=== PATIENT | male | born 1980 | race African-American/Black ===

== ENCOUNTER 2019-03-19 09:29 | Emergency (ER) | payer OTHER ==
--- NOTE | 2019-03-19 10:11 | ER ---
Nurse's Notes [facility] Name: Kishor Grajeda Age: 38 yrs Sex: Male : 1980 Arrival Date: 03/19/2019 Time: 09:31 Bed 20 Private MD: Diagnosis: Influenza due to identified novel influenza A virus Presentation: 03/19 09:40 Presenting complaint: Patient states: cough, body aches and chills that began 3 days ss ago. Transition of care: patient was not received from another setting of care. Onset of symptoms was March 16, 2019. Risk Assessment: Do you want to hurt yourself or someone else? Patient reports no desire to harm self or others. Initial Sepsis Screen: Does the patient meet any 2 criteria? No. Patient's initial sepsis screen is negative. Does the patient have a suspected source of infection? No. Patient's initial sepsis screen is negative. Care prior to arrival: None. 09:40 Method Of Arrival: Ambulatory ss 09:40 Acuity: RODRÍGUEZ 4 ss Triage Assessment: 09:40 General: Appears in no apparent distress. comfortable, ill, Behavior is calm, bp cooperative, appropriate for age. Pain: Complains of pain in GENERAL MALAISE. EENT: Reports nasal congestion. Neuro: No deficits noted. Cardiovascular: No deficits noted. Respiratory: No deficits noted. GI: No signs and/or symptoms were reported involving the gastrointestinal system. : No signs and/or symptoms were reported regarding the genitourinary system. Derm: No deficits noted. Musculoskeletal: No deficits noted. Historical: - Allergies: 09:42 No Known Allergies; ss - PMHx: 09:42 Diabetes - IDDM; ss - PSHx: 09:42 None; ss - Immunization history:: Adult Immunizations up to date. - Social history:: Smoking status: Patient reports the use of cigarette tobacco products, smokes one-half pack cigarettes per day. - Ebola Screening: : Patient denies exposure to infectious person Patient denies travel to an Ebola-affected area in the 21 days before illness onset. Screenin:40 Abuse screen: Denies threats or abuse. Denies injuries from another. Nutritional bp screening: No deficits noted. Tuberculosis screening: No symptoms or risk factors identified. Fall Risk None identified. Assessment: 09:40 General: SEE TRIAGE NOTE. bp 10:38 Reassessment: PT D/C HOME AMBULATORY, DX WITH INFLUENZA. bp Vital Signs: 09:39 BP 147 / 102; Pulse 105; Resp 14; Temp 99.7(TE); Pulse Ox 98% on R/A; Weight 79.38 kg; ss Height 6 ft. 0 in. (182.88 cm); Pain 6/10; 10:39 BP 151 / 95; Pulse 97; Resp 17; Temp 99.9; Pulse Ox 98% ; bp 09:39 Body Mass Index 23.73 (79.38 kg, 182.88 cm) ED Course: 09:31 Patient arrived in ED. ds1 09:36 Kings Marrero, RN is Primary Nurse. bp 09:39 Arm band placed on right wrist. ss 09:40 Chikis Gallegos F[facility]-C [facility]. kb 09:40 Mikhail Jacobs MD is Attending Physician. kb 09:40 Patient has correct armband on for positive identification. Bed in low position. Call bp light in reach. Side rails up X2. 09:41 Triage completed. ss 10:39 No provider procedures requiring assistance completed. Patient did not have IV access bp during this emergency room visit. Administered Medications: No medications were administered Outcome: 10:10 Discharge ordered by MD. kb 10:39 Discharged to home ambulatory. bp 10:39 Condition: stable 10:39 Discharge instructions given to patient, Instructed on discharge instructions, follow up and referral plans. Demonstrated understanding of instructions, follow-up care. 10:40 Patient left the ED. bp Signatures: Chikis Gallegos FNP-C FNP-Ckb Sanford, Demi ds1 Ember Eason RN RN Kings Marrero, RN RN bp
--- NOTE | 2019-03-19 10:12 | EDPHYS ---
Physician Documentation [facility] Name: Kishor Grajeda Age: 38 yrs Sex: Male : 1980 Arrival Date: 03/19/2019 Time: 09:31 Bed 20 Private MD: ED Physician Mikhail Jacobs HPI: 03/19 10:23 This 38 yrs old Black Male presents to ER via Ambulatory with complaints of Flu kb Symptoms. 10:29 The patient or guardian reports cough, that is intermittent, described as moderate, kb with no sputum, flu symptoms, low-grade fever, myalgias. Onset: The symptoms/episode began/occurred 4 day(s) ago. Severity of symptoms: At their worst the symptoms were moderate, in the emergency department the symptoms are unchanged. Modifying factors: The symptoms are alleviated by nothing, the symptoms are aggravated by nothing. Associated signs and symptoms: Pertinent positives: fever, rhinorrhea, sore throat. The patient has not experienced similar symptoms in the past. The patient has not recently seen a physician. Historical: - Allergies: 09:42 No Known Allergies; ss - PMHx: 09:42 Diabetes - IDDM; ss - PSHx: 09:42 None; ss - Immunization history:: Adult Immunizations up to date. - Social history:: Smoking status: Patient reports the use of cigarette tobacco products, smokes one-half pack cigarettes per day. - Ebola Screening: : Patient denies exposure to infectious person Patient denies travel to an Ebola-affected area in the 21 days before illness onset. ROS: 10:23 Cardiovascular: Negative for chest pain, palpitations, and edema, Abdomen/GI: Negative kb for abdominal pain, nausea, vomiting, diarrhea, and constipation, Back: Negative for injury and pain, : Negative for injury, bleeding, discharge, and swelling, MS/Extremity: Negative for injury and deformity, Skin: Negative for injury, rash, and discoloration, Neuro: Negative for headache, weakness, numbness, tingling, and seizure. 10:23 Constitutional: Positive for body aches, chills, fatigue, fever, malaise, poor PO intake. 10:23 ENT: Positive for rhinorrhea, sore throat. 10:23 Respiratory: Positive for cough, Negative for dyspnea on exertion, hemoptysis, orthopnea, pleurisy, shortness of breath, sputum production, wheezing. Exam: 10:23 Constitutional: This is a well developed, well nourished patient who is awake, alert, kb and in no acute distress. Head/Face: Normocephalic, atraumatic. ENT: Nares patent. No nasal discharge, no septal abnormalities noted. Tympanic membranes are normal and external auditory canals are clear. Oropharynx with no redness, swelling, or masses, exudates, or evidence of obstruction, uvula midline. Mucous membranes moist. Neck: Trachea midline, no thyromegaly or masses palpated, and no cervical lymphadenopathy. Supple, full range of motion without nuchal rigidity, or vertebral point tenderness. No Meningismus. Chest/axilla: Normal chest wall appearance and motion. Nontender with no deformity. No lesions are appreciated. Cardiovascular: Regular rate and rhythm with a normal S1 and S2. No gallops, murmurs, or rubs. Normal PMI, no JVD. No pulse deficits. Respiratory: Lungs have equal breath sounds bilaterally, clear to auscultation and percussion. No rales, rhonchi or wheezes noted. No increased work of breathing, no retractions or nasal flaring. Abdomen/GI: Soft, non-tender, with normal bowel sounds. No distension or tympany. No guarding or rebound. No evidence of tenderness throughout. Skin: Warm, dry with normal turgor. Normal color with no rashes, no lesions, and no evidence of cellulitis. MS/ Extremity: Pulses equal, no cyanosis. Neurovascular intact. Full, normal range of motion. Neuro: Awake and alert, GCS 15, oriented to person, place, time, and situation. Cranial nerves II-XII grossly intact. Motor strength 5/5 in all extremities. Sensory grossly intact. Cerebellar exam normal. Normal gait. Vital Signs: 09:39 BP 147 / 102; Pulse 105; Resp 14; Temp 99.7(TE); Pulse Ox 98% on R/A; Weight 79.38 kg; ss Height 6 ft. 0 in. (182.88 cm); Pain 6/10; 10:39 BP 151 / 95; Pulse 97; Resp 17; Temp 99.9; Pulse Ox 98% ; bp 09:39 Body Mass Index 23.73 (79.38 kg, 182.88 cm) ss MDM: 09:40 Patient medically screened. kb 10:10 Data reviewed: vital signs, nurses notes. Data interpreted: Pulse oximetry: on room air kb is 98 %. Interpretation: normal. Counseling: I had a detailed discussion with the patient and/or guardian regarding: the historical points, exam findings, and any diagnostic results supporting the discharge/admit diagnosis, lab results, the need for outpatient follow up, a family practitioner, to return to the emergency department if symptoms worsen or persist or if there are any questions or concerns that arise at home. 03/19 09:40 Order name: Flu; Complete Time: 10:01 kb 03/19 09:40 Order name: Strep; Complete Time: 10:10 kb 03/19 10:08 Order name: Throat Culture EDMS Administered Medications: No medications were administered Disposition: 03/20 07:55 Co-signature as Attending Physician, Mikhail Jacobs MD I agree with the assessment and tw4 plan of care. Disposition: 03/19/19 10:10 Discharged to Home. Impression: Influenza due to identified novel influenza A virus. - Condition is Stable. - Discharge Instructions: Influenza, Adult, [id number], Viral Respiratory Infection, [id number]. - Medication Reconciliation Form, Thank You Letter, Antibiotic Education, Prescription Opioid Use, Work release form form. - Follow up: Emergency Department; When: As needed; Reason: Worsening of condition. Follow up: Private Physician; When: 2 - 3 days; Reason: Recheck today's complaints, Continuance of care, Re-evaluation by your physician. Signatures: Dispatcher [employer] EDSC Chikis Gallegos, DARBY-C DARBY-Ember Langston RN RN ss Peltier, Brian, RN RN bp Wadley, Terrence, MD MD tw4 Corrections: (The following items were deleted from the chart) 03/19 10:40 10:10 03/19/2019 10:10 Discharged to Home. Impression: Influenza due to identified bp novel influenza A virus. Condition is Stable. Forms are Medication Reconciliation Form, Thank You Letter, Antibiotic Education, Prescription Opioid Use. Follow up: Emergency Department; When: As needed; Reason: Worsening of condition. Follow up: Private Physician; When: 2 - 3 days; Reason: Recheck today's complaints, Continuance of care, Re-evaluation by your physician. kb
== END 2019-03-19 10:40 | disposition home or self-care (01) ==
LOC: ER 09:29
DX: J10.1 Influenza due to other identified influenza virus with other respiratory manifestations (principal); F17.210 Nicotine dependence, cigarettes, uncomplicated
CPT/HCPCS: 87070; 87081; 87804; 99281

== ENCOUNTER 2022-02-09 11:23 | Inpatient (IN) | payer SELFPAY ==
--- NOTE | 2022-02-09 12:22 | ER ---
Nurse's Notes [facility] Name: Kishor Grajeda Age: 41 yrs Sex: Male : 1980 Arrival Date: 02/09/2022 Time: 11:25 Bed 7 Private MD: Diagnosis: Cellulitis of right lower limb;Type 2 diabetes mellitus with foot ulcer;Hypo-osmolality and hyponatremia;Sepsis without end organ dysfunction Presentation: 02/09 11:59 Chief complaint: Patient states: right foot infection x2 months; has been seeing wound [facility] care here on campus x2 months, was placed on oral antibiotics last week and isnt getting better. Coronavirus screen: Vaccine status: Patient reports being unvaccinated. Client denies travel out of the [place] in the last 14 days. Ebola Screen: Patient negative for fever greater than or equal to 101.5 degrees Fahrenheit, and additional compatible Ebola Virus Disease symptoms Patient denies exposure to infectious person. Patient denies travel to an Ebola-affected area in the 21 days before illness onset. Initial Sepsis Screen: Does the patient meet any 2 criteria? No. Patient's initial sepsis screen is negative. Does the patient have a suspected source of infection? No. Patient's initial sepsis screen is negative. Risk Assessment: Do you want to hurt yourself or someone else? Patient reports no desire to harm self or others. 11:59 Method Of Arrival: Ambulatory [facility] 11:59 Acuity: RODRÍGUEZ 3 [facility] Triage Assessment: 12:01 General: Appears uncomfortable, slender, well groomed, well developed, Behavior is [facility] calm, cooperative, appropriate for age. Pain: Denies pain. Historical: - Allergies: 12:01 No Known Allergies; [facility] - Home Meds: 15:36 Glimepiride Oral 4 mg twice a day [Active]; aa5 - PMHx: 15:36 Diabetes mellitus; aa5 - Immunization history:: Adult Immunizations up to date. - Social history:: Smoking status: Patient reports the use of cigarette tobacco products, denies chronic smoking, but will smoke occasionally. Screenin:35 Abuse screen: Denies threats or abuse. Denies injuries from another. Nutritional iw screening: No deficits noted. Tuberculosis screening: No symptoms or risk factors identified. Fall Risk IV access (20 points). Assessment: 12:45 Reassessment: First set of blood cultures sent. mb9 Vital Signs: 11:59 BP 148 / 97; Pulse 110; Resp 18; Temp 98.6; Pulse Ox 100% ; Weight 74.84 kg; Height 6 5 ft. 0 in. (182.88 cm); Pain 0/10; 13:08 BP 130 / 95; Pulse 104; Resp 18; Pulse Ox 100% on R/A; mb9 20:21 BP 125 / 88; Pulse 114; Resp 18; Pulse Ox 100% on R/A; ll3 11:59 Body Mass Index 22.38 (74.84 kg, 182.88 cm) 5 ED Course: 11:25 Patient arrived in ED. mr 11:26 Anton Corral DO is Attending Physician. ms3 12:01 Triage completed. 5 12:01 Arm band placed on right wrist. 5 12:03 Nathalie Rios, RN is Primary Nurse. iw 12:21 Everardo Mcgee is Hospitalizing Provider. ms3 12:40 Inserted saline lock: 20 gauge in right forearm, using aseptic technique. Blood mb9 collected. 12:53 SARS RAPID Sent. mb9 12:54 CBC with Diff Sent. mb9 12:54 CMP Sent. mb9 12:54 Lactate w/ 2H reflex if indic. Sent. mb9 12:54 Protime (+inr) Sent. mb9 12:54 Ptt, Activated Sent. mb9 13:07 Blood Culture Adult (2) Sent. mb9 13:35 Patient has correct armband on for positive identification. Bed in low position. Call iw light in reach. Side rails up X 1. Pulse ox on. NIBP on. Administered Medications: 13:04 Drug: NS 0.9% 1000 ml Route: IV; Rate: 1000 ml; Site: right forearm; mb9 13:15 Drug: vancoMYCIN 1 grams Route: IVPB; Infused Over: 2 hrs; Site: right antecubital; iw 13:24 Drug: Cipro (ciprofloxacin) 400 mg Volume: 200 ml; Route: IVPB; Infused Over: 60 mins; iw Site: left antecubital; Outcome: 12:21 Decision to Hospitalize by Provider. ms3 20:35 Patient left the ED. jb4 Signatures: Kaitlyn Urena mr Nathalie Rios, RN RN iw Franny Greene RN RN [id number] Jameel Do RN RN jb4 Anton Corral, DO CUELLAR ms3 Latasha Nassar RN RN jh5 Ainsley Palomino RN RN ll3 Kaitlyn Dyson RN RN mb9 Corrections: (The following items were deleted from the chart) 15:37 12:01 PMHx: Diabetes - IDDM; Nasra aa5
--- NOTE | 2022-02-09 12:22 | EDPHYS ---
Physician Documentation [facility] Name: Kishor Grajeda Age: 41 yrs Sex: Male : 1980 Arrival Date: 02/09/2022 Time: 11:25 Bed 7 Private MD: ED Physician Anton Corral HPI: 02/09 12:37 This 41 yrs old Black Male presents to ER via Ambulatory with complaints of Wound ms3 Infection. 12:37 The patient's rash thought to be caused by Ulceration on foot. The rash is located on ms3 the right lateral foot. The rash can be described as Ulceration. Onset: The symptoms/episode began/occurred 1 week(s) ago. Associated signs and symptoms: Pertinent positives: Pain Pertinent negatives:. Severity of symptoms: At their worst the symptoms were moderate in the emergency department the symptoms are unchanged Pain is currently a 5 / 10. 41-year-old male with past medical history of diabetes presents for right foot ulceration, and cellulitis. Patient was seen in wound care clinic and sent to the emergency department for admission.. Historical: - Allergies: 12:01 No Known Allergies; jh5 - Home Meds: 15:36 Glimepiride Oral 4 mg twice a day [Active]; aa5 - PMHx: 15:36 Diabetes mellitus; aa5 - Immunization history:: Adult Immunizations up to date. - Social history:: Smoking status: Patient reports the use of cigarette tobacco products, denies chronic smoking, but will smoke occasionally. ROS: 12:37 Constitutional: Negative for fever, and chills. Neck: Negative for injury, pain, and ms3 swelling, Cardiovascular: Negative for chest pain, and palpitations. Respiratory: Negative for shortness of breath, cough, wheezing, and pleuritic chest pain, Abdomen/GI: Negative for abdominal pain, nausea, vomiting, diarrhea, and constipation, MS/Extremity: Negative for injury and deformity. 12:37 Skin: Positive for ulceration. 12:37 All other systems are negative. Exam: 12:37 Constitutional: This is a well developed, well nourished patient who is awake, alert, ms3 and in no acute distress. Head/Face: Normocephalic, atraumatic. Neck: Trachea midline, no cervical lymphadenopathy. Supple, full range of motion without nuchal rigidity, or vertebral point tenderness. No Meningismus. Chest/axilla: Normal chest wall appearance and motion. Nontender with no deformity. Cardiovascular: Regular rate and rhythm with a normal S1 and S2. No gallops, murmurs, or rubs. Normal PMI, no JVD. No pulse deficits. Respiratory: Lungs have equal breath sounds bilaterally, clear to auscultation and percussion. No rales, rhonchi or wheezes noted. No increased work of breathing, no retractions or nasal flaring. Abdomen/GI: Soft, non-tender, with normal bowel sounds. No distension or tympany. No guarding or rebound. No evidence of tenderness throughout. 12:37 Skin: lesion(s), noted, and can be described as erythematous, ulcerated, Foul smelling. 13:15 ECG was reviewed by the Attending Physician. ms3 Vital Signs: 11:59 BP 148 / 97; Pulse 110; Resp 18; Temp 98.6; Pulse Ox 100% ; Weight 74.84 kg; Height 6 jh5 ft. 0 in. (182.88 cm); Pain 0/10; 13:08 BP 130 / 95; Pulse 104; Resp 18; Pulse Ox 100% on R/A; mb9 20:21 BP 125 / 88; Pulse 114; Resp 18; Pulse Ox 100% on R/A; ll3 11:59 Body Mass Index 22.38 (74.84 kg, 182.88 cm) 5 MDM: 11:26 Patient medically screened. ms3 12:37 Differential diagnosis: Cellulitis vs Gangrene vs Diabetic foot ulcer. ms3 18:53 Data reviewed: vital signs, nurses notes, lab test result(s), EKG, radiologic studies, ms3 and as a result, I will admit patient. Counseling: I had a detailed discussion with the patient and/or guardian regarding: the historical points, exam findings, and any diagnostic results supporting the discharge/admit diagnosis, lab results, radiology results, the need for further work-up and treatment in the hospital. ED course: Case discussed with hospitalist and accepted patient. All questions were answered. Discussed plan for admission with patient and his they understand and agree with plan.. 02/09 12:17 Order name: Blood Culture Adult (2) ms3 02/09 12:17 Order name: CBC with Diff; Complete Time: 13:14 ms3 02/09 12:17 Order name: CMP; Complete Time: 18:53 ms3 02/09 12:17 Order name: Lactate w/ 2H reflex if indic.; Complete Time: 13:32 ms3 02/09 12:17 Order name: Protime (+inr); Complete Time: 13:14 ms3 02/09 12:17 Order name: Ptt, Activated; Complete Time: 13:14 ms3 02/09 12:27 Order name: SARS RAPID; Complete Time: 13:32 mb9 02/09 12:57 Order name: Glucose, Ancillary Testing; Complete Time: 13:14 EDMS 02/09 13:57 Order name: Phosphorus; Complete Time: 18:53 EDMS 02/09 13:57 Order name: Creatine Phosphokinase; Complete Time: 18:53 EDMS 02/09 13:57 Order name: NT PRO-BNP; Complete Time: 18:53 EDMS 02/09 13:57 Order name: Magnesium; Complete Time: 18:53 EDMS 02/09 16:40 Order name: Glucose, Ancillary Testing; Complete Time: 18:53 EDMS 02/09 12:17 Order name: EKG; Complete Time: 12:18 ms3 02/09 12:17 Order name: Accucheck; Complete Time: 12:53 ms3 02/09 12:17 Order name: Cardiac monitoring; Complete Time: 12:24 ms3 02/09 12:17 Order name: EKG - Nurse/Tech; Complete Time: 12:53 ms3 02/09 12:17 Order name: IV Saline Lock - Large Bore; Complete Time: 12:54 ms3 02/09 12:17 Order name: Labs collected and sent; Complete Time: 12:54 ms3 02/09 12:17 Order name: O2 Per Protocol; Complete Time: 12:24 ms3 02/09 12:17 Order name: O2 Sat Monitoring; Complete Time: 12:24 ms3 02/09 12:17 Order name: Vital Signs; Complete Time: 12:54 ms3 EC:15 Rate is 107 beats/min. Rhythm is regular. Right axis deviation noted. OH interval is ms3 normal. QRS interval is normal. Clinical impression: Sinus tachycardia. Interpreted by me. Reviewed by me. Administered Medications: 13:04 Drug: NS 0.9% 1000 ml Route: IV; Rate: 1000 ml; Site: right forearm; mb9 13:15 Drug: vancoMYCIN 1 grams Route: IVPB; Infused Over: 2 hrs; Site: right antecubital; iw 13:24 Drug: Cipro (ciprofloxacin) 400 mg Volume: 200 ml; Route: IVPB; Infused Over: 60 mins; iw Site: left antecubital; Disposition Summary: 02/09/22 12:21 Hospitalization Ordered Hospitalization Status: Inpatient Admission ms3 Provider: Everardo Mcgee ms3 Location: Telemetry/MedSurg (Inpatient) ms3 Condition: Stable ms3 Problem: new ms3 Symptoms: are unchanged ms3 Bed/Room Type: Standard ms3 Room Assignment: 209(02/09/22 18:47) bd Diagnosis - Cellulitis of right lower limb ms3 - Type 2 diabetes mellitus with foot ulcer ms3 - Hypo-osmolality and hyponatremia ms3 - Sepsis without end organ dysfunction ms3 Forms: - Medication Reconciliation Form ms3 - SBAR form ms3 Signatures: Dispatcher [employer] EDNani Dudley bd Nathalie Rios RN RN Franny Greene RN RN aa5 Anton Corral DO DO ms3 Latasha Nassar RN RN 5 Kaitlyn Dyson RN RN mb9 Corrections: (The following items were deleted from the chart) 15:37 12:01 PMHx: Diabetes - IDDM; 5 aa5 18:47 12:21 ms3 bd
[2022-02-09] MEDS ORDERED: VANCOMYCIN 1 GM/VIAL ONE (12:48)
[2022-02-09] MEDS ORDERED: ACETAMINOPHEN 325 MG TABLET PO PRN (12:48)
[2022-02-09] MEDS ORDERED: NA CHLORIDE 0.9% 0 ML ONE (12:49)
[2022-02-09] MEDS ORDERED: CIPROFLOXACIN 400mg IV 400 MG/200 ML BAG IV ONE (12:49)
[2022-02-09] MEDS ORDERED: NA CHLORIDE 0.9% 1,000 ML ONE (12:49)
[2022-02-09] MEDS ORDERED: ONDANSETRON 4 MG/2 ML VIAL IV PRN (12:50)
--- NOTE | 2022-02-09 12:57 | P.HP ---
Certification for Inpatient Patient admitted to: Inpatient With expected LOS: >2 Midnights Patient will require the following post-hospital care: None Practitioner: I am a practitioner with admitting privileges, knowledge of patient current condition, hospital course, and medical plan of care. Services: Services provided to patient in accordance with Admission requirements found in Title 42 Section 412.3 of the Code of Federal Regulations Patient History Date of Service: 02/09/22 Reason for admission: Right foot diabetic ulcer. History of Present Illness: Patient is a 41-year-old male with a past medical history significant for DM 2 and nicotine dependence who presents with complaint of right foot diabetic ulcer. Patient reported that he has been following up with a wound care clinic for his diabetic foot ulcer on his right foot for the past 2 months. Patient reported that he was prescribed antibiotics by the wound care doctor and a couple of days patient developed a blister on top of his right foot. Patient indicated that blister became enlarged and turned into a wound. Patient also reports drainage and odor from both wounds-- on top of his foot and below his foot. Patient also reports pain, redness and swelling to his right foot. Patient rated pain as 5/10 in severity and described pain as throbbing in quality. Patient denies any other signs or symptoms. Symptoms are aggravated by weight bearing and relieved by nothing. Patient reported that he followed up with his wound care clinic today and was instructed to go to the ER for further management. Allergies No Known Drug Allergies Allergy (Verified 02/09/22 16:42) Unknown Home Medications: Glyburide [Diabeta] 10 mg PO BID #60 tablet 03/12/13 - Past Medical/Surgical History Diabetic: Yes -: DM Past Surgical History: Reviewed- Non-Contributory - Family History Family History: Reviewed- Non-Contributory - Social History Smoking Status: Current every day smoker Counseled patient to stop smoking for: less than 10 minutes Smoking therapy provided: Yes Patient receptive to therapy: Yes Alcohol use: No CD- Drugs: No Caffeine use: Yes Place of Residence: Home Review of Systems General: Unremarkable Eyes: Unremarkable ENT: Unremarkable Respiratory: Unremarkable Cardiovascular: Unremarkable Gastrointestinal: Unremarkable Genitourinary: Unremarkable Musculoskeletal: Foot Pain, Other (Right foot swelling ) Integumentary: Other (right foot redness ) Neurological: Unremarkable Lymphatics: Unremarkable Physical Examination - Physical Exam General: Alert, In no apparent distress, Oriented x3, Cooperative HEENT: Atraumatic, PERRLA, Mucous membr. moist/pink, EOMI, Sclerae nonicteric Neck: Supple, 2+ carotid pulse no bruit, No LAD, Without JVD or thyroid abnormality Respiratory: Clear to auscultation bilaterally, Normal air movement Cardiovascular: Regular rate/rhythm, Normal S1 S2 Capillary refill: <2 Seconds Gastrointestinal: Normal bowel sounds, Non-distended, No tenderness Musculoskeletal: Swelling, Tenderness Integumentary: Skin breakdown, Erythema, Diabetic ulcer Neurological: Normal speech, Normal tone, Normal affect Lymphatics: No axilla or inguinal lymphadenopathy Assessment and Plan - Plan --Right foot diabetic ulcer. Surgeon consulted. MRI of right foot to assess for osteomyelitis. Blood cultures pending. Continue antibiotics. Infectious disease MD consulted. Will await further recommendation from consultants. --Right foot cellulitis. Blood cultures pending. Continue antibiotics. --Acute pain. We will manage pain with current pain medication regimen. --DM2 with hyperglycemia. BS monitoring with sliding scale insulin, Premeal insulin and Lantus. --Leukocytosis. Blood cultures pending. Continue antibiotics. --Anemia of chronic disease. H&H stable. We will continue to monitor hemoglobin and transfuse if less than 7.0. --Hyponatremia. Likely secondary to hyperglycemia. We will keep blood sugar controlled. We will continue to monitor sodium levels. --CKD 2. Stable. We will continue to monitor renal functions. --DVT prophylaxis with heparin subQ. Discharge Plan: Home Plan to discharge in: Greater than 2 days - Advance Directives Does patient have a Living Will: No Does patient have a Durable POA for Healthcare: No - Code Status/Comfort Care Code Status Assessed: Yes Physician Review: Patient Assessed, Agree with Above Assessment and Plan Critical Care: No
[2022-02-09 12:58] LABS: Absolute Lymphocytes (CBC) 1.6 K/uL (0.7-4.9); Lymphocytes % 11.1 % (15.3-44.8); MCV 89.1 fL (80-100); MPV 7.8 fL (7.6-11.3); RBC Red Blood Cell Count 3.37 M/uL (4.33-5.43)
[2022-02-09 13:05] LABS: Protime INR 1.16
[2022-02-09 13:15] LABS: SARS-CoV-2 Antigen Rapid Res Negative (Negative)
[2022-02-09 13:17] LABS: AST/SGOT 4 U/L (15-37); Albumin 2.7 g/dL (3.4-5.0); Alkaline Phosphatase 94 U/L (45-117); BUN Blood Urea Nitrogen 14 mg/dL (7-18); Bicarbonate 27 mmol/L (21-32); Bilirubin Total 0.9 mg/dL (0.2-1.0); Glomerular Filtration Rate 77 ml/min (=/>90); Potassium 4.8 mmol/L (3.5-5.1); Protein, Total 9.3 g/dL (6.4-8.2); Sodium Level 127 mmol/L (136-145)
[2022-02-09 13:32] LABS: ALT/SGPT < 10 U/L (16-61)
[2022-02-09 13:33] LABS: Glucose Level 416 mg/dL (74-106)
[2022-02-09 13:57] LABS: Magnesium 2.6 mg/dL (1.6-2.4); Phosphorus 3.6 mg/dL (2.5-4.9)
[2022-02-09] MEDS ORDERED: VANCOMYCIN 500 MG in NA CHLORIDE 0.9% 100 ML IVPB ONE (14:00)
[2022-02-09] MEDS: ASPIRIN 81 MG CHEWABLE TABLET PO SCH (14:00)
--- NOTE | 2022-02-09 14:34 | EKG ---
Test Date: 2022-02-09 Test Time: 12:59:19 Backup Operator: MB MEASUREMENT RESULTS: Intervals: Rate: 107 RI: 116 QRSD: 78 QT: 330 QTc: 440 [place]: P: 84 RI: 116 QRS: 81 T: 4 INTERPRETIVE STATEMENTS: Sinus tachycardia Minimal voltage criteria for LVH, may be normal variant Nonspecific T wave abnormality Abnormal ECG Compared to ECG 03/10/2013 21:46:20 Left ventricular hypertrophy now present T-wave abnormality now present Electronically Signed On 02-09-22 14:33:07 PHYSICIAN OFFICE [facility] by Satinder Fernando
[2022-02-09] MEDS ORDERED: D50W 25 GM/50 ML SYRINGE IV PRN (15:29)
[2022-02-09] MEDS ORDERED: GLUCAGON 1 MG/VIAL IM PRN ×2 (15:29→15:30)
[2022-02-09 15:36] VITALS: BMI 22.4
[2022-02-09] MEDS ORDERED: D10W 250 ML BAG IV PRN (15:36)
[2022-02-09] MEDS: INSULIN LISPRO 100 UNIT/1 ML SQ SCH ×2 (16:00→17:00)
[2022-02-09] MEDS: INSULIN -REGULAR HUMAN 50 UNIT/0.5 ML ML SQ SCH ×2 (16:30→22:47)
[2022-02-09] MEDS ORDERED: INSULIN -REGULAR HUMAN 50 UNIT/0.5 ML ML ONE (16:41)
[2022-02-09] MEDS ORDERED: ASPIRIN 81 MG CHEWABLE TABLET ONE (16:42)
[2022-02-09] MEDS ORDERED: NA CHLORIDE 0.9% 100 ML IV ONE (16:58)
[2022-02-09] MEDS ORDERED: CEFEPIME 2 GM VIAL ONE (16:58)
[2022-02-09] MEDS: CEFEPIME 2 GM in NA CHLORIDE 0.9% 100 ML IV SCH ×2 (17:15→22:48)
[2022-02-09] MEDS: HEPARIN 5000 UNIT/ML 1 ML VIAL SQ SCH (21:00)
[2022-02-09] MEDS: INSULIN GLARGINE 100 UNIT/ML SQ SCH (22:47)
[2022-02-09] MEDS: NICOTINE 21 MG/PAT TD SCH (22:48)
[2022-02-10] MEDS ORDERED: VANCOMYCIN 500 MG/VIAL ONE (00:50)
[2022-02-10] MEDS ORDERED: VANCOMYCIN 1.25 GM in NA CHLORIDE 0.9% 250 ML IVPB SCH (01:00)
[2022-02-10 01:24] LABS: Specific Gravity 1.017 (1.005-1.030); Urine Bilirubin NEGATIVE (Negative); Urine Blood Negative (Negative); Urine Clarity Clear (Clear); Urine Color Light-Yellow (Yellow); Urine Glucose 4+ (Over) (Negative); Urine Mucus Slight /HPF (None Seen); Urine Protein TRACE (Negative); Urine RBC <5 /HPF (None Seen); Urine Urobilinogen Normal (Normal); Urine pH 5.5 (5.0-7.0)
[2022-02-10 05:02] LABS: Absolute Lymphocytes (CBC) 1.7 K/uL (0.7-4.9); Hematocrit 22.2 % (39.6-49.0); Lymphocytes % 16.1 % (15.3-44.8); MCV 88.9 fL (80-100); MPV 7.3 fL (7.6-11.3)
[2022-02-10 05:06] LABS: Protime INR 1.11
[2022-02-10 05:19] LABS: Potassium 3.7 mmol/L (3.5-5.1)
[2022-02-10] MEDS: CEFEPIME 2 GM in NA CHLORIDE 0.9% 100 ML IV SCH ×3 (05:27→21:53)
[2022-02-10] MEDS: INSULIN -REGULAR HUMAN 50 UNIT/0.5 ML ML SQ SCH ×4 (07:30→21:55)
[2022-02-10] MEDS: INSULIN LISPRO 100 UNIT/1 ML SQ SCH ×3 (08:00→17:00)
[2022-02-10] MEDS ORDERED: NA CHLORIDE 0.9% 1,000 ML ONE (08:33)
[2022-02-10] MEDS ORDERED: INSULIN -REGULAR HUMAN 50 UNIT/0.5 ML ML ONE (08:43)
[2022-02-10] MEDS: HEPARIN 5000 UNIT/ML 1 ML VIAL SQ SCH ×2 (09:00→21:54)
--- NOTE | 2022-02-10 09:08 | RAD REPORT ---
EXAM DESCRIPTION: MRI - Foot Right Wo Cont - 02/10/2022 7:59 am CLINICAL HISTORY: Right foot Diabetic Ulcer R o osteomylitis Pain, swelling, osteomyelitis. COMPARISON: No comparisons FINDINGS: Soft tissue ulceration is seen along the lateral midfoot adjacent proximally to the region of the base of the fifth metatarsal. Flatfoot deformity is suspected. Plantar fascia and Achilles te ndon appear intact. Diminished T1 marrow signal is seen in the fifth metatarsal with elevated T2/IR signal also present. This is most compatible with osteomyelitis. This abnormal signal also extends to involve the proximal phalanx of the fifth toe. Moderate marrow edema is also present in the fourth metatarsal as well as the proximal phalanx of the fourth toe. No soft tissue mass or hematoma seen. No drainable fluid collection. IMPRESSION: Moderate osteomyelitis is present involving the fifth metatarsal shaft and proximal phal anx of the fifth toe. Edema signal seen within the marrow of the fourth metatarsal and proximal phalanx of the fourth toe f avored to be reactive in etiology.
--- NOTE | 2022-02-10 09:48 | CON ---
Date of Consultation: 02/10/2022 Diagnosis: Necrotic diabetic ulcers on the right foot. History Of Present Illness: This is the case of a 41-year-old patient, known by us [facility], comes to us with severe cellulitis of the right foot, multiple open wounds and n ecrotic areas. The patient has history of diabetes and has been advised in the past the importance o f using proper shoe wear, control his diabetes, and stop smoking. Regardless all this, he has been d eveloping these necrotic ulcers and this time the necrotic area was so large with a large blister wit h foul smelling and he was advised to come to the ER and get admitted for IV antibiotics and wound ca re. Allergies: NONE. Past Medical History: Diabetes. Social History: He smokes. He was counseled once again to stop smoking. He does not drink alcohol. Review of Systems: Right foot pain with foul smelling. Ten points otherwise unremarkable. Physical Examination: Chest: Clear. Heart: S1, S2. Abdomen: Soft and depressible. HEENT: Pupils equal and reactive. Anicteric. Neck: Supple. Extremities: Diminished pulses bilaterally dorsalis pedis, although is still present. There is necr otic tissue over the right foot, multiple areas between toes and also a large at least 10 cm area on the dorsum of the foot with fluctuance with foul smelling and purulent discharge. Laboratory Data: Blood work shows WBC count of 14 with hemoglobin of 10, platelets of 374. Glucose 416. Assessment: A 41-year-old patient with necrotic diabetic ulcers. He has been advised many times the importance of glucose control. This is despite antibiotics use. He understands the risks of losing his foot. He was explained many ways and many times how to also use proper shoe wear, but he is an active person and he is doing the best he can. Apparently, it is not enough to keep him away from th is situation, so we encouraged him to stop smoking once again, he has to have diabetes under control. Right now, it is in 400, which will have some affects in the future him and will start to see at th is moment that may include also losing his extremities, kidneys. He was explained the benefits, alte rnatives, and risks of debridement of these necrotic ulcers, which include, but not limited to infect ion, bleeding, damage to adjacent structures, anesthesia complication, nonhealing wounds, OR, and dionne n . He also understands this may not relieve any symptoms. He might need more than one surgica l intervention. He understands despite wound care antibiotics if he does not control his sugar, then eventually he will need an amputation of this foot. He also advised to follow with his vascular doc tors. ANILA/JAYNA Voice ID: [id number] Report ID: [id number]
[2022-02-10] MEDS ORDERED: propofoL 200 MG/20 ML VIAL IV ONE (09:52)
[2022-02-10] MEDS ORDERED: FENTANYL CITR 100 MCG/2 ML ONE (09:52)
[2022-02-10] MEDS ORDERED: MIDAZOLAM HCL 2 MG/2 ML INJ ONE (09:53)
[2022-02-10] MEDS ORDERED: LIDOCAINE 1% MPF 5 ML VIAL ONE (09:53)
[2022-02-10] MEDS ORDERED: ONDANSETRON 4 MG/2 ML VIAL ONE (10:12)
--- NOTE | 2022-02-10 10:24 | P.BOP ---
Preoperative diagnosis: Necrotic infected fouls smelling R foot Postoperative diagnosis: same Primary procedure: Excisional debridement down to fascia/tendon right foot ulcers 13x8cm Secondary procedure: Pulse lavage Estimated blood loss: <20cc Specimen: gangrenous tissue, culture Anesthesia: General Complications: None Drain(s): Other (wet to dry) Transferred to: Recovery Room Condition: Good
[2022-02-10] MEDS: NICOTINE 21 MG/PAT TD SCH (11:53)
[2022-02-10] MEDS: INSULIN GLARGINE 100 UNIT/ML SQ SCH (11:54)
[2022-02-10] MEDS: ASPIRIN 81 MG CHEWABLE TABLET PO SCH (11:54)
--- NOTE | 2022-02-10 13:30 | CON ---
This is a 41-year-old male. I was consulted for right foot osteomyelitis secondary to diabetic foot ulcers, MRI showing patient has fifth and fourth metatarsal and proximal phalanx involvement. The pa adali is currently being treated with cefepime and vancomycin. He has gone for surgical debridement. If no amputation of the bone, we will recommend to continue antibiotics for 6 weeks, closely monito r blood sugar levels. We will repeat blood patient once he comes back from his surgical debridement. Thank you for consult. PRIMITIVO/JAYNA Voice ID: [id number] Report ID: [id number]
[2022-02-10] MEDS: HYDROCODONE/APAP 10/325 TAB PO PRN (13:44)
[2022-02-10] MEDS: VANCOMYCIN 1.25 GM in NA CHLORIDE 0.9% 250 ML IVPB SCH (13:45)
--- NOTE | 2022-02-10 19:06 | P.PN ---
Subjective Date of Service: 02/10/22 Chief Complaint: Right foot diabetic ulcer. Status post excisional debridement of multiple wounds of the foot today. Physical Examination - Vital Signs Temperature: 97.8 F Blood Pressure: 115/74 Pulse: 102 Respirations: 16 Pulse Ox (%): 98 Assessment And Plan - Current Problems (Diagnosis) (1) Diabetic ulcer of right foot Current Visit: No Status: Chronic (2) Osteomyelitis of foot Current Visit: Yes Status: Acute - Plan Physical Exam General: Alert, In no apparent distress. Respiratory: Clear to auscultation bilaterally, Normal air movement Cardiovascular: Regular rate/rhythm, Normal S1 S2 Gastrointestinal: Normal bowel sounds, Non-distended, No tenderness Musculoskeletal: Swelling, Tenderness Integumentary: Skin breakdown, Erythema, Diabetic ulcer Neurological: No focal motor deficit. Plan: Infectious disease input appreciated. Continue current antibiotics. MRI of the foot is demonstrating osteomyelitis. Patient will need 6 weeks of IV antibiotics. PICC line insertion for outpatient antibiotics. Pain management as needed. General surgery to follow.
[2022-02-10] MEDS: AMINO ACIDS/PROTEIN HYDROLYS 30 ML LIQUID.PKT PO SCH (21:00)
[2022-02-11] MEDS: VANCOMYCIN 1.25 GM in NA CHLORIDE 0.9% 250 ML IVPB SCH ×2 (02:28→14:53)
[2022-02-11] MEDS: HYDROCODONE/APAP 10/325 TAB PO PRN ×3 (02:36→21:53)
[2022-02-11] MEDS ORDERED: CEFEPIME 2 GM VIAL ONE (05:26)
[2022-02-11] MEDS: CEFEPIME 2 GM in NA CHLORIDE 0.9% 100 ML IV SCH ×3 (05:28→21:53)
[2022-02-11] MEDS ORDERED: NA CHLORIDE 0.9% 100 ML ONE (05:28)
[2022-02-11] MEDS: AMINO ACIDS/PROTEIN HYDROLYS 30 ML LIQUID.PKT PO SCH ×2 (09:00→21:00)
[2022-02-11] MEDS: HEPARIN 5000 UNIT/ML 1 ML VIAL SQ SCH ×2 (09:31→21:50)
[2022-02-11] MEDS: NICOTINE 21 MG/PAT TD SCH (09:32)
[2022-02-11] MEDS: ASPIRIN 81 MG CHEWABLE TABLET PO SCH (09:32)
[2022-02-11] MEDS: INSULIN LISPRO 100 UNIT/1 ML SQ SCH ×3 (09:33→16:56)
[2022-02-11] MEDS: INSULIN GLARGINE 100 UNIT/ML SQ SCH (09:33)
--- NOTE | 2022-02-11 09:44 | P.PN ---
Subjective Date of Service: 02/11/22 Chief Complaint: Right foot diabetic ulcer. Subjective: No new changes Physical Examination - Vital Signs Temperature: 97.6 F Blood Pressure: 104/59 Pulse: 98 Respirations: 16 Pulse Ox (%): 97 - Physical Exam General: Alert, In no apparent distress, Oriented x3 HEENT: PERRLA Neck: Supple Integumentary: No rashes, Diabetic ulcer Neurological: Normal speech Assessment And Plan - Plan ID consult DM control santyl Physician Review: Patient Assessed, Agree with Above Assessment and Plan
[2022-02-11] MEDS: INSULIN -REGULAR HUMAN 50 UNIT/0.5 ML ML SQ SCH ×4 (09:49→21:50)
--- NOTE | 2022-02-11 13:29 | P.PN ---
Subjective Date of Service: 02/11/22 Chief Complaint: Right foot diabetic ulcer. Patient has no new complain. Blood sugar readings are elevated. Physical Examination - Vital Signs Temperature: 97.6 F Blood Pressure: 120/79 Pulse: 109 Respirations: 16 Pulse Ox (%): 100 Assessment And Plan - Current Problems (Diagnosis) (1) Diabetic ulcer of right foot Current Visit: No Status: Chronic (2) Osteomyelitis of foot Current Visit: Yes Status: Acute - Plan Physical Exam General: Alert, In no apparent distress. Respiratory: Clear to auscultation bilaterally, Normal air movement Cardiovascular: Regular rate/rhythm, Normal S1 S2 Gastrointestinal: Normal bowel sounds, Non-distended, No tenderness Musculoskeletal: Swelling, Tenderness Integumentary: Skin breakdown, Erythema, Diabetic ulcer Neurological: No focal motor deficit. Plan: Infectious disease is following. Continue current antibiotics. Deep tissue wound culture: GPC on gram stain. MRI of the foot is demonstrating osteomyelitis. Patient will need 6 weeks of IV antibiotics. He is unfunded. PICC line insertion for outpatient antibiotics. Pain management as needed. General surgery to follow. Social service consulted to assist with arrangement for outpatient antibiotics. Infectious diseases following. Outpatient antibiotic choice per infectious disease. Aggressive blood sugar control. Continue home dose glyburide. Insulin sliding scale Check hemoglobin A1c. Patient may need additional Novolin 70/30 for better blood sugar control pending hemoglobin A1c result. Physician Review: Patient Assessed, Agree with Above Assessment and Plan
[2022-02-11] MEDS ORDERED: GLUCAGON 1 MG/VIAL IM PRN (13:31)
[2022-02-11] MEDS ORDERED: D50W 25 GM/50 ML SYRINGE IV PRN (13:31)
[2022-02-11] MEDS: GLIMEPIRIDE 2 MG TABLET PO SCH (16:56)
[2022-02-11] MEDS ORDERED: INSULIN 70/30 100 UNITS/ML SQ SCH (21:00)
[2022-02-12] MEDS: VANCOMYCIN 1.25 GM in NA CHLORIDE 0.9% 250 ML IVPB SCH (02:13)
[2022-02-12] MEDS: CEFEPIME 2 GM in NA CHLORIDE 0.9% 100 ML IV SCH ×3 (05:50→21:37)
[2022-02-12] MEDS: INSULIN -REGULAR HUMAN 50 UNIT/0.5 ML ML SQ SCH ×4 (07:30→21:00)
[2022-02-12] MEDS: INSULIN LISPRO 100 UNIT/1 ML SQ SCH ×3 (08:00→17:39)
[2022-02-12] MEDS: AMINO ACIDS/PROTEIN HYDROLYS 30 ML LIQUID.PKT PO SCH ×2 (09:00→21:00)
[2022-02-12] MEDS: NICOTINE 21 MG/PAT TD SCH (09:00)
[2022-02-12] MEDS: HEPARIN 5000 UNIT/ML 1 ML VIAL SQ SCH ×2 (09:13→21:00)
[2022-02-12] MEDS: ASPIRIN 81 MG CHEWABLE TABLET PO SCH (09:13)
[2022-02-12] MEDS: GLIMEPIRIDE 2 MG TABLET PO SCH ×2 (09:13→17:38)
[2022-02-12] MEDS: HYDROCODONE/APAP 10/325 TAB PO PRN (09:21)
[2022-02-12] MEDS ORDERED: MORPHINE 2 MG/ML SYR IV ONE (10:41)
--- NOTE | 2022-02-12 12:07 | P.PN ---
Subjective Date of Service: 02/12/22 Chief Complaint: Right foot diabetic ulcer. Patient has no new complain. Blood sugar readings are better today. Physical Examination - Vital Signs Temperature: 97.9 F Blood Pressure: 119/70 Pulse: 104 Respirations: 16 Pulse Ox (%): 95 Assessment And Plan - Current Problems (Diagnosis) (1) Diabetic ulcer of right foot Current Visit: No Status: Chronic (2) Osteomyelitis of foot Current Visit: Yes Status: Acute - Plan Physical Exam General: Alert, In no apparent distress. Respiratory: Clear to auscultation bilaterally, Normal air movement Cardiovascular: Regular rate/rhythm, Normal S1 S2 Gastrointestinal: Normal bowel sounds, Non-distended, No tenderness Musculoskeletal: Swelling, Tenderness Integumentary: Diabetic ulcer-right foot, slough on debridded wound Neurological: No focal motor deficit. Plan: Infectious disease is following. Continue current antibiotics. Deep tissue wound culture: Streptococcus MRI of the foot is demonstrating osteomyelitis. Patient will need 6 weeks of IV antibiotics. He is unfunded. PICC line insertion for outpatient antibiotics. Pain management as needed. General surgery to follow. Social service consulted to assist with arrangement for outpatient antibiotics. Infectious diseases following. Outpatient antibiotic choice per infectious disease. Aggressive blood sugar control. Continue home dose glyburide. Holding Novolin 70/30 for now given improved blood sugar with glyburide. Continue insulin sliding scale and Premeal insulin. Hemoglobin A1c is 10.3.
--- NOTE | 2022-02-12 13:01 | PN ---
Subjective: The patient lying in bed. at the bedside. Status post debridement of his right fo ot wound and necrotic tissue. The patient continued to have foul odor and significant amount of pain in his right leg and foot. He had the change of wound dressing. Objective: Vital Signs: Temperature 97.9, pulse 100, respirations 16, blood pressure 119/70. Lungs: Clear to auscultation. Heart: S1, S2. Regular. Abdomen: Soft, nontender. Bowel sounds present. Extremities: Trace edema to the right foot region with necrotic wound status post debridement and pl antonio ulceration also noted. Laboratory Data: Shows WBC 10.4, hemoglobin 7.6, platelets are 308. Chemistry shows BUN of 16, crea tinine of 0.9. Wound cultures are pending. Assessment And Plan: Right foot diabetic foot ulcer, status post debridement. Recommend to clean th e wound with Dakin's solution half strength and apply Santyl. Keep foot elevated and apply Betadine to the bottom ulceration on plantar ulceration. Continue cefepime and vancomycin for 6 weeks for ost eomyelitis of fifth metatarsal and fifth toe. Prognosis is poor because of patient's longstanding hi story of tobacco use and poorly controlled diabetes mellitus. We will recommend aggressive wound car e and IV antibiotic and if no improvement, recommend possible amputation of the infected bones. We w ill continue to monitor the patient wound at this time and sugar level should be below 150 fasting. NF/MODL Voice ID: [id number] Report ID: [id number]
[2022-02-12 13:03] LABS: Hematocrit 22.5 % (39.6-49.0)
[2022-02-12] MEDS: VANCOMYCIN 1.5 GM in NA CHLORIDE 0.9% 500 ML IVPB SCH (13:56)
[2022-02-12] MEDS: HYDROCODONE/APAP 5/325 MG TAB PO PRN (20:55)
[2022-02-12] MEDS: SODIUM HYPOCHLORITE 0.25% 473 ML TOP SCH (21:00)
[2022-02-12] MEDS: MORPHINE 2 MG/ML SYR IV PRN (22:32)
[2022-02-13] MEDS: VANCOMYCIN 1.5 GM in NA CHLORIDE 0.9% 500 ML IVPB SCH (02:23)
[2022-02-13] MEDS: CEFEPIME 2 GM in NA CHLORIDE 0.9% 100 ML IV SCH ×3 (05:56→21:12)
[2022-02-13] MEDS: HYDROCODONE/APAP 5/325 MG TAB PO PRN ×3 (06:05→21:17)
[2022-02-13 06:30] LABS: Absolute Lymphocytes (CBC) 1.9 K/uL (0.7-4.9); Hematocrit 21.2 % (39.6-49.0); Lymphocytes % 18.8 % (15.3-44.8); MCV 91.4 fL (80-100); MPV 7.1 fL (7.6-11.3); RBC Red Blood Cell Count 2.32 M/uL (4.33-5.43)
[2022-02-13 06:35] LABS: Potassium 4.1 mmol/L (3.5-5.1)
[2022-02-13] MEDS: INSULIN -REGULAR HUMAN 50 UNIT/0.5 ML ML SQ SCH ×4 (07:30→21:13)
[2022-02-13] MEDS: INSULIN LISPRO 100 UNIT/1 ML SQ SCH ×3 (08:00→17:00)
[2022-02-13] MEDS ORDERED: GLUCAGON 1 MG/VIAL IM PRN (08:16)
[2022-02-13] MEDS ORDERED: DEXTROSE 10%-WATER 500 ML IV BAG IV PRN (08:24)
[2022-02-13] MEDS: GLIMEPIRIDE 2 MG TABLET PO SCH ×2 (08:51→17:08)
[2022-02-13] MEDS: ASPIRIN 81 MG CHEWABLE TABLET PO SCH (08:51)
[2022-02-13] MEDS: INSULIN 70/30 100 UNITS/ML SQ SCH ×2 (08:52→21:13)
[2022-02-13] MEDS: AMINO ACIDS/PROTEIN HYDROLYS 30 ML LIQUID.PKT PO SCH ×2 (09:00→21:00)
[2022-02-13] MEDS: NICOTINE 21 MG/PAT TD SCH (09:00)
[2022-02-13] MEDS: HEPARIN 5000 UNIT/ML 1 ML VIAL SQ SCH ×2 (09:00→21:00)
--- NOTE | 2022-02-13 11:58 | P.PN ---
Subjective Date of Service: 02/13/22 Chief Complaint: Right foot diabetic ulcer. Patient has no new complain. Blood sugar readings are elevated today. Physical Examination - Vital Signs Temperature: 98.1 F Blood Pressure: 118/71 Pulse: 104 Respirations: 18 Pulse Ox (%): 94 Assessment And Plan - Current Problems (Diagnosis) (1) Diabetic ulcer of right foot Current Visit: No Status: Chronic (2) Osteomyelitis of foot Current Visit: Yes Status: Acute - Plan Physical Exam General: Alert, In no apparent distress. Respiratory: Clear to auscultation bilaterally, Normal air movement Cardiovascular: Regular rate/rhythm, Normal S1 S2 Gastrointestinal: Normal bowel sounds, Non-distended, No tenderness Musculoskeletal: Swelling, Tenderness Integumentary: Diabetic ulcer-right foot, slough on debridded wound Neurological: No focal motor deficit. Plan: Infectious disease is following. Continue current antibiotics. Deep tissue wound culture: Streptococcus MRI of the foot shows osteomyelitis. Patient will need 6 weeks of IV antibiotics. He is unfunded. PICC line insertion for outpatient antibiotics. Pain management as needed. General surgery to follow and reassess wound. Wound care with [facility] recommended by infectious disease and surgery Social service consulted to assist with arrangement for outpatient antibiotics. Outpatient antibiotic choice per infectious disease. Aggressive blood sugar control. Continue home dose glyburide. Start Novolin 70/30. Blood glucose target less than 200. Continue insulin sliding scale and Premeal insulin. Hemoglobin A1c is 10.3.
[2022-02-13] MEDS: MORPHINE 2 MG/ML SYR IV PRN (13:40)
[2022-02-13] MEDS: COLLAGENASE 30 GM OINTMENT TOP SCH (14:21)
[2022-02-13] MEDS: SODIUM HYPOCHLORITE 0.25% 473 ML TOP SCH ×2 (14:22→21:00)
[2022-02-13] MEDS: VANCOMYCIN 1.75 GM in NA CHLORIDE 0.9% 500 ML IVPB SCH (15:43)
[2022-02-14] MEDS: VANCOMYCIN 1.75 GM in NA CHLORIDE 0.9% 500 ML IVPB SCH ×2 (03:55→15:23)
[2022-02-14] MEDS: HYDROCODONE/APAP 5/325 MG TAB PO PRN ×3 (03:56→20:04)
[2022-02-14 04:13] LABS: Absolute Lymphocytes (CBC) 2.1 K/uL (0.7-4.9); Lymphocytes % 18.9 % (15.3-44.8); MPV 6.8 fL (7.6-11.3); RBC Red Blood Cell Count 2.53 M/uL (4.33-5.43)
[2022-02-14 04:23] LABS: Potassium 4.1 mmol/L (3.5-5.1)
[2022-02-14] MEDS: CEFEPIME 2 GM in NA CHLORIDE 0.9% 100 ML IV SCH ×3 (05:53→21:30)
[2022-02-14] MEDS: INSULIN LISPRO 100 UNIT/1 ML SQ SCH ×3 (08:00→16:55)
[2022-02-14] MEDS: HEPARIN 5000 UNIT/ML 1 ML VIAL SQ SCH ×2 (09:00→21:00)
[2022-02-14] MEDS: AMINO ACIDS/PROTEIN HYDROLYS 30 ML LIQUID.PKT PO SCH ×2 (09:00→21:00)
[2022-02-14] MEDS: NICOTINE 21 MG/PAT TD SCH (09:00)
[2022-02-14] MEDS: INSULIN 70/30 100 UNITS/ML SQ SCH ×2 (09:16→21:32)
[2022-02-14] MEDS: INSULIN -REGULAR HUMAN 50 UNIT/0.5 ML ML SQ SCH ×4 (09:17→21:31)
[2022-02-14] MEDS: GLIMEPIRIDE 2 MG TABLET PO SCH ×2 (09:17→16:34)
[2022-02-14] MEDS: ASPIRIN 81 MG CHEWABLE TABLET PO SCH (09:17)
[2022-02-14] MEDS: MORPHINE 2 MG/ML SYR IV PRN (11:02)
[2022-02-14] MEDS: COLLAGENASE 30 GM OINTMENT TOP SCH (11:51)
[2022-02-14] MEDS: SODIUM HYPOCHLORITE 0.25% 473 ML TOP SCH ×2 (11:52→21:00)
--- NOTE | 2022-02-14 13:07 | P.PN ---
Subjective Date of Service: 02/14/22 Chief Complaint: Right foot diabetic ulcer. Patient has no new complain. Blood sugar readings have improved. Physical Examination - Vital Signs Temperature: 98.4 F Blood Pressure: 109/64 Pulse: 101 Respirations: 18 Pulse Ox (%): 95 Assessment And Plan - Current Problems (Diagnosis) (1) Diabetic ulcer of right foot Current Visit: No Status: Chronic (2) Osteomyelitis of foot Current Visit: Yes Status: Acute - Plan Physical Exam General: Alert, In no apparent distress. Respiratory: Clear to auscultation bilaterally, Normal air movement Cardiovascular: Regular rate/rhythm, Normal S1 S2 Gastrointestinal: Normal bowel sounds, Non-distended, No tenderness Musculoskeletal: Swelling, Tenderness Integumentary: Diabetic ulcer-right foot, slough on debridded wound Neurological: No focal motor deficit. Plan: Infectious disease is following. Continue current antibiotics. Deep tissue wound culture: Streptococcus MRI of the foot shows osteomyelitis. Patient slated for 6 weeks of IV antibiotics. He is unfunded. PICC line insertion for outpatient antibiotics. Pain management as needed. General surgery to follow and reassess wound. Wound care with [facility] recommended by infectious disease and surgery Social service consulted to assist with arrangement for outpatient antibiotics. Outpatient antibiotic choice per infectious disease. Aggressive blood sugar control. Continue home dose glyburide. Continue Novolin 70/30. Blood sugar readings have improved. Continue insulin sliding scale and Premeal insulin. Hemoglobin A1c is 10.3. Patient with anemia, normal MCV. Anemia of unknown etiology. Patient denies any melena or bloody stool. Continue to monitor and transfuse as needed for hemoglobin less than 7
[2022-02-15] MEDS: VANCOMYCIN 1.75 GM in NA CHLORIDE 0.9% 500 ML IVPB SCH ×2 (04:13→17:32)
[2022-02-15] MEDS: CEFEPIME 2 GM in NA CHLORIDE 0.9% 100 ML IV SCH ×3 (06:24→21:37)
[2022-02-15] MEDS: HYDROCODONE/APAP 5/325 MG TAB PO PRN ×2 (06:31→13:10)
[2022-02-15] MEDS: INSULIN -REGULAR HUMAN 50 UNIT/0.5 ML ML SQ SCH ×4 (07:30→21:00)
[2022-02-15] MEDS: INSULIN LISPRO 100 UNIT/1 ML SQ SCH ×3 (08:00→17:00)
[2022-02-15] MEDS: INSULIN 70/30 100 UNITS/ML SQ SCH ×2 (09:00→21:37)
[2022-02-15] MEDS: COLLAGENASE 30 GM OINTMENT TOP SCH (09:00)
[2022-02-15] MEDS: SODIUM HYPOCHLORITE 0.25% 473 ML TOP SCH ×2 (09:00→21:00)
[2022-02-15] MEDS: AMINO ACIDS/PROTEIN HYDROLYS 30 ML LIQUID.PKT PO SCH ×2 (09:00→21:00)
[2022-02-15] MEDS: NICOTINE 21 MG/PAT TD SCH (09:00)
[2022-02-15] MEDS: MORPHINE 2 MG/ML SYR IV PRN ×2 (09:59→14:15)
[2022-02-15] MEDS: HEPARIN 5000 UNIT/ML 1 ML VIAL SQ SCH ×2 (10:02→21:00)
[2022-02-15] MEDS: GLIMEPIRIDE 2 MG TABLET PO SCH ×2 (10:02→17:32)
[2022-02-15] MEDS: ASPIRIN 81 MG CHEWABLE TABLET PO SCH (10:02)
--- NOTE | 2022-02-15 10:45 | P.PN ---
Subjective Date of Service: 02/15/22 Chief Complaint: Right foot diabetic ulcer. Patient has no new complain. Blood sugar readings have improved and below target. Physical Examination - Vital Signs Temperature: 97.8 F Blood Pressure: 125/83 Pulse: 96 Respirations: 14 Pulse Ox (%): 98 Assessment And Plan - Current Problems (Diagnosis) (1) Diabetic ulcer of right foot Current Visit: No Status: Chronic (2) Osteomyelitis of foot Current Visit: Yes Status: Acute (3) Anemia Current Visit: Yes Status: Acute - Plan Physical Exam General: Alert, In no apparent distress. Respiratory: Clear to auscultation bilaterally, Normal air movement Cardiovascular: Regular rate/rhythm, Normal S1 S2 Gastrointestinal: Normal bowel sounds, Non-distended, No tenderness Musculoskeletal: Swelling, Tenderness Integumentary: Diabetic ulcer-right foot, status postdebridement, dressing is soaked and malodorous. Neurological: No focal motor deficit. Plan: Infectious disease is following. Continue current antibiotics. Deep tissue wound culture: Streptococcus MRI of the foot shows osteomyelitis. Patient slated for 6 weeks of IV antibiotics. He is unfunded. PICC line insertion ordered for outpatient antibiotics. Pain management as needed. General surgery to follow and reassess wound. Dr. Nunez plan to reassess the wound today. Wound care with [facility] recommended by infectious disease and surgery Social service consulted to assist with arrangement for outpatient antibiotics. Outpatient antibiotic choice per infectious disease. Aggressive blood sugar control. Continue home dose glyburide. Continue Novolin 70/30. Blood sugar readings are below target today. Continue insulin sliding scale and Premeal insulin. Hemoglobin A1c is 10.3. Patient with anemia, normal MCV. Anemia of unknown etiology. Patient denies any melena or bloody stool. Documented blood loss during debridement less than 20 ml. Continue to monitor and transfuse as needed for hemoglobin less than 7.
--- NOTE | 2022-02-15 15:58 | PN ---
Subjective: The patient is lying in bed. Continued to have severe pain in his right foot, getting p ain management with ibuprofen with morphine and [place]. Objective: Vital Signs: Stable. Lungs: Clear to auscultation. Heart: S1, S2. Regular. Abdomen: Soft. Bowel sounds present. Extremity: Right leg with 1+ edema. Wound noted. Laboratory Data: Shows WBC 10.9, hemoglobin 7.7, platelets 408. Chemistry shows BUN of 15, creatini ne 1.04 with blood sugars 130. The patient is growing Enterococcus faecalis from the wound, sensitiv e to ampicillin. Assessment And Plan: Diabetic foot ulcer with osteomyelitis. We will recommend to switch the patien t from vancomycin and cefepime to ampicillin IV for total of 6 weeks. Recommend to apply Medihoney t o the diabetic foot ulcer and the bottom ulcer, apply Betadine and keep leg elevated when possible. Follow up with the surgical team for wound management. Continue supportive care and wound care. If wound is clean, recommend to get wound VAC if possible. NF/MODL Voice ID: [id number] Report ID: [id number]
--- NOTE | 2022-02-15 16:12 | PN ---
Date of Progress Note: 02/15/2022 Reason For Service: Cellulitis, necrotic diabetic ulcers in the right foot and left foot. Subjective: The patient is doing well. He still has tenderness over that area, receiving wound care and also antibiotics as per ID. Objective: Chest: Clear. Abdomen: Soft and depressible. Extremities: The area of the open wound on the dorsum; it is improving and tendons are still moist a nd not dry. There is an area between the fourth and third toe that still needs to be packed. It is one of the initial wounds that the patient has and we explained that to the nursing staff. Plan: From our surgical standpoint, if he is still here in the next 24-48 hours, we may consider him doing a debridement, some areas are delineating in the next 24-48 hours and then proceed accordingly with wound care for the next few months. ANILA/JAYNA Voice ID: [id number] Report ID: [id number]
--- NOTE | 2022-02-15 18:42 | RAD REPORT ---
EXAM DESCRIPTION: RAD - Chest Single View - 02/15/2022 6:12 pm CLINICAL HISTORY: Device placement PICC line placement IMPRESSION: PICC line with its tip in the superior vena cava / atrium junction
--- NOTE | 2022-02-15 21:36 | P.PN ---
Date of Service: 02/16/22 Subjective: no acute events overnight only allowing dressing changes daily continues with pain medication no new/worsening symptoms Feels swelling has improved slightly, but still swollen ROS: A complete review of systems was performed and is negative except as mentioned above Physical Exam: Gen: NAD, AOx3 HEENT: normal conjunctiva, sclera anicteric CV: regular rate & rhythm, 1-2+ edema of RLE Pulm: non-labored respirations, clear bilaterally Abd: soft, non-tender, non-distended Skin: large ulcer s/p I&D on lateral aspect of R foot, dark callus on vental aspect of 2nd-3rd MTP Neuro: normal speech, normal affect, moves all extremities vitals reviewed Problem List Diabetic ulcer of R foot, with osteomyelitis Anemia Deep tissue wound culture: enterococcus ID consulted IV Antibiotics per ID ID recommending 6 weeks of IV Antibiotics will be difficult to set up as patient is unfunded / without insurance concerned patient may not heal and may require amputation arterial dopplers ordered PICC placed 02/15 sensitivities reviewed, ID recommends [facility] General surgery - Dr. Nunez consulted, s/p I&D to re-eval 02/17 in [place] financial services technician/Case management consulted to assist with arrangement of outpatient antibiotics aggressive blood glucose control HgbA1c: 10.3 Anemia of unknown etiology pt denies melena or bloody stool; no obvious source of bleed continue to monitor closely transfuse if needed for hgb < 7.0 02/16: hgb down to 6.9, suspect some bone marrow suppression from infection, diabetes likely iron deficiency as well workup ordered transfuse 1u PRBC - 02/16 VTE: hep SQ Code: full Dispo: home, ~2 days Time Spent Managing Pts Care (In Minutes): 35
[2022-02-16] MEDS: HYDROCODONE/APAP 5/325 MG TAB PO PRN ×3 (00:01→20:48)
[2022-02-16] MEDS: VANCOMYCIN 1.75 GM in NA CHLORIDE 0.9% 500 ML IVPB SCH ×2 (04:11→16:40)
[2022-02-16 06:16] LABS: Absolute Lymphocytes (CBC) 1.8 K/uL (0.7-4.9); Lymphocytes % 21.4 % (15.3-44.8); MCV 92.2 fL (80-100); MPV 6.7 fL (7.6-11.3); RBC Red Blood Cell Count 2.28 M/uL (4.33-5.43)
[2022-02-16] MEDS ORDERED: NA CHLORIDE 0.9% 250 ML IV SCH (07:00)
[2022-02-16] MEDS: CEFEPIME 2 GM in NA CHLORIDE 0.9% 100 ML IV SCH ×3 (07:21→21:08)
[2022-02-16] MEDS: INSULIN -REGULAR HUMAN 50 UNIT/0.5 ML ML SQ SCH ×4 (07:30→20:49)
[2022-02-16] MEDS: INSULIN LISPRO 100 UNIT/1 ML SQ SCH ×3 (08:00→16:40)
[2022-02-16 08:09] LABS: RBC Red Blood Cell Count 2.29 M/uL (4.33-5.43)
[2022-02-16] MEDS: NICOTINE 21 MG/PAT TD SCH (08:38)
[2022-02-16] MEDS: HEPARIN 5000 UNIT/ML 1 ML VIAL SQ SCH ×2 (08:38→20:48)
[2022-02-16] MEDS: INSULIN 70/30 100 UNITS/ML SQ SCH ×2 (08:54→20:49)
[2022-02-16] MEDS: AMINO ACIDS/PROTEIN HYDROLYS 30 ML LIQUID.PKT PO SCH ×2 (08:54→20:50)
[2022-02-16] MEDS: ASPIRIN 81 MG CHEWABLE TABLET PO SCH (08:54)
[2022-02-16] MEDS: GLIMEPIRIDE 2 MG TABLET PO SCH ×2 (08:54→16:40)
[2022-02-16] MEDS: COLLAGENASE 30 GM OINTMENT TOP SCH (09:00)
[2022-02-16] MEDS: MORPHINE 2 MG/ML SYR IV PRN (13:28)
[2022-02-16] MEDS: SODIUM HYPOCHLORITE 0.25% 473 ML TOP SCH ×2 (13:28→20:50)
--- NOTE | 2022-02-16 14:46 | PN ---
Subjective: Patient lying in bed. No new acute event. Chart reviewed. Objective: Vital Signs: Temperature 98, pulse 92, respirations 14, blood pressure 130/84. Lungs: Basal crackles. Heart: S1, S2. Regular. Abdomen: Soft, nontender. Bowel sounds present. Extremity: Trace edema. Right foot wound with the foul odor, necrotic tissue noted at the bottom an d at the top of the bone. Laboratory Data: Shows WBC 8.5, hemoglobin 6.9, platelets are 370. Chemistry shows BUN of 15, creat inine 1. Assessment And Plan: Peripheral vascular disease and right lower extremity diabetic foot wound, stat us post debridement. Patient continued to have significant amount of necrotic tissue and foul odor. We will recommend to get arterial Doppler. Patient was also informed if circulation is not good and infection does not improve in few days, consider below-knee amputation. We will continue empiric an tibiotic and wound care. Keep leg elevated, when possible. Prognosis guarded. NF/MODL Voice ID: [id number] Report ID: [id number]
[2022-02-16 15:21] LABS: Hematocrit 24.4 % (39.6-49.0)
--- NOTE | 2022-02-16 17:29 | RAD REPORT ---
EXAM DESCRIPTION: US - Lower Extremity Artery Uni Ltd - 02/16/2022 5:21 pm CLINICAL HISTORY: circulation in rigtht lower extremity Leg pain, claudication. COMPARISON: No comparisons FINDINGS: Grayscale, color and power Doppler interrogation of the right lower extremity arterial sys tem was performed. Triphasic and biphasic waveforms are seen throughout the right lower extremity arterial system. No occlusion or significant flow abnormality evident. IMPRESSION: No significant right lower extremity arterial flow abnormality.
[2022-02-17] MEDS: VANCOMYCIN 1.75 GM in NA CHLORIDE 0.9% 500 ML IVPB SCH ×2 (03:46→16:13)
[2022-02-17 05:25] LABS: Absolute Lymphocytes (CBC) 1.8 K/uL (0.7-4.9); Hematocrit 24.5 % (39.6-49.0); Lymphocytes % 19.4 % (15.3-44.8); MCV 89.4 fL (80-100); MPV 6.5 fL (7.6-11.3); RBC Red Blood Cell Count 2.74 M/uL (4.33-5.43)
[2022-02-17] MEDS ORDERED: CEFEPIME 2 GM VIAL ONE (06:05)
[2022-02-17] MEDS ORDERED: NA CHLORIDE 0.9% 100 ML ONE (06:06)
[2022-02-17] MEDS: CEFEPIME 2 GM in NA CHLORIDE 0.9% 100 ML IV SCH ×3 (06:10→21:06)
[2022-02-17] MEDS: INSULIN -REGULAR HUMAN 50 UNIT/0.5 ML ML SQ SCH ×4 (07:30→21:07)
--- NOTE | 2022-02-17 07:43 | P.PN ---
Date of Service: 02/17/22 Subjective: no acute events overnight no worsening /new symptoms ROS: A complete review of systems was performed and is negative except as mentioned above Physical Exam: Gen: NAD, AOx3 HEENT: normal conjunctiva, sclera anicteric CV: regular rate & rhythm, 1-2+ edema of RLE Pulm: non-labored respirations, clear bilaterally Abd: soft, non-tender, non-distended Skin: large ulcer s/p I&D on lateral aspect of R foot, dark callus on ventral aspect of 2nd-3rd MTP Neuro: normal speech, normal affect, moves all extremities vitals reviewed Problem List Diabetic ulcer of R foot, with osteomyelitis Anemia, iron deficiency IDDM2 Deep tissue wound culture: enterococcus ID consulted ID recommending 6 weeks of IV Antibiotics - levaquin 750mg daily - sent to social work msw to set up for outpatient arterial dopplers with good flow PICC placed 02/15 sensitivities reviewed, ID recommends levaquin General surgery - Dr. Nunez consulted, s/p I&D to washout again today advisory services associate/Case management consulted to assist with arrangement of outpatient antibiotics aggressive blood glucose control HgbA1c: 10.3 Anemia of unknown etiology pt denies melena or bloody stool; no obvious source of bleed continue to monitor closely transfuse if needed for hgb < 7.0 02/16: hgb down to 6.9, suspect some bone marrow suppression from infection, diabetes workup notes iron deficiency, patient denies any prior history of anemia. brother had sickle cell trait, patient unsure, but believes he does not carry sickle cell trait sickle screen ordered transfused 1u PRBC - 02/16 iron supplementation, monitor for signs of overload if +sickle VTE: hep SQ Code: full Dispo: home, ~2 days need to set up outpatient antibiotics Time Spent Managing Pts Care (In Minutes): 35
[2022-02-17] MEDS: GLIMEPIRIDE 2 MG TABLET PO SCH ×2 (08:00→16:14)
[2022-02-17] MEDS: INSULIN LISPRO 100 UNIT/1 ML SQ SCH ×3 (08:00→16:14)
[2022-02-17] MEDS: MORPHINE 2 MG/ML SYR IV PRN (08:53)
[2022-02-17] MEDS: HEPARIN 5000 UNIT/ML 1 ML VIAL SQ SCH ×2 (09:00→21:00)
[2022-02-17] MEDS: AMINO ACIDS/PROTEIN HYDROLYS 30 ML LIQUID.PKT PO SCH ×2 (09:00→21:00)
[2022-02-17] MEDS: ASPIRIN 81 MG CHEWABLE TABLET PO SCH (09:00)
[2022-02-17] MEDS: NICOTINE 21 MG/PAT TD SCH (09:00)
[2022-02-17] MEDS: SODIUM HYPOCHLORITE 0.25% 473 ML TOP SCH ×2 (09:00→21:00)
[2022-02-17] MEDS: COLLAGENASE 30 GM OINTMENT TOP SCH (09:00)
[2022-02-17] MEDS: INSULIN 70/30 100 UNITS/ML SQ SCH ×2 (09:00→21:07)
[2022-02-17] MEDS ORDERED: NA CHLORIDE 0.9% 1,000 ML ONE (11:56)
--- NOTE | 2022-02-17 12:14 | P.PN ---
Subjective Date of Service: 02/17/22 Chief Complaint: Right foot diabetic ulcer. Subjective: No new changes, Tolerating diet, Ambulating Physical Examination - Vital Signs Temperature: 97.8 F Blood Pressure: 116/80 Pulse: 93 Respirations: 18 Pulse Ox (%): 99 - Physical Exam General: Oriented x3 HEENT: Atraumatic, Normocephalic Neck: Supple, JVD not distended Respiratory: Clear to auscultation bilaterally Cardiovascular: Normal S1 S2, Edema Gastrointestinal: Normal bowel sounds, Soft and benign, Non-distended Musculoskeletal: Swelling, Erythema Integumentary: Skin lesion, Tenderness/swelling, Diabetic ulcer Neurological: Normal speech, Normal tone, Cranial nerves 3-12 intact Lymphatics: No axilla or inguinal lymphadenopathy Assessment And Plan - Plan Peripheral vascular disease and right lower extremity diabetic foot wound, status post debridement. Patient continued to have significant amount of necrotic tissue and foul odor. Patient is going for [facility] Dopplar normal We will continue empiric antibiotic and wound care. Keep leg elevated, when possible. Prognosis guarded. Physician Review: Patient Assessed, Agree with Above Assessment and Plan
[2022-02-17] MEDS ORDERED: MIDAZOLAM HCL 2 MG/2 ML INJ ONE (13:02)
[2022-02-17] MEDS ORDERED: propofoL 200 MG/20 ML VIAL IV ONE (13:02)
[2022-02-17] MEDS ORDERED: FENTANYL CITR 100 MCG/2 ML ONE (13:02)
[2022-02-17] MEDS ORDERED: LIDOCAINE 2% MPF 5 ML VIAL ONE (13:03)
[2022-02-17] MEDS ORDERED: KETOROLAC 30 MG/ML INJ ONE (13:05)
--- NOTE | 2022-02-17 13:52 | P.BOP ---
Preoperative diagnosis: Necrotic infected diabetic R foot Postoperative diagnosis: same Primary procedure: 1. Excisional debridement subQ right foot ulcers 13x8cm Secondary procedure: 2. Pulse lavage Estimated blood loss: 10cc Findings: as above Complications: None Drain(s): Other (wet to dry) Transferred to: Recovery Room Condition: Good
[2022-02-17] MEDS: HYDROCODONE/APAP 5/325 MG TAB PO PRN (16:25)
--- NOTE | 2022-02-17 20:59 | OP ---
Date of Procedure: 02/17/2022 Surgeon: Jung Nunez MD Preoperative Diagnosis: Cellulitis and necrotic infected right diabetic foot ulcers. Postoperative Diagnosis: Cellulitis and necrotic infected right diabetic foot ulcers. Procedure: Excisional debridement subcu right foot ulcer, 13 x 8 cm with pulse lavage. Estimated Blood Loss: Less than 10 cc. Complications: None. Findings: Necrotic tissue. Some of the tendons are disintegrated and disappearing from the dorsum o f the foot. Some debris was removed from the area that include tendon, which is already broken and d isconnected. Indications: This is the case of a 41-year-old patient, who comes to us, was admitted to the [facility] emergently with necrotic foul-smelling wounds on the right foot. He has been on antibiotics for a long time. Still, the primary doctors and the Infectious Disease recommend once again debridement of that area, possible amputation. The patient does not want the amputation. He has some areas that a re delineated from last time that we need to do debridement. The benefits, alternatives, and risks w ere explained, which include, but not limited to infection, bleeding, damage to adjacent structures, anesthesia, complication, MN, and even . He also understands this may not relieve the symptoms. He might need more than one surgical intervention. He understood, signed a consent. Procedure In Detail: Patient was brought to the operating room, placed in supine position. Anesthes ia was given without complication. Right foot was prepped and draped in sterile fashion. Local anes thesia was applied, followed by a debridement with a sharp knife of the entire area, is about 13 x 8 cm. There were some devitalized, broken already in pieces tendons in that region, that was removed a lso with the specimen. Then, after that, we proceeded to do a pulse lavage with several liters of fl uid. The patient tolerated the procedure well. Hemostasis was obtained and the area was packed with wet-to-dry dressing. The patient was sent to recovery in stable condition. ANILA/JAYNA Voice ID: [id number] Report ID: [id number]
[2022-02-17 23:36] VITALS: O2SAT 98
[2022-02-18] MEDS: HYDROCODONE/APAP 5/325 MG TAB PO PRN ×2 (00:02→08:41)
[2022-02-18 03:27] LABS: Hematocrit 25.5 % (39.6-49.0); MCV 90.3 fL (80-100); MPV 6.5 fL (7.6-11.3); RBC Red Blood Cell Count 2.83 M/uL (4.33-5.43)
[2022-02-18 03:33] LABS: Potassium 4.3 mmol/L (3.5-5.1)
[2022-02-18] MEDS: VANCOMYCIN 1.75 GM in NA CHLORIDE 0.9% 500 ML IVPB SCH (04:08)
[2022-02-18] MEDS ORDERED: CEFEPIME 2 GM VIAL ONE ×2 (05:52→12:16)
[2022-02-18] MEDS ORDERED: NA CHLORIDE 0.9% 100 ML ONE ×2 (05:54→12:16)
[2022-02-18] MEDS: CEFEPIME 2 GM in NA CHLORIDE 0.9% 100 ML IV SCH ×2 (06:24→13:13)
--- NOTE | 2022-02-18 06:30 | P.PN ---
Date of Service: 02/18/22 Subjective: ROS: A complete review of systems was performed and is negative except as mentioned above Physical Exam: Gen: NAD, AOx3 HEENT: normal conjunctiva, sclera anicteric CV: regular rate & rhythm, 1-2+ edema of RLE Pulm: non-labored respirations, clear bilaterally Abd: soft, non-tender, non-distended Skin: large ulcer s/p I&D on lateral aspect of R foot, dark callus on ventral aspect of 2nd-3rd MTP Neuro: normal speech, normal affect, moves all extremities vitals reviewed Problem List Diabetic ulcer of R foot, with osteomyelitis Anemia, iron deficiency IDDM2 Deep tissue wound culture: enterococcus ID consulted ID recommending 6 weeks of IV Antibiotics - levaquin 750mg daily - sent to geriatric social work professor to set up for outpatient arterial dopplers with good flow PICC placed 02/15 sensitivities reviewed, ID recommends levaquin General surgery - Dr. Nunez consulted, s/p I&D to washout again today director of therapy services/Case management consulted to assist with arrangement of outpatie nt antibiotics aggressive blood glucose control HgbA1c: 10.3 Anemia of unknown etiology pt denies melena or bloody stool; no obvious source of bleed continue to monitor closely transfuse if needed for hgb < 7.0 02/16: hgb down to 6.9, suspect some bone marrow suppression from infection, diabetes workup notes iron deficiency, patient denies any prior history of anemia. brother had sickle cell trait, patient unsure, but believes he does not carry sickle cell trait sickle screen ordered transfused 1u PRBC - 02/16 iron supplementation, monitor for signs of overload if +sickle VTE: hep SQ Code: full Dispo: home, ~2 days need to set up outpatient antibiotics Time Spent Managing Pts Care (In Minutes): 35
[2022-02-18] MEDS: INSULIN LISPRO 100 UNIT/1 ML SQ SCH ×2 (08:00→12:09)
[2022-02-18] MEDS: GLIMEPIRIDE 2 MG TABLET PO SCH (08:37)
[2022-02-18] MEDS: ASPIRIN 81 MG CHEWABLE TABLET PO SCH (08:37)
[2022-02-18] MEDS: HEPARIN 5000 UNIT/ML 1 ML VIAL SQ SCH (08:42)
[2022-02-18] MEDS: SODIUM HYPOCHLORITE 0.25% 473 ML TOP SCH (08:43)
[2022-02-18] MEDS: NICOTINE 21 MG/PAT TD SCH (08:43)
[2022-02-18] MEDS: COLLAGENASE 30 GM OINTMENT TOP SCH (08:44)
[2022-02-18] MEDS: INSULIN -REGULAR HUMAN 50 UNIT/0.5 ML ML SQ SCH ×2 (08:45→11:30)
[2022-02-18] MEDS: INSULIN 70/30 100 UNITS/ML SQ SCH (08:46)
[2022-02-18] MEDS: AMINO ACIDS/PROTEIN HYDROLYS 30 ML LIQUID.PKT PO SCH (08:46)
[2022-02-18 12:38] VITALS: BP 123/72; TEMP 97.9
--- NOTE | 2022-02-18 13:06 | P.DS ---
Admission Date: 02/09/22 Discharge Date: 02/18/22 Disposition: ROUTINE DISCHARGE Discharge Condition: GOOD Reason for Admission: Right foot diabetic ulcer. Consultations: General Surgery - Dr. Nunez ID - Dr. Viera Brief History of Present Illness: 41yo M, PMH: DM2, nicotine dependence Presents with right foot diabatic ulcer. Patient reported that he has been following up with a wound care clinic for his diabetic foot ulcer on his right foot for the past 2 months. Patient reported that he was prescribed antibiotics by the wound care doctor and a couple of days patient developed a blister on top of his right foot. Patient indicated that blister became enlarged and turned into a wound. Patient also reports drainage and odor from both wounds-- on top of his foot and below his foot. Patient also reports pain, redness and swelling to his right foot. Patient rated pain as 5/10 in severity and described pain as throbbing in quality. Patient denies any other signs or symptoms. Symptoms are aggravated by weight bearing and relieved by nothing. Patient reported that he followed up with his wound care clinic today and was instructed to go to the ER for further management. Hospital Course: Problem List Diabetic ulcer of R foot, with osteomyelitis Anemia, iron deficiency Insulin dependent DM2 Patient presented with R foot ulceration, with osteomyelitis. Dr. Nunez performed incision/debridement x2. ID - Dr. Viera, was consulted and recommend 6 weeks of IV antibiotics. A PICC line was placed, and patient discharged to complete 6 weeks of IV levaquin. Arterial doppler of his right leg displayed good arterial flow. End date: 03/30/22 He was noted to be anemic in the 7-8s, workup consistent with iron deficiency anemia. Patient has family history of sickle cell trait, but stated he has been tested and was told it was negative with some slight uncertainty. For this reason, sickle cell screen was ordered. Discussed avoidance of iron overload in patients with sickle cell disease / trait, but if he does not have sickle cell, the appropriate treatment would be to start a daily iron supplementation. Follow up with PCP and repeat iron studies in a 2-3 months. He did receive 1unit pRBCs for a hgb of 6.9, responded appropriately and was stable. Follow up with Dr. Nunez this coming Tuesday in wound care clinic. Continue dressing changes as instructed. Hgb A1c: 10.3, patient was started on insulin 70/30 20 units twice daily with improvement of blood glucose levels. Prescribed the same on discharge. He is to monitor his blood glucose levels, take readings to PCP in ~1 week, and continue to follow up for further adjustments as necessary. Repeat CBC and BMP in ~1 week. Vital Signs/Physical Exam: Temp Pulse Resp BP Pulse Ox 97.9 F 93 H 19 123/72 99 02/18/22 12:00 02/18/22 12:00 02/18/22 12:00 02/18/22 12:00 02/18/22 12:00 Physical Exam: Gen: NAD, AOx3 HEENT: normal conjunctiva, sclera anicteric CV: regular rate & rhythm, 1+ edema of RLE Pulm: non-labored respirations, clear bilaterally Abd: soft, non-tender, non-distended Skin: large ulcer s/p I&D on lateral aspect of R foot, dark callus on ventral aspect of 2nd-3rd MTP Neuro: normal speech, normal affect, moves all extremities Laboratory Data at Discharge: WBC 8.70 K/uL (4.3-10.9) 02/18/22 03:10 Hgb 8.6 g/dL (13.6-17.9) L 02/18/22 03:10 Hct 25.5 % (39.6-49.0) L 02/18/22 03:10 Plt Count 339 K/uL (152-406) 02/18/22 03:10 PT 12.2 SECONDS (9.5-12.5) 02/10/22 04:39 INR 1.11 02/10/22 04:39 APTT 33.3 SECONDS (24.3-36.9) 02/09/22 12:45 Sodium 137 mmol/L (136-145) 02/18/22 03:10 Potassium 4.3 mmol/L (3.5-5.1) 02/18/22 03:10 BUN 17 mg/dL (7-18) 02/18/22 03:10 Creatinine 1.03 mg/dL (0.70-1.30) 02/18/22 03:10 Glucose 266 mg/dL (74-106) H 02/18/22 03:10 Phosphorus 3.6 mg/dL (2.5-4.9) 02/09/22 12:45 Magnesium 2.6 mg/dL (1.6-2.4) H 02/09/22 12:45 Total Bilirubin 0.9 mg/dL (0.2-1.0) 02/09/22 12:45 AST 4 U/L (15-37) L 02/09/22 12:45 ALT < 10 U/L (16-61) L 02/09/22 12:45 Alkaline Phosphatase 94 U/L (45-117) 02/09/22 12:45 Home Medications: Glyburide 4 Mg 4 mg PO BID 02/09/22 Collagenase [Santyl Ointment*] 1 appl TOP DAILY 14 Days #1 tube 02/18/22 Hydrocodone 5/APAP 325 [[place] 5/325] 1 tab PO Q8H PRN #20 tab 02/18/22 Insulin 70/30 NPH/Reg Human [Novolin 70/30*] 20 unit SQ BID 30 Days #12 ml 02/18/22 New Medications: Hydrocodone 5/APAP 325 [[place] 5/325] 1 tab PO Q8H PRN #20 tab PRN Reason: Pain Insulin 70/30 NPH/Reg Human [Novolin 70/30*] 20 unit SQ BID 30 Days #12 ml Collagenase [Santyl Ointment*] 1 appl TOP DAILY 14 Days #1 tube Physician Discharge Instructions: Problem List Diabetic ulcer of R foot, with osteomyelitis Anemia, iron deficiency Insulin dependent DM2 Patient presented with R foot ulceration, with osteomyelitis. Dr. Nunez performed incision/debridement x2. ID - Dr. Viera, was consulted and recommend 6 weeks of IV antibiotics. A PICC line was placed, and patient discharged to complete 6 weeks of IV levaquin. Arterial doppler of his right leg displayed good arterial flow. End date: 03/30/22 He was noted to be anemic in the 7-8s, workup consistent with iron deficiency anemia. Patient has family history of sickle cell trait, but stated he has been tested and was told it was negative with some slight uncertainty. For this reason, sickle cell screen was ordered. Discussed avoidance of iron overload in patients with sickle cell disease / trait, but if he does not have sickle cell, the appropriate treatment would be to start a daily iron supplementation. Follow up with PCP and repeat iron studies in a 2-3 months. He did receive 1unit pRBCs for a hgb of 6.9, responded appropriately and was stable. Follow up with Dr. Nunez this coming Tuesday in wound care clinic. Continue dressing changes as instructed. Hgb A1c: 10.3, patient was started on insulin 70/30 20 units twice daily with improvement of blood glucose levels. Prescribed the same on discharge. He is to monitor his blood glucose levels, take readings to PCP in ~1 week, and continue to follow up for further adjustments as necessary. Repeat CBC and BMP in ~1 week. Followup: Edgar Moore MD [Primary Care Provider] - Time spent managing pt's care (in minutes): 45
== END 2022-02-18 14:28 | disposition home or self-care (01) | DRG 854 ==
LOC: ER 11:23 → ERHOLD 12:45 → 2ND 19:18
PROVIDERS: ADMIT Nurse Practitioner Family; ATTEND Hospitalist
PROC: 0JBQ0ZZ Excision of Right Foot Subcutaneous Tissue and Fascia, Open Approach (ICD-10-PCS; 2022-02-08)
PROC: 0JDQ0ZZ Extraction of Right Foot Subcutaneous Tissue and Fascia, Open Approach (ICD-10-PCS; 2022-02-08)
PROC: 02HV33Z Insertion of Infusion Device into Superior Vena Cava, Percutaneous Approach (ICD-10-PCS; 2022-02-15)
PROC: 30233N1 Transfusion of Nonautologous Red Blood Cells into Peripheral Vein, Percutaneous Approach (ICD-10-PCS; 2022-02-16)
PROC: 0JDQ0ZZ Extraction of Right Foot Subcutaneous Tissue and Fascia, Open Approach (ICD-10-PCS; 2022-02-17)
PROC: 0JBQ0ZZ Excision of Right Foot Subcutaneous Tissue and Fascia, Open Approach (ICD-10-PCS; principal; 2022-02-17 13:30)
DX: A41.81 Sepsis due to Enterococcus (principal); E11.52 Type 2 diabetes mellitus with diabetic peripheral angiopathy with gangrene; L03.115 Cellulitis of right lower limb; E87.1 Hypo-osmolality and hyponatremia; M86.171 Other acute osteomyelitis, right ankle and foot; E11.69 Type 2 diabetes mellitus with other specified complication; E11.65 Type 2 diabetes mellitus with hyperglycemia; E11.621 Type 2 diabetes mellitus with foot ulcer; L97.519 Non-pressure chronic ulcer of other part of right foot with unspecified severity; E11.22 Type 2 diabetes mellitus with diabetic chronic kidney disease; N18.2 Chronic kidney disease, stage 2 (mild); D63.1 Anemia in chronic kidney disease; D50.9 Iron deficiency anemia, unspecified; D63.8 Anemia in other chronic diseases classified elsewhere; F17.210 Nicotine dependence, cigarettes, uncomplicated; Z79.4 Long term (current) use of insulin; Z79.84 Long term (current) use of oral hypoglycemic drugs; Z20.822 Contact with and (suspected) exposure to COVID-19
CPT/HCPCS: 36415; 36430; 71045; 80048; 80053; 80202; 81001; 82550; 82565; 82607; 82947; 83036; 83540; 83605; 83735; 83880; 84100; 84466; 85014; 85018; 85025; 85027; 85044; 85610; 85660; 85730; 86850; 86900; 86901; 87040; 87070; 87075; 87077; 87186; 87205; 87811; 88304; 93005; 93926; 97116; 97161; 99284; J0692; J0744; J1644; J1815; J2001; J2250; J2270; J2405; J2704; J3010; J3370; J3590; J7030; J7040; J7050; P9016

== ENCOUNTER 2023-09-18 15:05 | Inpatient (IN) | payer SELFPAY ==
[2023-09-18 15:53] LABS: Absolute Lymphocytes (CBC) 0.6 K/uL (0.7-4.9); Absolute Monocytes 1.1 K/uL (0.1-1.3); Absolute Neutrophil 11.8 K/uL (1.8-8.0); Basophils % 0.2 % (0-1.3); Hematocrit 23.6 % (39.6-49.0); Hemoglobin 8.1 g/dL (13.6-17.9); Lymphocytes % 4.3 % (15.3-44.8); MCH 30.5 pg (27.0-35.0); MCHC 34.1 g/dL (32.0-36.0); MCV 89.3 fL (80-100); MPV 8.3 fL (7.6-11.3); Monocytes % 8.1 % (3.3-12.3); Neutrophils % 87.4 % (41.7-73.7); Platelets 157 thou/uL (152-406); RBC Red Blood Cell Count 2.64 M/uL (4.33-5.43); Red Cell Distribution Width 14.8 % (12.1-15.2)
[2023-09-18 16:04] LABS: Albumin 2.1 g/dL (3.4-5.0); Albumin/Globulin Ratio 0.4 (1.1-1.8); Anion Gap 13.1 mEq/L (5.0-15.0); Bilirubin Total 1.1 mg/dL (0.2-1.0); Globulin 4.7 g/dL (2.3-3.5); Potassium 4.1 mEq/L (3.5-5.1); Protein, Total 6.8 g/dL (6.4-8.2)
--- NOTE | 2023-09-18 16:13 | RAD REPORT ---
EXAM DESCRIPTION: RAD - Foot Left 3 View - 09/18/2023 3:41 pm CLINICAL HISTORY: r/o osteomyelitis COMPARISON: No comparisons FINDINGS/IMPRESSION: Soft tissue gas present along the medial aspect of the foot. The subcutaneous g as extends up to the ankle. There is a remote fracture at the base of the fifth metatarsal. A soft ti ssue wound extends up to the fifth metatarsal where there is underlying cortical irregularity. This c ould be related to prior trauma. Cannot exclude underlying osteomyelitis at the base of the fifth met atarsal, however. Gas within the soft tissues could reflect gas-forming infection. Recommend clinical correlation.
[2023-09-18 16:17] LABS: PT Prothrombin Time 15.7 SECONDS (9.4-12.5); PTT, Activated Partial Thromb 32.1 SECONDS (24.3-36.9); Protime INR 1.42
--- NOTE | 2023-09-18 16:34 | RAD REPORT ---
EXAM DESCRIPTION: US - Lower Extremity Artery Uni Ltd - 09/18/2023 3:59 pm CLINICAL HISTORY: PAIN COMPARISON: Lower Extremity Artery Uni Ltd dated 02/16/2022 FINDINGS: Color Doppler, grayscale, and spectral analysis was performed. Multiphasic flow present within the common femoral artery, superficial femoral artery, and popliteal artery. Monophasic flow is present within the posterior tibial artery and dorsalis pedis arteries. IMPRESSION: Monophasic flow in the dorsalis pedis and posterior tibial arteries likely reflecting mo derate to severe stenoses. The more proximal vessels have multiphasic waveforms.
--- NOTE | 2023-09-18 16:43 | EDPHYS ---
Physician Documentation [facility] Name: Kishor Grajeda Age: 43 yrs Sex: Male : 1980 Arrival Date: 09/18/2023 Time: 15:05 Bed 4 Private MD: ED Physician Piper Bennett HPI: 09/17 15:17 This 43 yrs old Black Male presents to ER via Ambulatory with complaints of Wound on jh7 left foot. 15:17 43-year-old male with a past medical history of diabetes presents to the ER complaining jh7 of diabetic foot ulcer infection on the left foot. He states that he has been seeing podiatry and wound care for an ulcer present on the plantar aspect of the left foot, but reports that since he is gone back to work the wound has opened up and began draining foul liquid. Denies fever.. Historical: - Allergies: 15:19 No Known Allergies; tl4 - Home Meds: 15:19 Glimepiride Oral 4 mg twice a day [Active]; tl4 - PMHx: 15:19 diabetes mellitus; tl4 - PSHx: 15:19 None; tl4 - Immunization history:: Adult Immunizations unknown. - Infectious Disease History:: Denies. - Social history:: Smoking status: Patient denies any tobacco usage or history of. ROS: 15:17 Constitutional: Per HPI jh7 Exam: 15:17 Constitutional: This is a well developed, well nourished patient who is awake, alert, jh7 and in no acute distress. Head/Face: Normocephalic, atraumatic. Neck: Trachea midline, no thyromegaly or masses palpated, and no cervical lymphadenopathy. Supple, full range of motion without nuchal rigidity, or vertebral point tenderness. No Meningismus. Cardiovascular: Regular rate and rhythm with a normal S1 and S2. No gallops, murmurs, or rubs. Normal PMI, no JVD. No pulse deficits. Respiratory: Lungs have equal breath sounds bilaterally, clear to auscultation and percussion. No rales, rhonchi or wheezes noted. No increased work of breathing, no retractions or nasal flaring. Back: No spinal tenderness. No costovertebral tenderness. Full range of motion. Neuro: Awake and alert, GCS 15, oriented to person, place, time, and situation. Motor strength 5/5 in all extremities. Normal gait. 15:17 Musculoskeletal/extremity: ROM: full active range of motion, the left foot decreased sensation, 15:17 Skin: Large open diabetic foot ulcer located on the plantar aspect of the left foot with foul purulent drainage draining from the center of the wound.. Vital Signs: 15:17 BP 110 / 62; Pulse 92; Resp 16; Temp 99(O); Pulse Ox 99% on R/A; Weight 81.65 kg; tl4 Height 6 ft. 0 in. ; Pain 0/10; 17:17 BP 141 / 85; Pulse 90; Resp 18; Pulse Ox 100% on R/A; mb9 19:00 BP 124 / 78; Pulse 93; Resp 18; Pulse Ox 100% on R/A; MAP 91 mmHg; Pain 0/10; tm6 15:17 Body Mass Index 24.41 (81.65 kg, 182.88 cm) tl4 15:17 Pain Scale: Adult tl4 19:00 Pain Scale: Adult tm6 MDM: 15:13 Patient medically screened. 7 16:40 Differential diagnosis: Osteomyelitis, cellulitis, diabetic foot ulcer, acute arterial jh7 occlusion. Data reviewed: vital signs, nurses notes, lab test result(s), radiologic studies, plain films, ultrasound. Consideration of Admission/Observation Patient was admitted/placed on observation. Management of patient was discussed with the following: Hospitalist: Cristobal Machuca, LINUX ENGINEER for Dr. Arenas. Nail Technician Teacher: Dr. Sandhu, General Surgery. I considered the following discharge prescriptions or medication management in the emergency department Medications were administered in the Emergency Department. See MAR. Independent interpretation of the following test(s) in the Emergency Department EKG: See my EKG interpretation above. Care significantly affected by the following chronic conditions: Diabetes. Care significantly affected by the following Social Determinants of Health: Poor access to healthcare and/or lack of insurance. Counseling: I had a detailed discussion with the patient and/or guardian regarding the historical points, exam findings, and any diagnostic results supporting the discharge/admit diagnosis, the need for further work-up and treatment in the hospital. 09/17 15:29 Order name: Blood Culture Adult (2) [facility] 09/17 15:29 Order name: CBC with Diff [facility] 09/17 15:29 Order name: CMP; Complete Time: 16:15 [facility] 09/17 15:29 Order name: Lactate w/ 2H reflex if indic.; Complete Time: 16:15 [facility] 09/17 15:29 Order name: Protime (+inr); Complete Time: 16:19 [facility] 09/17 15:29 Order name: Ptt, Activated; Complete Time: 16:19 [facility] 09/17 15:57 Order name: CBC Smear Scan [facility] 09/17 18:20 Order name: Glucose, Ancillary Testing [facility] 09/17 15:29 Order name: XRAY Foot LEFT 3 View; Complete Time: 16:15 [facility] 09/17 15:37 Order name: LE [employer]; Complete Time: 16:36 [facility] 09/17 20:12 Order name: [facility] 09/17 15:29 Order name: Accucheck; Complete Time: 15:43 [facility] 09/17 15:29 Order name: Cardiac monitoring; Complete Time: 15:39 [facility] 09/17 15:29 Order name: IV Saline Lock - Large Bore; Complete Time: 15:43 [facility] 09/17 15:29 Order name: Labs collected and sent; Complete Time: 15:43 [facility] 09/17 15:29 Order name: O2 Per Protocol; Complete Time: 15:39 [facility] 09/17 15:29 Order name: O2 Sat Monitoring; Complete Time: 15:39 [facility] 09/17 15:29 Order name: Vital Signs; Complete Time: 15:39 [facility] 09/17 15:57 Order name: EKG - Nurse/Tech; Complete Time: 16:07 [facility] EC:49 Rate is 90 beats/min. Rhythm is regular. QRS Parker is Normal. NV interval is normal at 7 132 msec. QRS interval is normal at 90 msec. QT interval is prolonged at 398 msec. No Q waves. T waves are Inverted in lead III. Clinical impression: NSR w/ Non-specific ST/T Changes. Administered Medications: 16:54 Drug: NS 0.9% IV 1000 ml IV at 1 bolus Per protocol; 1000 mL bolus Route: IV; Rate: 1 mb9 bolus; Site: left antecubital; 17:39 Follow up: Response: No adverse reaction; IV Status: Completed infusion mb9 16:54 Drug: Cefepime IVPB 1 grams IVPB at 200 ml/hr once over 30 mins; (mix in NS 100 mL) mb9 Route: IVPB; Rate: 200 ml/hr; Infused Over: 30 mins; Site: left antecubital; 17:39 Follow up: IV Status: Completed infusion mb9 17:38 Drug: vancoMYCIN IVPB 1 grams IVPB once over 2 hrs Route: IVPB; Infused Over: 2 hrs; mb9 Site: left antecubital; 20:29 Follow up: Response: No adverse reaction; IV Status: Completed infusion mb9 Disposition Summary: 09/18/23 16:42 Hospitalization Ordered Notes: Hospitalization Status: Inpatient Admission [facility] Provider: Jayro Arenas [facility] Location: Telemetry/MedSurg (Inpatient) [facility] Condition: Stable [facility] Problem: an ongoing problem [facility] Symptoms: have worsened [facility] Bed/Room Type: Standard [facility] Room Assignment: 219(09/18/23 21:23) jb4 Diagnosis - Osteomyelitis, unspecified [facility] - Type 2 diabetes mellitus with foot ulcer [facility] - Acute kidney failure, unspecified [facility] Forms: - Medication Reconciliation Form [facility] - SBAR form [facility] - Leadership Thank You Letter [facility] Signatures: Dispatcher [employer] EDMS Cristobal Machuca, HOT POND OPERATOR-C HOT POND OPERATOR-Cla1 Jameel Do RN RN jb4 Angela [place] FNP HOT POND OPERATOR 7 Kaitlyn Lujan RN RN mb9 Sloan Hobbs RN RN tl4 Corrections: (The following items were deleted from the chart) 15:30 15:30 Foot Left 3 View+RAD.RAD.BRZ ordered. EDMS EDMS 15:38 15:38 Lower Extremity [employer]+US.RAD.BRZ ordered. EDMS EDMS 21:23 16:42 [facility] jb4
--- NOTE | 2023-09-18 16:43 | ER ---
Nurse's Notes [facility] Name: Kishor Grajeda Age: 43 yrs Sex: Male : 1980 Arrival Date: 09/18/2023 Time: 15:05 Bed 4 Private MD: Diagnosis: Osteomyelitis, unspecified;Type 2 diabetes mellitus with foot ulcer;Acute kidney failure, unspecified Presentation: 09/17 15:17 Chief complaint: Patient states: Pt c/o open wound to lateral left foot 'for a while' tl4 and states it is getting worse. Pt states wound has a foul odor. Pt denies pain, fever/chills. Coronavirus screen: At this time, the client does not indicate any symptoms associated with coronavirus-19. Ebola Screen: No symptoms or risks identified at this time. Initial Sepsis Screen: Does the patient meet any 2 criteria? No. Patient's initial sepsis screen is negative. Does the patient have a suspected source of infection? No. Patient's initial sepsis screen is negative. Risk Assessment: Do you want to hurt yourself or someone else? Patient reports no desire to harm self or others. Onset of symptoms is unknown. 15:17 Method Of Arrival: Ambulatory tl4 15:17 Acuity: RODRÍGUEZ 3 tl4 Triage Assessment: 15:20 General: Appears in no apparent distress. Behavior is calm, cooperative. Pain: Denies tl4 pain. EENT: No signs and/or symptoms were reported regarding the EENT system. Neuro: Level of Consciousness is awake, alert, obeys commands, Oriented to person, place, time, situation, Moves all extremities. Speech is normal. Cardiovascular: Capillary refill < 3 seconds Patient's skin is warm and dry. Respiratory: Airway is patent Respiratory effort is even, unlabored, Respiratory pattern is regular, symmetrical. GI: No signs and/or symptoms were reported involving the gastrointestinal system. : No signs and/or symptoms were reported regarding the genitourinary system. Derm: Reports open wound to lateral left foot. Musculoskeletal: No signs and/or symptoms reported regarding the musculoskeletal system. Historical: - Allergies: 15:19 No Known Allergies; tl4 - Home Meds: 15:19 Glimepiride Oral 4 mg twice a day [Active]; tl4 - PMHx: 15:19 diabetes mellitus; tl4 - PSHx: 15:19 None; tl4 - Immunization history:: Adult Immunizations unknown. - Infectious Disease History:: Denies. - Social history:: Smoking status: Patient denies any tobacco usage or history of. Screenin:23 [facility] ED Fall Risk Assessment (Adult) History of falling in the last 3 months, mb9 including since admission No falls in past 3 months (0 pts) Confusion or Disorientation No (0 pts) Intoxicated or Sedated No (0 pts) Impaired Gait No (0 pts) Mobility Assist Device Used No (0 pt) Altered Elimination No (0 pt) Score/Fall Risk Level 0 - 2 = Low Risk Oriented to surroundings, Maintained a safe environment, Educated pt \T\ family on fall prevention, incl call for assistance when getting out of bed. Abuse screen: Denies threats or abuse. Nutritional screening: No deficits noted. Tuberculosis screening: No symptoms or risk factors identified. Assessment: 15:41 General: Appears in no apparent distress. Behavior is calm, cooperative. Pain: Denies mb9 pain. Neuro: [place] Agitation-Sedation Scale (RASS): 0 - Alert and Calm Level of Consciousness is awake, alert, obeys commands, Oriented to person, place, time, situation, Appropriate for age. Cardiovascular: Patient's skin is warm and dry. Respiratory: Airway is patent Respiratory effort is even, unlabored, Respiratory pattern is regular, symmetrical. GI: No signs and/or symptoms were reported involving the gastrointestinal system. : No signs and/or symptoms were reported regarding the genitourinary system. EENT: No signs and/or symptoms were reported regarding the EENT system. Derm: Wound noted left foot Wound is purulent drainage and odor noted. Wound is macerated. Musculoskeletal: Range of motion: intact in all extremities. 17:17 Reassessment: No changes from previously documented assessment. Patient and/or family mb9 updated on plan of care and expected duration. Pain level reassessed. Patient is alert, oriented x 3, equal unlabored respirations, skin warm/dry/pink. 18:00 Reassessment: see [facility] for further charting. mb9 21:47 Reassessment: report faxed to [facility], confirmed by Piper CARRASCO. tm6 Vital Signs: 15:17 BP 110 / 62; Pulse 92; Resp 16; Temp 99(O); Pulse Ox 99% on R/A; Weight 81.65 kg; tl4 Height 6 ft. 0 in. ; Pain 0/10; 17:17 BP 141 / 85; Pulse 90; Resp 18; Pulse Ox 100% on R/A; mb9 19:00 BP 124 / 78; Pulse 93; Resp 18; Pulse Ox 100% on R/A; MAP 91 mmHg; Pain 0/10; tm6 15:17 Body Mass Index 24.41 (81.65 kg, 182.88 cm) tl4 15:17 Pain Scale: Adult tl4 19:00 Pain Scale: Adult tm6 ED Course: 15:08 Patient arrived in ED. im 15:13 Angela [place] FNP [facility] jh7 15:13 Piper Bennett MD is Attending Physician. jh7 15:19 Triage completed. tl4 15:20 Arm band placed on left wrist. tl4 15:23 Kaitlyn Lujan RN is Primary Nurse. mb9 15:24 Placed in gown. Bed in low position. Call light in reach. Side rails up X 1. Provided mb9 Education on: press call light if needing anything. Client placed on continuous cardiac and pulse oximetry monitoring. NIBP monitoring applied. greenhouse laborer on. 15:24 No provider procedures requiring assistance completed. mb9 15:42 XRAY Foot LEFT 3 View In Process Unspecified. EDMS 15:43 Initial lab(s) drawn, by ne, sent to lab. Inserted saline lock: 18 gauge in left mb9 antecubital area, using aseptic technique. Blood collected. Flushed with 10 mL NS. 16:00 [employer] In Process Unspecified. EDMS 16:07 EKG done, by ED staff, reviewed by Angela PASTOR. mb9 16:39 Jayro Arenas MD is Hospitalizing Provider. jh7 17:17 Patient admitted, IV remains in place. mb9 19:04 Report given to LUNA Mcbride. mb9 19:17 Assisted to bathroom. vk Administered Medications: 16:54 Drug: NS 0.9% IV 1000 ml IV at 1 bolus Per protocol; 1000 mL bolus Route: IV; Rate: 1 mb9 bolus; Site: left antecubital; 17:39 Follow up: Response: No adverse reaction; IV Status: Completed infusion mb9 16:54 Drug: Cefepime IVPB 1 grams IVPB at 200 ml/hr once over 30 mins; (mix in NS 100 mL) mb9 Route: IVPB; Rate: 200 ml/hr; Infused Over: 30 mins; Site: left antecubital; 17:39 Follow up: IV Status: Completed infusion mb9 17:38 Drug: vancoMYCIN IVPB 1 grams IVPB once over 2 hrs Route: IVPB; Infused Over: 2 hrs; mb9 Site: left antecubital; 20:29 Follow up: Response: No adverse reaction; IV Status: Completed infusion mb9 Medication: 15:24 VIS not applicable for this client. mb9 Outcome: 16:42 Decision to Hospitalize by Provider. 7 21:37 Condition: stable tm6 22:22 Admitted to Med/surg accompanied by tech, via wheelchair, room 219, with chart, tm6 22:22 Instructed on the need for admit, 22:22 Patient left the ED. 6 Signatures: Dispatcher [employer] EDAngela Mcelroy, APPLICATIONS SCIENTIST APPLICATIONS SCIENTIST 7 Kaitlyn Lujan, RN RN mb9 Lgiia Lees Tawney RN RN tm6 Sloan Hobbs RN RN tl4 Luz Maria Parisi
[2023-09-18] MEDS ORDERED: NA CHLORIDE 0.9% 100 ML ONE ×2 (16:46→21:24)
[2023-09-18] MEDS ORDERED: VANCOMYCIN 1 GM/VIAL ONE (16:46)
[2023-09-18] MEDS ORDERED: NA CHLORIDE 0.9% 250 ML ONE (16:46)
[2023-09-18] MEDS ORDERED: CEFEPIME 1 GM/VIAL ONE (16:47)
[2023-09-18] MEDS ORDERED: NA CHLORIDE 0.9% 1,000 ML ONE (16:47)
--- NOTE | 2023-09-18 17:25 | P.HP ---
Certification for Inpatient Patient admitted to: Inpatient With expected LOS: >2 Midnights Patient will require the following post-hospital care: None Practitioner: I am a practitioner with admitting privileges, knowledge of patient current condition, hospital course, and medical plan of care. Services: Services provided to patient in accordance with Admission requirements found in Title 42 Section 412.3 of the Code of Federal Regulations Patient History Date of Service: 09/18/23 Reason for admission: Severe sepsis, diabetic foot wound History of Present Illness: 43-year-old male with history of yba-zflgfcq-thedwwxmp diabetes presents emergency department chief complaint of foul odor, left foot wound. He reports he had a small wound to the plantar aspect of his left foot for about a year now, he noticed about a week ago he had a foul odor and the wound has progressively gotten worse since then. On exam patient has a large wound to the plantar, lateral aspect of his left foot. X-ray was obtained which revealed soft tissue gas present along the medial aspect of the foot. Subcutaneous gas extends up to the ankle. There is a remote fracture at the base of the fifth metatarsal. A soft tissue wound extends up to the fifth metatarsal where there is underlying cortical irregularity. This could be related to prior trauma, cannot exclude osteomyelitis of the base of the fifth metatarsal, however gas in the soft issues could reflect gas-forming infection. Labs were significant for white blood cell count of 13.5, hemoglobin of 8.1 creatinine of 3.37 GFR of 22 glucose 251 lactic acid 1.2. ED staff consulted general surgery who will see patient, requested. N.p.o. after midnight for likely surgical intervention. Given IV antibiotics in ED, meets criteria for severe sepsis. 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 moist/pink Neck: Supple, 2+ carotid pulse no bruit, No LAD Respiratory: Clear to auscultation bilaterally, Normal air movement Cardiovascular: Regular rate/rhythm, Normal S1 S2 Gastrointestinal: Normal bowel sounds, No tenderness Musculoskeletal: No tenderness Integumentary: Diabetic ulcer (Plantar, lateral aspect of left foot) Neurological: Normal speech, Normal strength at 5/5 x4 extr, Normal tone - Studies Laboratory Data (last 24 hrs) 09/18/23 09/18/23 09/18/23 15:36 15:36 15:36 WBC 13.50 H Hgb 8.1 L Hct 23.6 L Plt Count 157 PT 15.7 H INR 1.42 APTT 32.1 Sodium 128 L Potassium 4.1 BUN 39 H Creatinine 3.37 H Glucose 251 H Total Bilirubin 1.1 H AST 24 ALT 25 Alkaline Phosphatase 90 Assessment and Plan - Plan Assessment: Severe sepsis secondary to left diabetic foot wound EULA secondary to severe sepsis Diabetes mellitus type 4jml-zizsmsx-zmezoxehf with hyperglycemia Normocytic anemia Sickle cell screening positive Plan: Severe sepsis secondary to left diabetic foot wound EULA secondary to severe sepsis SIRS criteria present including leukocytosis, tachycardia and source of infection present Meets severe sepsis given endorgan damage Lactate less than 2 Continue IV fluids, IV antibiotics with vancomycin/cefepime General surgery consulted, n.p.o. to midnight Blood cultures obtained in ED Diabetes mellitus type [id number]-irlnnhn-bxhxfzivg with hyperglycemia A1c in the morning, ACHS Accu-Chek, sliding scale insulin Takes glimepiride at home Normocytic anemia Sickle cell screening positive Near baseline hemoglobin Had a positive sickle cell screening test during last admission in 2021 Would need further confirmatory testing with electrophoresis-likely outpatient Iron studies ordered-would want to avoid iron supplementation and acute infection and also an sickle cell to avoid iron overload DVT PPX: SCD Code status: Full Discharge Plan: Home Plan to discharge in: Greater than 2 days - Advance Directives Does patient have a Living Will: No Does patient have a Durable POA for Healthcare: No - Code Status/Comfort Care Code Status Assessed: Yes (Full code) Critical Care: No Time Spent Managing Pts Care (In Minutes): 70
[2023-09-18] MEDS ORDERED: ONDANSETRON 4 MG/2 ML VIAL IV PRN (18:03)
[2023-09-18] MEDS ORDERED: MELATONIN 5 MG TABLET PO PRN (18:03)
[2023-09-18] MEDS: INSULIN REGULAR (HUMAN) 100 UNIT/ML SQ SCH (18:03)
[2023-09-18] MEDS: NA CHLORIDE 0.9% 1,000 ML IV SCH (18:03)
[2023-09-18] MEDS: VANCOMYCIN 1 GM in NA CHLORIDE 0.9% 250 ML IVPB SCH (18:03)
[2023-09-18 18:04] LABS: Blood Morphology Comment NOT SEEN (NOT SEEN); Platelet Estimate ADEQ; White Blood Cell Scan OK (OK)
[2023-09-18] MEDS: VANCOMYCIN 500 MG in NA CHLORIDE 0.9% 100 ML IVPB ONE (18:45)
--- NOTE | 2023-09-18 20:12 | RAD REPORT ---
EXAM DESCRIPTION: US - Renal Ultrasound-Complete - 09/18/2023 6:57 pm CLINICAL HISTORY: shaheen COMPARISON: No comparisons FINDINGS: Increased echogenicity of the kidneys bilaterally. The right kidney measures 12.6 cm. No hydronephrosis, focal mass or perinephric fluid. The left kidney measures 11.4 cm. No hydronephrosis, focal mass or perinephric fluid. Grossly unremarkable bladder. IMPRESSION: Increased echogenicity of the kidneys consistent with medical renal disease. No hydronep hrosis.
[2023-09-18] MEDS ORDERED: VANCOMYCIN 500 MG/VIAL ONE (21:24)
[2023-09-18] MEDS: HYDROCODONE/APAP 7.5/325 MG TAB PO PRN (23:10)
--- NOTE | 2023-09-18 23:44 | CON ---
Date of Consultation: 09/18/2023 Chief Complaint: Severe sepsis, diabetic foot infection and wound, acute kidney injury. History Of Present Illness: The patient is a 43-year-old man with history of yhu-srsaipf-ikjnpmhwy diabetes mellitus, who presented to emergency room department with chief complaint of foul odor left foot wound. He reported that he had small wound to the plantar aspect of his left foot for about a year now. He noticed about a week ago that he had foul odor, and the wound has progressively gotten worse and there was small discharge. On exam, the patient was hemodynamically stable. Chest x-ray was obtained, which revealed soft tissue gas present along the medial aspect of the foot. Subcutaneous gas extends up to the ankle. There is remote fracture at the base of the fifth metatarsal bone. Soft tissue wound extends up to the fifth metatarsal, where there is underlying cortical irregularity. The patient is admitted to the hospital, and Nephrology consultation is requested for acute kidney injury. The patient denies difficulty voiding. Denies hematuria, dysuria. Denies back pain. Denies kidney stones or any previous operation. Creatinine level is 3.37. Lactic acid 1.2. Glucose 251. GFR 22. Hemoglobin 8.1. The patient is to have surgical intervention tomorrow for diabetic foot infection. The patient has severe sepsis. Past Medical History: Diabetes mellitus, iron-deficiency anemia, acute kidney injury during hospitalization few years ago. The patient was found to have elevated creatinine level up to 2, did not require dialysis. Sickle cell trait. Debridement, right foot. Family History: Father, diabetes. Social History: Never smoker. Denies alcohol. Denies drugs. Review of Systems: As per H and P. Physical Examination: General: Alert, in no apparent distress. Oriented x3. HEENT: Atraumatic, normocephalic. Neck: Supple. 2+ carotids felt. No bruits. No LAD. Respiratory: Clear to auscultation bilaterally. Normal air movement. Cardiovascular: S1, S2. Regular rate and rhythm. Gastrointestinal: Normal bowel sounds. No tenderness. Musculoskeletal: No tenderness. Skin: Lateral aspect of the left foot plantar area diabetic left foot, diabetic ulcer. Neurologic: No tremor. Cranial nerves intact. Laboratory Work: WBC 13.5, hemoglobin 8.1, platelet count 157,000. Sodium 128, potassium 4.1, BUN 49, creatinine 3.37, glucose 251. AST 24, ALT 25, alkaline phosphatase 90. Impression And Plan: 1. Severe sepsis secondary to diabetic wound. The patient has diabetic foot infection, and he was found to have acute kidney injury secondary to sepsis. Diabetes mellitus type 2 will be treated with insulin. The patient is on broad- spectrum antibiotic and he will require debridement. The patient is to have surgery tomorrow. The patient has severe sepsis due to left diabetic foot wound, acute kidney injury is due to severe sepsis. Continue IV fluids. Monitor lactic acid level and electrolytes. The patient was found to have hyponatremia, which is due to acute kidney injury. The patient will have TSH level checked. 2. Anemia. Sickle cell screening positive. Further recommendation from Primary team. Re-evaluate iron studies. 3. The patient does not have a history of hypertension. He has longstanding history of diabetes mellitus with complication like acute kidney injury a few years ago. The patient denies nonsteroidal anti-inflammatory medication. Ultrasound showed hyperechogenic kidneys, which can correspond with chronic kidney disease. Baseline renal function is not established. Likely the patient has underlying chronic kidney disease stage 3. EB/MODL Voice ID: [id number] Report ID: [id number] [place]
[2023-09-19 05:03] LABS: Absolute Lymphocytes (CBC) 0.5 K/uL (0.7-4.9); Absolute Monocytes 1.2 K/uL (0.1-1.3); Absolute Neutrophil 9.8 K/uL (1.8-8.0); Basophils % 0.2 % (0-1.3); Eosinophils % 0.1 % (0-4.4); Hematocrit 27.7 % (39.6-49.0); Hemoglobin 8.9 g/dL (13.6-17.9); Lymphocytes % 4.6 % (15.3-44.8); MCH 29.2 pg (27.0-35.0); MCHC 32.2 g/dL (32.0-36.0); MCV 90.9 fL (80-100); MPV 8.8 fL (7.6-11.3); Monocytes % 10.1 % (3.3-12.3); Platelets 122 thou/uL (152-406); RBC Red Blood Cell Count 3.05 M/uL (4.33-5.43); Red Cell Distribution Width 14.8 % (12.1-15.2)
[2023-09-19 05:32] LABS: Ferritin 722.4 ng/mL (26-388); Uric Acid 6.2 mg/dL (3.5-7.2)
[2023-09-19] MEDS: CEFEPIME 1 GM in NA CHLORIDE 0.9% 100 ML IV SCH ×2 (07:59→08:51)
[2023-09-19] MEDS ORDERED: propofoL 200 MG/20 ML VIAL IV ONE (13:49)
[2023-09-19] MEDS ORDERED: FENTANYL CITR 100 MCG/2 ML ONE (13:49)
[2023-09-19] MEDS ORDERED: LIDOCAINE 1% MPF 5 ML VIAL ONE (13:49)
[2023-09-19] MEDS ORDERED: MIDAZOLAM HCL 2 MG/2 ML INJ ONE (14:00)
[2023-09-19] MEDS: CLINDAMYCIN 900MG/D5W 900 MG/50 ML IVPB IV SCH (14:00)
[2023-09-19] MEDS: LIDOCAINE 1% MPF 5 ML VIAL ONE (14:01)
[2023-09-19] MEDS: EPINEPHRINE 1 MG/ML VIAL ONE (14:01)
[2023-09-19] MEDS: dexAMETHasone 10 MG/ML VIAL ONE (14:02)
[2023-09-19] MEDS: ROPLVACAINE HCL 20 ML ONE (14:02)
[2023-09-19] MEDS: LIDOCAINE HCL/EPINEPHRINE 20 ML MDV ONE (14:07)
[2023-09-19] MEDS ORDERED: ONDANSETRON 4 MG/2 ML VIAL ONE (15:23)
--- NOTE | 2023-09-19 15:35 | P.OP ---
Preoperative diagnosis: LEFT Foot Diabetic Wound Postoperative diagnosis: LEFT Foot Diabetic Wound Primary procedure: Debridement of LEFT Foot Diabetic Wound Anesthesia: GETA + Regional Estimated blood loss: <2cc Specimen: Cultures / Debridement Tissue Findings: ~ 7cm x 5cm down through bones of midfoot abutting calcaneus, bone fracture Complications: None Transferred to: Recovery Room Condition: Good
--- NOTE | 2023-09-19 16:31 | EKG ---
Test Date: 2023-09-18 Test Time: 15:49:17 Bi Analyst: DEEPIKA MEASUREMENT RESULTS: Intervals: Rate: 90 NE: 132 QRSD: 90 QT: 398 QTc: 486 [place]: P: 82 NE: 132 QRS: 80 T: -30 INTERPRETIVE STATEMENTS: Normal sinus rhythm Abnormal QRS-T angle, consider primary T wave abnormality Prolonged QT Abnormal ECG Compared to ECG 02/09/2022 12:59:19 Prolonged QT interval now present Sinus tachycardia no longer present Left ventricular hypertrophy no longer present T-wave abnormality still present Electronically Signed On 09-19-23 16:28:46 CDT by Satinder Fernando
--- NOTE | 2023-09-19 19:10 | P.PN ---
Date of Service: 09/19/23 Subjective Surgery today feeling well, able to converse drainage and odor from the left foot wound prior to surgery ROS 10 point ROS as noted above, otherwise negative Physical Exam General: Alert and Oriented x3, NAD HEENT: Atraumatic, PERRLA, Mucous membr. moist/pink Neck: Supple, 2+ carotid pulse no bruit, No LAD Respiratory: Clear to auscultation bilaterally, Normal air movement Cardiovascular: RRR, no murmur noted, Normal S1 S2 Gastrointestinal: Normal bowel sounds, No tenderness Musculoskeletal: No tenderness Integumentary: Diabetic ulcer (Plantar, lateral aspect of left foot) Neurological: Normal speech, Normal strength at 5/5 x4 extr, Normal tone Vitals Reviewed Problem list Severe sepsis secondary to left diabetic foot wound EULA secondary to severe sepsis Diabetes mellitus type 7sja-onpcjpk-nvhgpfjkr with hyperglycemia Normocytic anemia Sickle cell screening positive Assessment and Plan Severe sepsis secondary to left diabetic foot wound Bacteremia EULA secondary to severe sepsis SIRS criteria present including leukocytosis, tachycardia and source of infection present Meets severe sepsis given endorgan damage Gram + cocci in clusters in 3 bottles Lactate less than 2 Continue IV fluids, IV antibiotics with vancomycin/cefepime/clindamycin General surgery consulted, n.p.o. to midnight Blood cultures obtained in ED Diabetes mellitus type 0cqf-aceyadz-yitxmpjud with hyperglycemia A1c 6.6 ACHS Accu-Chek, sliding scale insulin Takes glimepiride at home Normocytic anemia Sickle cell screening positive Near baseline hemoglobin Had a positive sickle cell screening test during last admission in 2021 Would need further confirmatory testing with electrophoresis-likely outpatient Iron studies ordered-would want to avoid iron supplementation and acute infection and also an sickle cell to avoid iron overload DVT PPX: SCD Code status: Full Discharge Plan: Home Plan to discharge in: Greater than 2 days
--- NOTE | 2023-09-19 19:26 | PN ---
Date of Progress Note: 09/19/2023 Chief Complaint: Acute on chronic kidney injury, severe sepsis, diabetic foot infection and wound. History Of Present Illness: The patient is a 43-year-old man with history of woh-goedtkc-erqgkwsap d iabetes mellitus, who presented to emergency department with chief complaint of foul odor of the left foot wound. He reported that he had small wound in the plantar aspect of his left foot for about a year now and recently he noticed foul odor and came to the hospital. The patient did not have histor y of chronic kidney disease, although ultrasound demonstrated some changes related to chronic kidney disease versus increased echogenicity. There is no hydronephrosis. The patient apparently was not t aking any blood pressure medication and did not have. A diagnosis is made for high blood pressure. He was treated for diabetes mellitus and denies kidney problems, although on previous occasion to [facility], the patient was found to have elevated creatinine up to 2.2 and he had DKA and severe hyp erglycemia, uncontrolled diabetes. The patient denies complaints today. Review of Systems: Denies fever, chills. Physical Examination: Lungs: Clear to auscultation bilaterally. Heart: S1, S2. Abdomen: Soft, benign. Extremities: Dressing in place. Impression And Plan: 1.Severe sepsis secondary to diabetic wound infection, foot infection. He is to have debridement an d surgical team is consulted for surgery. Monitor electrolytes. Avoid nephrotoxic medication. Avoi d IV contrast exposure if possible. 2.Anemia. Sickle cell screening positive per recommendation from primary team. Iron study is pendi ng. The patient does not have history of hypertension. There is longstanding history of diabetes me llitus with complication like acute kidney injury few years ago. The patient denies nonsteroidal ant i-inflammatory medication. Ultrasound showed hyper echoic kidneys, which can correspond with chronic kidney disease. Baseline renal function is not established. Continue to monitor renal function. C ontinue IV fluids for mild hydration to prevent acute kidney injury acceleration. EB/MODL Voice ID: [id number] Report ID: [id number]
[2023-09-19] MEDS: INSULIN REGULAR (HUMAN) 100 UNIT/ML SQ SCH (21:18)
[2023-09-19] MEDS: NA CHLORIDE 0.9% 250 ML ONE (21:27)
--- NOTE | 2023-09-19 23:27 | OP ---
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 Procedure Performed: Debridement of left foot lateral diabetic wound. Anesthesia: General endotracheal plus regional. Estimated Blood Loss: Less than 2 cc. Specimens: Specimen was culture sent for both aerobic and anaerobic speciation and debridement tissu e. Findings: There was approximately 7 cm x 5 cm diabetic wound with exposed bone, fractured bone, invo lving the mid foot along the calcaneus extending both distally and proximally and over the dorsal mayra t. Multiple bone fractures were appreciated in this area as well as necrotic tissue with abscess. Complications: None. Disposition: The patient was transferred to recovery room in good condition. Brief Hpi: The patient is a 43-year-old male, who has a longstanding history of uncontrolled diabete s, who presented with a left lateral foot wound. He states this has been treated at [facility] in [place]/ [facility]. He states that his foot continued to get progressively worse over t he last few days ultimately culminating in abscess drainage and foul odor and increased pain and tend erness. As such, he came to the emergency room with the above-stated complaints. He had a workup wh ich showed significant infection and gas formation of the left lateral foot chronic wound and he stat es that he has had this treated for a prolonged period of time without significant change; however, debbie cunningham has not been very compliant with medical management with respect to his diabetes. I explained to t he patient the preoperative procedure and the perioperative course including discussion about possibl e surgical options including amputation versus debridement of the area with the understanding that de bridement might not be successful due to the significant size of this wound, complexity and involveme nt of bony structures as well as multiple structures of the foot necessary for proper ambulation and as such, he would have significant disability of the area. However, the patient states he would not submit to any or consider any amputation type procedures at this point and might consider in the futu re, but absolutely does not want any form of amputation at this time. We would like to try surgical debridement as he states he has had a wound of a similar type on the other foot several years ago anup ated without amputation and as such, he wanted to attempt this on this side as well. I explained the risks, benefits, and alternatives of this plan including, but not limited to bleeding, infection, da mage to surrounding tissues, need for further operative procedures, ascending infection, higher level amputation, permanent disability, and so forth including perioperative complications. I have also e xplained that the patient needs ongoing endovascular treatment/vascular evaluation for improvement of his poor blood flow to the area for optimal treatment. Procedure In Detail: After informed consent was obtained as described above, the patient was prepped and draped in the usual sterile fashion after adequate anesthesia was ensured at this point. I circ umferentially dissected around a lateral foot wound with a 15 blade down to subcutaneous tissues. A large open gaping foot wound with exposed bone was encountered prior to making incision; however, I c ircumferentially dissected out all necrotic tissue using a combination of 15 blade, sharp dissection, electrocautery down through subcutaneous tissues, into the tissues of the midfoot. The calcaneus cecilia ne proximally was encountered at this point and had significant pus in the calcaneal area extending t hrough the mid foot section with complete separation of the tendinous connections and ligaments betwe en the forefoot and the calcaneus bone anteriorly. These were grossly necrotic and as such were debr ided down to good bleeding tissue. After the tissue and nonviable tissue were removed, minimal vascu larity was appreciated for the majority of the case, however, bleeding tissue was encountered and as such, I debrided all nonviable tissue having to extend the incision proximally as well and over the m id foot removing all these nonviable tissue. At this point, I used a pulse lavage device to cleanse out the area after all nonviable tissue was removed. Minimal hemostasis was required using minimal e lectrocautery. At this point, the wound was then packed with Vashe-soaked 0.5-inch packing all the w ay through the tissue planes and a sterile dressing placed over top. The patient tolerated the proce dure well without incident or complication, transferred to PACU in good condition. All counts were c orrect at the end of the case. TK/MODL Voice ID: [id number] Report ID: [id number]
[2023-09-20] MEDS: VANCOMYCIN 1.5 GM in NA CHLORIDE 0.9% 500 ML IVPB SCH (05:40)
[2023-09-20] MEDS ORDERED: VANCOMYCIN 1.5 GM in NA CHLORIDE 0.9% 500 ML IVPB SCH (06:00)
[2023-09-20 06:17] LABS: Specific Gravity 1.012 (1.005-1.030); Sqamous Epithelial <5 /HPF (None Seen); Urine Bacteria <20 /HPF (<20); Urine Bilirubin NEGATIVE (Negative); Urine Blood 2+ (Negative); Urine Clarity Clear (Clear); Urine Color Light-Yellow (Yellow); Urine Culture Reflex Order NOT NEEDED; Urine Glucose 4+ (Over) (Negative); Urine Ketones 1+ (Negative); Urine Micro Reflex YN NO BILL MICROSCOPIC; Urine Mucus Slight /HPF (None Seen); Urine Nitrite NEGATIVE (Negative); Urine Protein 1+ (Negative); Urine RBC <5 /HPF (None Seen); Urine Sperm Present (None Seen); Urine Urobilinogen Normal (Normal); Urine WBC <5 /HPF (<5); Urine pH 5.5 (5.0-7.0)
--- NOTE | 2023-09-20 07:27 | P.PN ---
Date of Service: 09/20/23 Subjective Sitting up in the bed, conversing well, reports his foot feels numb from the surgical block Reports no pain to his foot ROS 10 point ROS as noted above, otherwise negative Physical Exam General: AAO x3, NAD HEENT: Atraumatic, PERRLA, Mucous membr. moist/pink Neck: Supple, 2+ carotid pulse no bruit, No LAD Respiratory: Clear to auscultation bilaterally, Normal air movement Cardiovascular: Regular rate and rhythm, no murmur noted, S1 S2 present Gastrointestinal: Normal bowel sounds, No tenderness Musculoskeletal: No tenderness Integumentary: Diabetic ulcer (Plantar, lateral aspect of left foot), dressing CDI Neurological: Normal speech, Normal strength at 5/5 x4 extr, Normal tone Vitals Reviewed Problem list Severe sepsis secondary to left diabetic foot wound EULA secondary to severe sepsis Diabetes mellitus type 3bju-ednmebu-abzqmgbsv with hyperglycemia Normocytic anemia Sickle cell screening positive Assessment and Plan Severe sepsis secondary to left diabetic foot wound Bacteremia EULA secondary to severe sepsis SIRS criteria present including leukocytosis, tachycardia and source of infection present Meets severe sepsis given endorgan damage Gram + cocci in clusters in 3 bottles, staph coagulase Repeat blood cultures 09/20 Lactate less than 2 Continue IV fluids, IV antibiotics with vancomycin/cefepime/clindamycin General surgery consulted, incision and drainage performed 09/19/2023 Daily wound packing with 1/2" plain packing with vashe damp, then cover with dry kerlix, MIKA, elevate Diabetes mellitus type 5srd-pbhmluv-nrjzferof with hyperglycemia A1c 6.6 ACHS Accu-Chek, sliding scale insulin Takes glimepiride at home Normocytic anemia Sickle cell screening positive Near baseline hemoglobin, continue to monitor Had a positive sickle cell screening test during last admission in 2021 Would need further confirmatory testing with electrophoresis-likely outpatient Iron studies ordered-would want to avoid iron supplementation in acute infection and also sickle cell to avoid iron overload DVT PPX: SCD Code status: Full Discharge Plan: Home Plan to discharge in: Greater than 2 days
[2023-09-20] MEDS: COLLAGENASE 30 GM OINTMENT TOP SCH (09:16)
[2023-09-20 10:41] LABS: Absolute Lymphocytes (CBC) 0.5 K/uL (0.7-4.9); Absolute Monocytes 0.4 K/uL (0.1-1.3); Absolute Neutrophil 15.2 K/uL (1.8-8.0); Basophils % 0.2 % (0-1.3); Hematocrit 22.8 % (39.6-49.0); Hemoglobin 7.5 g/dL (13.6-17.9); Lymphocytes % 3.1 % (15.3-44.8); MCH 29.6 pg (27.0-35.0); MCHC 32.8 g/dL (32.0-36.0); MCV 90.4 fL (80-100); MPV 8.9 fL (7.6-11.3); Monocytes % 2.8 % (3.3-12.3); Neutrophils % 93.9 % (41.7-73.7); Platelets 219 thou/uL (152-406); RBC Red Blood Cell Count 2.52 M/uL (4.33-5.43); Red Cell Distribution Width 15.4 % (12.1-15.2)
[2023-09-20 10:55] LABS: Anion Gap 11.8 mEq/L (5.0-15.0); Potassium 4.8 mEq/L (3.5-5.1)
[2023-09-20 11:55] LABS: Blood Morphology Comment NOT SEEN (NOT SEEN); Platelet Estimate ADEQ; White Blood Cell Scan OK (OK)
[2023-09-20] MEDS: NA CHLORIDE 0.9% 1,000 ML IV SCH (21:11)
--- NOTE | 2023-09-21 02:15 | PN ---
Date of Progress Note: 09/20/2023 Chief Complaint: Acute on chronic kidney injury, severe sepsis, diabetic foot infection and wound. History Of Present Illness: Patient is a 43-year-old man with history of noninsulin-dependent diabet es mellitus, who presented to emergency department with chief complaint of foul odor of the left foot wound. He denies fever, chills. Denies syncope. Nephrology consultation was requested for abnorma l BUN and creatinine. Patient has acute kidney injury. Renal ultrasound did not show hydronephrosis . The patient denies difficulty voiding. Denies previous history of hematuria or dysuria. Review of Systems: Denies chest pain, palpitation. Physical Examination: Lungs: Clear to auscultation bilaterally. Heart: S1, S2. Abdomen: Soft, benign. Extremities: Dressing in place. Impression And Plan: 1.Severe sepsis secondary to diabetic foot infection. He is to have debridement and procedure was d one during this admission. The patient will continue wound care. 2.Anemia. Sickle cell screening positive. Further recommendation from primary team. Iron study is pending. 3.Diabetes mellitus with renal manifestation. Patient has acute on chronic kidney injury. Continue adequate hydration and check urinalysis for any evidence of active nephritis. Patient had serology lab work done to screen for possible nephritis. Likely, he has ATN due to ongoing severe sepsis. Th e patient does not require dialysis. Potassium level has improved. Continue to avoid nephrotoxic medication and use IV fluids as needed for mild hydration to prevent acute kidney injury acceleration. EB/MODL Voice ID: [id number] Report ID: [id number]
[2023-09-21 06:27] LABS: Absolute Lymphocytes (CBC) 1.6 K/uL (0.7-4.9); Absolute Monocytes 0.9 K/uL (0.1-1.3); Absolute Neutrophil 12.4 K/uL (1.8-8.0); Basophils % 0.3 % (0-1.3); Eosinophils % 0.1 % (0-4.4); Hematocrit 20.5 % (39.6-49.0); Hemoglobin 6.9 g/dL (13.6-17.9); Lymphocytes % 10.6 % (15.3-44.8); MCH 30.5 pg (27.0-35.0); MCHC 33.8 g/dL (32.0-36.0); MCV 90.4 fL (80-100); MPV 8.3 fL (7.6-11.3); Monocytes % 6.3 % (3.3-12.3); Neutrophils % 82.7 % (41.7-73.7); Platelets 251 thou/uL (152-406); RBC Red Blood Cell Count 2.26 M/uL (4.33-5.43)
--- NOTE | 2023-09-21 06:36 | P.PN ---
Date of Service: 09/21/23 Subjective Awake and feeling well no new complaints plan to align home antibiotics and PICC line placed, repeat blood Cx neg ROS 10 point ROS as noted above, otherwise negative Physical Exam General: Alert and oriented x3, NAD, HEENT: Atraumatic, PERRLA, MMM Neck: Supple, 2+ carotid pulse no bruit, No LAD Respiratory: Clear to auscultation bilaterally, symmetrical chest wall movement, on RA Cardiovascular: RRR, no murmur noted, S1 S2 present Gastrointestinal: Normal bowel sounds, No tenderness Musculoskeletal: No tenderness Integumentary: Diabetic ulcer (Plantar, lateral aspect of left foot), dressing CDI Neurological: Normal speech, Normal strength at 5/5 x4 extr, Normal tone Vitals Reviewed Problem list Severe sepsis secondary to left diabetic foot wound EULA secondary to severe sepsis Diabetes mellitus type 2hhs-rkrtwqg-dqbfdtwzu with hyperglycemia Normocytic anemia Sickle cell screening positive Assessment and Plan Severe sepsis secondary to left diabetic foot wound Bacteremia wound culture ESBL/MSSA EULA secondary to severe sepsis SIRS criteria present including leukocytosis, tachycardia and source of infection present Meets severe sepsis given endorgan damage Gram + cocci in clusters in 3 bottles, staph coagulase Repeat blood cultures 09/19- NGTD Wound culture results MSSA sensitive to vancomycin, ESBL sensitive to cefepime Lactate less than 2 Continue IV fluids, IV antibiotics with vancomycin/cefepime/clindamycin General surgery consulted, incision and drainage performed 09/19/2023 Daily wound packing with 1/2" plain packing with vashe damp, then cover with dry kerlix, MIKA, elevate Diabetes mellitus type 1kvo-krqoisf-kwavdrqsu with hyperglycemia A1c 6.6 ACHS Accu-Chek, sliding scale insulin added semglee at bedtime Takes glimepiride at home Normocytic anemia Sickle cell screening positive Near baseline hemoglobin, continue to monitor Had a positive sickle cell screening test during last admission in 2021 Would need further confirmatory testing with electrophoresis-likely outpatient Iron studies ordered-would want to avoid iron supplementation in acute infection and also sickle cell to avoid iron overload H/H 6.9/20.5, one unit PRBC transfused, S/P transfusion H/H 8.6/25.5 DVT PPX: SCD Code status: Full Discharge Plan: Home Plan to discharge in: Greater than 2 days
[2023-09-21] MEDS: FUROSEMIDE 20 MG/ 2ML VIAL IV ONE (06:46)
[2023-09-21] MEDS: NA CHLORIDE 0.9% 250 ML IV SCH (07:00)
--- NOTE | 2023-09-21 11:30 | CON ---
History Of Present Illness: This is a 43-year-old male. I was consulted for bacteremia. The patien t has a significant past medical history of diabetes mellitus, coming in with diabetic foot ulcer on the left side with foul odor. Denies any headache, nausea, vomiting, chest pain, abdominal pain, con stipation, or diarrhea. The patient is being followed at on a regular basis where he goes every 2 weeks for debridement. The patient's x-ray shows soft tissue gas presentation on the left f oot. X-rays could not exclude osteomyelitis. Past Medical History: Diabetes mellitus, diabetic neuropathy. Social History: Nonsmoker, nondrinker. Family History: Noncontributory. Medications: Cefepime and vancomycin. See MAR for other medications. Allergies: NO KNOWN DRUG ALLERGIES. Review of Systems: A 10-point review was performed. Physical Examination: General: This is a 43-year-old male, lying in bed, not in any acute cardiopulmonary distress. Vital Signs: Temperature 97, pulse 84, respirations 16, blood pressure 128/62. HEENT: Unremarkable. Neck: Supple. Lungs: Clear to auscultation. Heart: S1, S2. Regular. Abdomen: Soft, nontender. Bowel sounds present. Extremities: No edema. Left foot wound noted. Laboratory Data: Shows WBC 16.1, hemoglobin 7.5, platelets 219. Chemistry shows BUN of 40, creatini ne 2.6, glucose is 441. Microbiology Data: Shows cultures are pending. Blood cultures done on 09/17 show gram-positive cocc i in clusters. Assessment And Plan: This is a 43-year-old male with gram-positive cocci in clusters in blood, sensi tivity and specificity pending. The patient is currently being treated with vancomycin and cefepime. Longstanding history of diabetes mellitus. Renal insufficiency of creatinine showing 2.6, coming i n with 3.37. Bacteremia secondary to gram-positive cocci in cluster. Continue vancomycin and cefepime until the f ull cultures are available. Consider getting an MRI of the left foot to rule out osteomyelitis. The patient's A1c is 6.6, which shows the patient has decent sugar control outside hospital. Continuing to manage diabetes in hospital. Continue diabetic education. Continue supportive care and wound ca re as per surgical team. Continue antibiotic for 6 weeks. Keep leg elevated when possible. We will follow the patient as needed. Thank you for consult. PRIMITIVO/JAYNA Voice ID: [id number] Report ID: [id number]
[2023-09-21 18:32] LABS: Hematocrit 25.5 % (39.6-49.0); Hemoglobin 8.6 g/dL (13.6-17.9)
--- NOTE | 2023-09-21 20:29 | RAD REPORT ---
EXAM DESCRIPTION: MRI - Foot Left Wo Cont - 09/21/2023 7:30 pm CLINICAL HISTORY: Left foot ulcer r/o osteomyelitis COMPARISON: Foot Left 3 View dated 09/18/2023 FINDINGS: Ulceration along the lateral aspect of the foot at the level of the fifth metatarsal. Ther e is abnormal edema within the fifth metatarsal and at the base of the fourth metatarsal. No abscess identified. There is a remote fracture at the base of the fifth metatarsal. Mild edema present within the cuboid as well. There are small foci of T1/ T2 hypointensity that may represent locules of gas i n the region of the ulceration and between the cuboid and fourth and fifth metatarsals. A fluid collection is present between the first and second metatarsals measuring approximately 6 cm by 2.7 cm by 0.7 cm . A fluid collection in the dorsal soft tissues at the level of the second metata rsal measures 2.2 x 1.5 cm. Multiple small T1 T2 hypointense foci noted within both collection that m ay represent locules of air as was seen on the radiograph. IMPRESSION: Bone marrow edema at the fifth metatarsal, base of the fourth metatarsal, and at the cub oid. Given the proximity of the wound to the fifth metatarsal, osteomyelitis is suspected. Edema at t he proximal fourth metatarsal and at the cuboid could reflect changes of early osteomyelitis versus d egenerative changes. Fluid collection with gas between the first and second metatarsal and dorsal to the second metatarsal could represent abscesses. Some soft tissue gas in the region of the ulceration which could be from recent instrumentation.
--- NOTE | 2023-09-21 21:39 | PN ---
Date of Progress Note: 09/21/2023 Chief Complaint: Acute on chronic kidney injury, severe sepsis, diabetic foot infection and wound. Subjective: The patient was consulted by Infectious Disease. Nephrology consultation was requested for elevated BUN and creatinine level. Renal function is gradually improving with IV fluids. The elia bro likely has underlying chronic kidney disease stage 3. He developed acute kidney injury due to ATN in the setting of severe sepsis. He denied kidney stone, hematuria, dysuria. Review of Systems: Denies chest pain, palpitation. Physical Examination: Lungs: Clear to auscultation bilaterally. Heart: S1, S2. Abdomen: Soft. Extremities: Dressing in place. Impression And Plan: 1.Severe sepsis secondary to diabetic foot infection. The patient had debridement. This was done J . The patient will continue IV antibiotics and wound care. Infectious Disease is consulted. 2.Acute kidney injury in the setting of chronic kidney disease, likely the patient has diabetic kidn ey disease. He denies history of hypertension. The patient does not require dialysis. 3.Hyperkalemia, resolved. Avoid nephrotoxic medication. EB/MODL Voice ID: [id number] Report ID: [id number]
[2023-09-21] MEDS: INSULIN GLARGINE 100 UNIT/ML SQ SCH (22:09)
[2023-09-22] MEDS: CLINDAMYCIN 900MG/D5W 900 MG/50 ML IVPB IV SCH (01:28)
[2023-09-22] MEDS: levoFLOXacin 750 MG TAB PO SCH (09:42)
[2023-09-22] MEDS: CEFAZOLIN SODIUM 2 GM in NA CHLORIDE 0.9% 100 ML IVPB SCH (09:43)
[2023-09-22 10:51] LABS: Absolute Lymphocytes (CBC) 1.5 K/uL (0.7-4.9); Absolute Monocytes 1.2 K/uL (0.1-1.3); Absolute Neutrophil 17.7 K/uL (1.8-8.0); Basophils % 0.1 % (0-1.3); Eosinophils % 0.1 % (0-4.4); Hemoglobin 7.2 g/dL (13.6-17.9); Lymphocytes % 7.2 % (15.3-44.8); MCHC 32.9 g/dL (32.0-36.0); MCV 88.4 fL (80-100); MPV 7.5 fL (7.6-11.3); Monocytes % 5.9 % (3.3-12.3); Neutrophils % 86.7 % (41.7-73.7); Platelets 311 thou/uL (152-406); RBC Red Blood Cell Count 2.49 M/uL (4.33-5.43); Red Cell Distribution Width 17.2 % (12.1-15.2)
[2023-09-22 11:16] LABS: Anion Gap 8.2 mEq/L (5.0-15.0); Potassium 4.2 mEq/L (3.5-5.1)
[2023-09-22 14:46] VITALS: BMI 24.4
[2023-09-22 16:52] LABS: Ferritin 460.8 ng/mL (26-388)
[2023-09-22 18:32] LABS: Percent Reticulocyte Count 1.15 % (0.4-2.05); RBC Red Blood Cell Count 2.54 M/uL (4.33-5.43)
--- NOTE | 2023-09-22 20:10 | P.PN ---
Date of Service: 09/22/23 Subjective Sleeping well No new complaint ROS 10 point ROS as noted above, otherwise negative Physical Exam General: AAO x3, NAD, afebrile HEENT: Atraumatic, PERRLA, MMM Neck: Supple, 2+ carotid pulse no bruit, No LAD Respiratory: Clear to auscultation bilaterally, symmetrical chest wall movement, on RA Cardiovascular: tachycardia, S1 S2 present, no murmur noted Gastrointestinal: Normal bowel sounds, No tenderness Musculoskeletal: No tenderness Integumentary: Diabetic ulcer (Plantar, lateral aspect of left foot), dressing CDI Neurological: Normal speech, Normal strength at 5/5 x4 extr, Normal tone Vitals Reviewed Problem list Severe sepsis secondary to left diabetic foot wound Leukocytosis Bacteremia EULA secondary to severe sepsis Diabetes mellitus type 7qbx-jvqthre-offmfpmvp with hyperglycemia Normocytic anemia Sickle cell screening positive Assessment and Plan Severe sepsis secondary to left diabetic foot wound Leukocytosis Bacteremia wound culture ESBL/MSSA EULA secondary to severe sepsis -SIRS criteria present including leukocytosis, tachycardia and source of infection present -Meets severe sepsis given endorgan damage -Gram + cocci in clusters in 3 bottles, staph coagulase -Repeat blood cultures 09/19- NGTD -Wound culture results MSSA sensitive to vancomycin, ESBL sensitive to cefepime -Lactate less than 2 -Continue IV fluids -IV antibiotics changed from vancomycin/cefepime/clindamycin to ancef Q 12H 09/21 -General surgery consulted, incision and drainage performed 09/19/2023 -Daily wound packing with 1/2" plain packing with vashe damp, then cover with dry kerlix, MIKA, elevate -MRI resulted Bone marrow edema at the fifth metatarsal, base of the fourth metatarsal, and at the cuboid. Given the proximity of the wound to the fifth metatarsal, osteomyelitis is suspected. Edema at the proximal fourth metatarsal and at the cuboid could reflect changes of early osteomyelitis versus degenerative changes. gas in the region of the ulceration, fluid collectio with gas between first and second metatarsal and dorsal to the second metatarsal could represent abscessess. Diabetes mellitus type 3prx-scwfiwm-gocxdtzbs with hyperglycemia -A1c 6.6 -ACHS Accu-Chek, sliding scale insulin -added semglee at bedtime- improved serum glucose -Takes glimepiride at home Normocytic anemia Sickle cell screening positive -Near baseline hemoglobin, continue to monitor -Had a positive sickle cell screening test during last admission in 2021 -Would need further confirmatory testing with electrophoresis-likely outpatient -Iron studies ordered-would want to avoid iron supplementation in acute infection and also sickle cell to avoid iron overload -H/H 6.9/20.5, one unit PRBC transfused, S/P transfusion H/H 8.6/25.5 7/25 -H/H 7.2/22.0 -Iron 15.0, TIBC 129, Transferrin 92, transferrin Saturation 11.6, ferritin 460.8, Vit B12 1062, absolute Retic 0.03, Precent Retic 1.15 -Unable to give iron with active infection DVT PPX: SCD Code status: Full Discharge Plan: Home Plan to discharge in: Greater than 2 days
[2023-09-22] MEDS: Mupirocin NASAL 2 APPL/1 GM TUBE NAS SCH (21:25)
--- NOTE | 2023-09-22 21:33 | RAD REPORT ---
EXAM DESCRIPTION: RAD - Chest Single View - 09/22/2023 9:26 pm CLINICAL HISTORY: Device placement PICC line placement IMPRESSION: PICC line with its tip in the distal superior vena cava
--- NOTE | 2023-09-22 22:30 | PN ---
Date of Progress Note: 09/22/2023 Chief Complaint: Acute on chronic kidney injury, severe sepsis, diabetic foot infection and wound, s tatus post debridement. Subjective: The patient has underlying chronic kidney disease stage 3. He developed acute kidney in jury due to ATN in setting of severe sepsis. Review of Systems: Denies complaints. Physical Examination: Lungs: Clear to auscultation bilaterally. Heart: S1, S2. Abdomen: Soft. Extremities: Dressing in place. Impression And Plan: 1.Severe sepsis secondary to diabetic foot infection. The patient underwent debridement on August d. Continue IV antibiotics and wound care. Infectious Disease was consulted. 2.Acute kidney injury due to ATN. The patient has likely diabetic kidney disease. The patient may require renal biopsy for further workup. The patient denies history of hypertension. Acute kidney i njury is nonoliguric and is gradually resolving. The patient did not require dialysis. 3.Hyperkalemia, resolved. Avoid nephrotoxic medication. Continue low-potassium diet. EB/MODL Voice ID: [id number] Report ID: [id number]
[2023-09-22 23:17] LABS: Abnormal Protein Band 1 REPORT; Alpha-1-Globulins 0.6 g/dL (0.2-0.3); Beta 1 Globulin 0.4 g/dL (0.4-0.6); Gamma Globulins 1.3 g/dL (0.8-1.7); INTERPRETATION REPORT; Total Protein 5.9 g/dL (6.1-8.1)
[2023-09-23] MEDS ORDERED: VANCOMYCIN 1.5 GM in NA CHLORIDE 0.9% 500 ML IVPB SCH (07:00)
[2023-09-23 10:25] LABS: Absolute Basophils 0.1 K/uL (0-0.5); Absolute Lymphocytes (CBC) 1.5 K/uL (0.7-4.9); Absolute Monocytes 1.2 K/uL (0.1-1.3); Absolute Neutrophil 21.4 K/uL (1.8-8.0); Basophils % 0.2 % (0-1.3); Eosinophils % 0.1 % (0-4.4); Hematocrit 20.1 % (39.6-49.0); Hemoglobin 6.7 g/dL (13.6-17.9); Lymphocytes % 6.3 % (15.3-44.8); MCH 29.3 pg (27.0-35.0); MCHC 33.4 g/dL (32.0-36.0); MCV 87.8 fL (80-100); MPV 7.1 fL (7.6-11.3); Monocytes % 4.9 % (3.3-12.3); Neutrophils % 88.5 % (41.7-73.7); Platelets 312 thou/uL (152-406); RBC Red Blood Cell Count 2.29 M/uL (4.33-5.43); Red Cell Distribution Width 17.1 % (12.1-15.2)
[2023-09-23 10:32] LABS: Anion Gap 9.2 mEq/L (5.0-15.0); Potassium 4.2 mEq/L (3.5-5.1)
[2023-09-23 10:54] LABS: Blood Morphology Comment NOTED (NOT SEEN); Hypochromasia 1+; Platelet Estimate ADEQ; White Blood Cell Scan OK (OK)
[2023-09-23 10:55] LABS: Rouleau NOTED
[2023-09-23 13:05] LABS: Complement (CH50), Total >60 U/mL (31-60)
[2023-09-23] MEDS: NA CHLORIDE 0.9% 1,000 ML ONE (13:17)
[2023-09-23] MEDS ORDERED: NA CHLORIDE 0.9% 250 ML IV SCH (14:00)
[2023-09-23] MEDS ORDERED: LIDOCAINE 1% MPF 5 ML VIAL ONE (14:36)
[2023-09-23] MEDS ORDERED: propofoL 200 MG/20 ML VIAL IV ONE (14:36)
[2023-09-23] MEDS ORDERED: MIDAZOLAM HCL 2 MG/2 ML INJ ONE (14:37)
[2023-09-23] MEDS ORDERED: KETAMINE HCL IN 0.9 % NACL 50 MG/5 ML SYRINGE IV ONE ×2 (14:37→14:42)
[2023-09-23] MEDS ORDERED: FENTANYL CITR 100 MCG/2 ML ONE ×2 (14:45→14:48)
[2023-09-23] MEDS ORDERED: dexAMETHasone 4 MG/ML VIAL ONE (14:46)
[2023-09-23] MEDS ORDERED: ONDANSETRON 4 MG/2 ML VIAL ONE (14:46)
[2023-09-23] MEDS: LIDOCAINE HCL/EPINEPHRINE 20 ML MDV ONE (15:05)
--- NOTE | 2023-09-23 15:15 | P.OP ---
Preoperative diagnosis: LEFT foot abscess Postoperative diagnosis: LEFT foot abscess Primary procedure: Incision and Drainage of LEFT foot abscess Anesthesia: MAC + Local Estimated blood loss: <5cc Specimen: cultures Findings: multiloculated abscess of 2nd metatarsal web space Complications: None Transferred to: Recovery Room Condition: Good
[2023-09-23 15:32] LABS: Complement C3 141 mg/dL (82-185)
--- NOTE | 2023-09-23 16:55 | P.PN ---
Date of Service: 09/23/23 Subjective Awake, no new complaints surgery this morning Afebrile ROS 10 point ROS as noted above, otherwise negative Physical Exam General: Alert and oriented x3, No acute distress HEENT: Atraumatic, PERRLA Neck: Supple, 2+ carotid pulse no bruit, No LAD Respiratory: Clear to auscultation bilaterally, nonlabored breathing, on RA Cardiovascular: Sinus tachycardia, S1 S2 present, no murmur noted Gastrointestinal: Normal bowel sounds, No tenderness Musculoskeletal: No tenderness Integumentary: Diabetic ulcer (Plantar, lateral aspect of left foot), dressing CDI Neurological: Normal speech, Normal strength at 5/5 x4 extr, Normal tone Vitals Reviewed Problem list Severe sepsis secondary to left diabetic foot wound Leukocytosis Bacteremia wound culture ESBL/MSSA EULA secondary to severe sepsis Diabetes mellitus type 5cgf-umqchtr-pjllrwena with hyperglycemia Normocytic anemia Sickle cell screening positive Assessment and Plan Severe sepsis secondary to left diabetic foot wound Leukocytosis Bacteremia wound culture ESBL/MSSA EULA secondary to severe sepsis -SIRS criteria present including leukocytosis, tachycardia and source of infection present -Meets severe sepsis given endorgan damage -Gram + cocci in clusters in 3 bottles, staph coagulase -Repeat blood cultures 09/19- NGTD - Wound culture results MSSA sensitive to vancomycin, ESBL sensitive to cefepime -09/22 wound cultures pending -Lactate less than 2 -Continue IV fluids -IV antibiotics changed from vancomycin/cefepime/clindamycin to ancef Q 12H 09/21 -General surgery consulted, incision and drainage performed 09/19/2023, and 09/23/23 -Daily wound packing with 1/2" plain packing with vashe damp, then cover with dry kerlix, MIKA, elevate -MRI resulted Bone marrow edema at the fifth metatarsal, base of the fourth metatarsal, and at the cuboid. Given the proximity of the wound to the fifth metatarsal, osteomyelitis is suspected. Edema at the proximal fourth metatarsal and at the cuboid could reflect changes of early osteomyelitis versus degenerative changes. gas in the region of the ulceration, fluid collection with gas between first and second metatarsal and dorsal to the second metatarsal could represent abscesses. Diabetes mellitus type 2ckz-arjrqcd-xdaxnifus with hyperglycemia -A1c 6.6 -ACHS Accu-Chek, sliding scale insulin -added semglee at bedtime- improved serum glucose -Takes glimepiride at home Normocytic anemia Sickle cell screening positive -Near baseline hemoglobin, continue to monitor -Had a positive sickle cell screening test during last admission in 2021 -Would need further confirmatory testing with electrophoresis-likely outpatient -Iron studies ordered-would want to avoid iron supplementation in acute infection and also sickle cell to avoid iron overload -H/H 6.7/20.1 -one unit PRBC transfused 09/20, two units PRBC 09/22 -Iron 15.0, TIBC 129, Transferrin 92, transferrin Saturation 11.6, ferritin 460.8, Vit B12 1062, absolute Retic 0.03, Precent Retic 1.15 -Unable to give iron with active infection DVT PPX: SCD Code status: Full Discharge Plan: Home Plan to discharge in: Greater than 2 days
[2023-09-23] MEDS: FUROSEMIDE 20 MG/ 2ML VIAL IV SCH (18:27)
[2023-09-23] MEDS: FUROSEMIDE 20 MG/ 2ML VIAL ONE (19:40)
--- NOTE | 2023-09-23 20:12 | OP ---
Date of Procedure: 09/23/2023 Surgeon: Alberto Alarcon MD, Preoperative Diagnosis: Left foot abscess. Postoperative Diagnosis: Left foot abscess. Procedure Performed: Incision and drainage of left foot abscess. Anesthesia: MAC plus local. Estimated Blood Loss: Less than 5 cc. Specimen: Cultures sent for both aerobic and anaerobic speciation. Findings: Multiloculated abscess along the second metatarsal webspace extending to the mid foot. Complications: None. Disposition: Patient transferred to recovery room in good condition. Procedure In Detail: After informed consent was obtained, patient was brought to the operating room, prepped and draped in the usual sterile fashion after adequate anesthesia was achieved. I made a li near incision overlying the second webspace of the metatarsal head region proximally extending to the midfoot where multiloculated abscess was appreciated. I digitized this area until all abscess locul ations were broken up. I then irrigated the area after abscess material was cultured both aerobic an d anaerobic speciation. I irrigated until completely clear. At this point, I packed with Vashe soak ed sterile dressing and sterile dressing placed over top. The patient tolerated the procedure well w ithout incident or complication, transferred to PACU in good condition. All counts were correct at t he end of the case. All remaining wounds were packed in the usual fashion using Vashe and packing material and the foot was wrapped and elevated. SANDEEP/JAYNA Voice ID: [id number] Report ID: [id number]
--- NOTE | 2023-09-23 22:33 | PN ---
Date of Progress Note: 09/23/2023 Subjective: No overnight events. His creatinine continues to improve. Hemoglobin down to 6.7. Rec eived IV fluids. White count up to 24,000. Physical Examination: Vital Signs: Temperature 97.6, pulse rate 102, blood pressure 157/86. General: Awake, alert, oriented x3, not in distress. Neck: Supple. No elevated JVD. Heart: Regular rate and rhythm. Normal S1, S2. Chest: Clear to auscultation bilaterally. No rales or wheezes. Abdomen: Soft, nontender. Extremities: No edema. Foot is swollen. Laboratory Data: Sodium 137, potassium 4.2, BUN 24, creatinine 2.2. White count 24,000, hemoglobin 6.7. Assessment And Plan: 1.Acute kidney injury on diabetic chronic kidney disease due to dehydration, possibly acute tubular necrosis. Creatinine is slowly improving. This is down to 2.2 today. We will consider to discontin ue IV fluid tomorrow. Creatinine continues to improve. Renal ultrasound shows no hydronephrosis. A void NSAID and contrast. Renal dose medication. 2.Diabetic chronic kidney disease, unknown baseline creatinine. Creatinine was 2021, but ultrasound showed bilateral echogenic kidney as above, might benefit from as an outpatien t once creatinine has stabilized. 3.Acute anemia, status post PRBC. Monitor H and H. 4.Diabetic foot ulcer, status post debridement. Continue antibiotics. Renal dose medication. 5.Diabetes mellitus. Continue on insulin. Thanks for allowing me to participate in patient care. Total time I spent 55 minutes including docum entation, reviewing labs, and discussing with the patient at the bedside. SUSIE/JAYNA Voice ID: [id number] Report ID: [id number]
[2023-09-24] MEDS: FUROSEMIDE 20 MG/ 2ML VIAL IV SCH (00:49)
[2023-09-24 04:05] LABS: Absolute Lymphocytes (CBC) 1.4 K/uL (0.7-4.9); Absolute Monocytes 1.1 K/uL (0.1-1.3); Absolute Neutrophil 25.8 K/uL (1.8-8.0); Basophils % 0.1 % (0-1.3); Eosinophils % 0.1 % (0-4.4); Hematocrit 24.9 % (39.6-49.0); Hemoglobin 8.1 g/dL (13.6-17.9); MCH 28.5 pg (27.0-35.0); MCHC 32.7 g/dL (32.0-36.0); MPV 7.2 fL (7.6-11.3); Neutrophils % 90.8 % (41.7-73.7); Platelets 340 thou/uL (152-406); RBC Red Blood Cell Count 2.86 M/uL (4.33-5.43); Red Cell Distribution Width 17.4 % (12.1-15.2)
[2023-09-24 04:23] LABS: Anion Gap 11.4 mEq/L (5.0-15.0); Potassium 4.4 mEq/L (3.5-5.1)
[2023-09-24 05:16] LABS: Band Neutrophils 4 % (0-1); Differential Total Cells Count 100; Lymphocytes 8 % (15-42); Monocytes 4 % (0-10); Segmented Neutrophils 84 % (40-80)
[2023-09-24 05:17] LABS: Blood Morphology Comment NOT SEEN (NOT SEEN); Platelet Estimate ADEQ
--- NOTE | 2023-09-24 07:55 | P.PN ---
Date of Service: 09/24/23 Subjective Awake and reports feeling very well, ambulating independently Afebrile White count continues to elevate Needing specimen culture results from 09/22 another blood culture today 09/23 Antibiotics have been set up ROS 10 point ROS as noted above, otherwise negative Physical Exam General: AAO x3, No acute distress, conversing well HEENT: Atraumatic, PERRLA Neck: Supple, 2+ carotid pulse no bruit, No LAD Respiratory: Clear to auscultation bilaterally, symmetrical chest wall movement, on RA Cardiovascular: Regular rate and rhythm, S1 S2 present, no murmur noted Gastrointestinal: Normal bowel sounds, ND/NT, soft on palpation Musculoskeletal: No tenderness Integumentary: Diabetic ulcer (Plantar, lateral aspect of left foot), dressing CDI Neurological: Normal speech, Normal strength at 5/5 x4 extr, Normal tone Vitals Reviewed Problem list Severe sepsis secondary to left diabetic foot wound Leukocytosis Bacteremia wound culture ESBL/MSSA EULA secondary to severe sepsis Diabetes mellitus type 1ozc-dbwttrs-pgdusuask with hyperglycemia Normocytic anemia Sickle cell screening positive Assessment and Plan Severe sepsis secondary to left diabetic foot wound suspected osteomylitis Leukocytosis Bacteremia MSSA wound culture ESBL/MSSA EULA secondary to severe sepsis -SIRS criteria present including leukocytosis, tachycardia and source of infection present -Meets severe sepsis given endorgan damage -Gram + cocci in clusters in 3 bottles, MSSA- correction to previous note -Repeat blood cultures 09/19- NGTD -repeat blood cultures 09/23- results pending -09/18 Wound culture results MSSA sensitive to vancomycin, ESBL sensitive to cefepime -09/22 wound cultures pending -Lactate less than 2 -Continue IV fluids -IV antibiotics changed from vancomycin/cefepime/clindamycin to ancef Q 12H and Levaquin Q48h 09/21 -General surgery consulted, incision and drainage performed 09/19/2023, and 09/23/23 -Daily wound packing with 1/2" plain packing with vashe damp, then cover with dry kerlix, MIKA, elevate -MRI resulted Bone marrow edema at the fifth metatarsal, base of the fourth metatarsal, and at the cuboid. Given the proximity of the wound to the fifth metatarsal, osteomyelitis is suspected. Edema at the proximal fourth metatarsal and at the cuboid could reflect changes of early osteomyelitis versus degenerative changes. gas in the region of the ulceration, fluid collection with gas between first and second metatarsal and dorsal to the second metatarsal could represent abscesses. Diabetes mellitus type 6gbb-nisqsze-wlkrmpngj with hyperglycemia -A1c 6.6 -ACHS Accu-Chek -Sopped sliding scale insulin and semglee -started glimepiride 4 mg BID home dose Normocytic anemia Sickle cell screening positive -Near baseline hemoglobin, continue to monitor -Had a positive sickle cell screening test during last admission in 2021 -Would need further confirmatory testing with electrophoresis-likely outpatient -Iron studies ordered-would want to avoid iron supplementation in acute infection and also sickle cell to avoid iron overload -H/H 8.1/.9 after 2 Units PRBC- continue monitoring -one unit PRBC transfused 09/20, two units PRBC 09/22 -Iron 15.0, TIBC 129, Transferrin 92, transferrin Saturation 11.6, ferritin 460.8, Vit B12 1062, absolute Retic 0.03, Precent Retic 1.15 -Unable to give iron with active infection DVT PPX: SCD Code status: Full Discharge Plan: Home Plan to discharge in: Likely Tuesday <Mary Meyer - Last Filed: 09/24/23 10:44> Leukocytosis is trending up, up to 28,000. Status post left foot debridement by Dr. Alarcon yesterday. Afebrile. Stable vitals. Stress from surgery may be contributing to the leukocytosis. Home IV antibiotics set up waiting for WBC to trend down before discharge. Repeat blood cultures. Continue current antibiotics. Patient is refusing insulin therapy and requested we restart his home dose gl imepiride which has been resumed per patient's request. Monitor CBC. <margarito cheng - Last Filed: 09/24/23 17:29>
[2023-09-24] MEDS ORDERED: VANCOMYCIN 1 GM in NA CHLORIDE 0.9% 250 ML IVPB SCH (11:00)
[2023-09-24] MEDS: GLYBURIDE PO SCH (11:02)
[2023-09-24] MEDS: GLIMEPIRIDE 2 MG TABLET PO SCH (12:00)
--- NOTE | 2023-09-24 13:41 | P.PN ---
Subjective Date of Service: 09/24/23 Chief Complaint: Severe sepsis, diabetic foot wound Subjective: No overnight events. Cr stablizing, will dc IVF WBC trending Up , Abx changed Physical Examination: General: Awake, alert, oriented x3, not in distress. Neck: Supple. No elevated JVD. Heart: Regular rate and rhythm. Normal S1, S2. Chest: Clear to auscultation bilaterally. No rales or wheezes. Abdomen: Soft, nontender. Extremities: No edema. Foot is swollen. Assessment And Plan: #. Acute kidney injury on diabetic chronic kidney disease due to dehydration, possibly acute tubular necrosis. Creatinine down to 2.2 and stablized e will discontinue IV f Renal ultrasound shows no hydronephrosis. Avoid NSAID and contrast. Renal dose medication. #. Diabetic chronic kidney disease, unknown baseline creatinine. Creatinine was 1.0 2021, ultrasound showed bilateral echogenic kidney , might benefit from MIKA pr ARB as an outpatient once creatinine has stabilized. #. Acute anemia, status post PRBC. Monitor H and H. #. Diabetic foot ulcer, status post debridement. Abx changed to Ancef #. Diabetes mellitus. Continue on insulin. Thanks for allowing me to participate in patient care. Total time I spent 55 minutes including documentation, reviewing labs, and discussing with the patient at the bedside. Physical Examination - Vital Signs Temperature: 98.3 F Blood Pressure: 148/85 Pulse: 93 Respirations: 20 Pulse Ox (%): 100
[2023-09-24] MEDS ORDERED: GLYBURIDE PO SCH (21:00)
[2023-09-25] MEDS: NA CHLORIDE 0.9% 250 ML ONE (01:24)
[2023-09-25] MEDS: CEFAZOLIN SODIUM 2 GM in NA CHLORIDE 0.9% 100 ML IVPB SCH (01:32)
[2023-09-25 05:38] LABS: Absolute Basophils 0.1 K/uL (0-0.5); Absolute Eosinophils 0.1 K/uL (0-0.5); Absolute Lymphocytes (CBC) 1.7 K/uL (0.7-4.9); Absolute Monocytes 1.1 K/uL (0.1-1.3); Absolute Neutrophil 16.3 K/uL (1.8-8.0); Basophils % 0.4 % (0-1.3); Eosinophils % 0.6 % (0-4.4); Hematocrit 23.6 % (39.6-49.0); Hemoglobin 7.9 g/dL (13.6-17.9); Lymphocytes % 8.9 % (15.3-44.8); MCH 29.1 pg (27.0-35.0); MCHC 33.6 g/dL (32.0-36.0); MCV 86.5 fL (80-100); MPV 6.8 fL (7.6-11.3); Monocytes % 5.5 % (3.3-12.3); Neutrophils % 84.6 % (41.7-73.7); Nucleated Red Blood Cells % 0.1 % (0-0); Platelets 380 thou/uL (152-406); RBC Red Blood Cell Count 2.73 M/uL (4.33-5.43); Red Cell Distribution Width 17.4 % (12.1-15.2)
[2023-09-25 05:58] LABS: Anion Gap 8.1 mEq/L (5.0-15.0); Potassium 4.1 mEq/L (3.5-5.1)
[2023-09-25 13:21] LABS: Anti-Double Strand DNA Antibod 2 IU/mL (<=4)
--- NOTE | 2023-09-25 13:25 | P.PN ---
Subjective Date of Service: 09/25/23 Chief Complaint: Severe sepsis, diabetic foot wound Subjective: No overnight events. Cr stable , off IVF WBC trending down Physical Examination: General: Awake, alert, oriented x3, not in distress. Neck: Supple. No elevated JVD. Heart: Regular rate and rhythm. Normal S1, S2. Chest: Clear to auscultation bilaterally. No rales or wheezes. Abdomen: Soft, nontender. Extremities: No edema. Foot dressed Assessment And Plan: #. Acute kidney injury on diabetic chronic kidney disease due to dehydration, possibly acute tubular necrosis. Creatinine down to 2.0 and merlny , could be his new baseline Renal ultrasound shows no hydronephrosis. Avoid NSAID and contrast. Renal dose medication. #. Diabetic chronic kidney disease, unknown baseline creatinine. Creatinine was 1.0 2021, ultrasound showed bilateral echogenic kidney , might benefit from MIKA pr ARB as an outpatient once creatinine has stabilized. #. Acute anemia, status post PRBC. Monitor H and H. #. Diabetic foot ulcer, status post debridement. Abx changed to Ancef #. Diabetes mellitus. Continue on insulin. Thanks for allowing me to participate in patient care. Total time I spent 55 minutes including documentation, reviewing labs, and discussing with the patient at the bedside. Physical Examination - Vital Signs Temperature: 99.5 F Blood Pressure: 141/77 Pulse: 93 Respirations: 18 Pulse Ox (%): 98
--- NOTE | 2023-09-25 19:46 | P.PN ---
Date of Service: 09/25/23 Subjective Awake and ambulating in his room No new complaints Antibiotics have been set up ROS 10 point ROS as noted above, otherwise negative Physical Exam General: awake, alert and oriented x3, No acute distress HEENT: Atraumatic, PERRLA Neck: Supple, 2+ carotid pulse no bruit, No LAD Respiratory: Clear to auscultation bilaterally, symmetrical chest wall movement, on RA Cardiovascular: mild tachycardia, S1 S2 present, no murmur noted Gastrointestinal: Normal bowel sounds, soft on palpation, ND/NT Musculoskeletal: No tenderness Integumentary: Diabetic ulcer (Plantar, lateral aspect of left foot), dressing CDI Neurological: Normal speech, Normal strength at 5/5 x4 extr, Normal tone Vitals Reviewed Problem list Severe sepsis secondary to left diabetic foot wound Leukocytosis Bacteremia wound culture ESBL/MSSA EULA secondary to severe sepsis Diabetes mellitus type 0gck-yxcxyil-sidfnzeok with hyperglycemia Normocytic anemia Sickle cell screening positive Assessment and Plan Severe sepsis secondary to left diabetic foot wound suspected osteomylitis Leukocytosis Bacteremia MSSA wound culture ESBL/MSSA EULA secondary to severe sepsis -SIRS criteria present including leukocytosis, tachycardia and source of infection present -Meets severe sepsis given endorgan damage -Gram + cocci in clusters in 3 bottles, MSSA- correction to previous note -Repeat blood cultures 09/19- NGTD -repeat blood cultures 09/23-NGTD -09/18 Wound culture results MSSA sensitive to vancomycin, ESBL sensitive to cefepime -09/22 wound anerobic cultures White blood cells, no organism seen, 1+ mixed sam -WBC trend 20.4/24.2/28.4/19.30-elevation likely from surgical stress -Lactate less than 2 -Continue IV fluids -IV antibiotics changed from vancomycin/cefepime/clindamycin to ancef Q 12H and Levaquin Q48h 09/21 -General surgery consulted, incision and drainage performed 09/19/2023, and 09/23/23 -Daily wound packing with 1/2" plain packing with vashe damp, then cover with dry kerlix, MIKA, elevate -MRI resulted Bone marrow edema at the fifth metatarsal, base of the fourth metatarsal, and at the cuboid. Given the proximity of the wound to the fifth metatarsal, osteomyelitis is suspected. Edema at the proximal fourth metatarsal and at the cuboid could reflect changes of early osteomyelitis versus degenerative changes. gas in the region of the ulceration, fluid collection with gas between first and second metatarsal and dorsal to the second metatarsal could represent abscesses. Diabetes mellitus type 9zze-qbmuwcq-hqhlugxyu with hyperglycemia -A1c 6.6 -ACHS Accu-Chek -Sopped sliding scale insulin and semglee -started glimepiride 4 mg BID home dose Normocytic anemia Sickle cell screening positive -Near baseline hemoglobin, continue to monitor -Had a positive sickle cell screening test during last admission in 2021 -Would need further confirmatory testing with electrophoresis-likely outpatient -Iron studies ordered-would want to avoid iron supplementation in acute infection and also sickle cell to avoid iron overload -H/H 8.1/.9 after 2 Units PRBC- continue monitoring -one unit PRBC transfused 09/20, two units PRBC 09/22 -Iron 15.0, TIBC 129, Transferrin 92, transferrin Saturation 11.6, ferritin 460.8, Vit B12 1062, absolute Retic 0.03, Precent Retic 1.15 -Unable to give iron with active infection DVT PPX: SCD Code status: Full Discharge Plan: Home Plan to discharge in: Likely Tuesday
[2023-09-26 01:29] VITALS: O2SAT 97
[2023-09-26 09:25] LABS: Absolute Eosinophils 0.1 K/uL (0-0.5); Absolute Lymphocytes (CBC) 1.2 K/uL (0.7-4.9); Absolute Monocytes 0.9 K/uL (0.1-1.3); Absolute Neutrophil 18.2 K/uL (1.8-8.0); Basophils % 0.2 % (0-1.3); Eosinophils % 0.5 % (0-4.4); Hemoglobin 7.9 g/dL (13.6-17.9); Lymphocytes % 5.9 % (15.3-44.8); MCH 27.8 pg (27.0-35.0); MCHC 31.7 g/dL (32.0-36.0); MCV 87.6 fL (80-100); MPV 6.7 fL (7.6-11.3); Monocytes % 4.3 % (3.3-12.3); Neutrophils % 89.1 % (41.7-73.7); Platelets 360 thou/uL (152-406); RBC Red Blood Cell Count 2.85 M/uL (4.33-5.43); Red Cell Distribution Width 17.4 % (12.1-15.2)
[2023-09-26 09:42] LABS: Anion Gap 8.3 mEq/L (5.0-15.0); Magnesium 1.8 mg/dL (1.6-2.4); Phosphorus 2.9 mg/dL (2.5-4.9); Potassium 4.3 mEq/L (3.5-5.1)
[2023-09-26 10:24] LABS: C-ANCA Anti-Proteinase 3 3.2 AI (<1.0); P-ANCA Anti-Myeloperoxidase Ab <1.0 AI (<1.0)
[2023-09-26 13:00] VITALS: BP 161/76; TEMP 100
--- NOTE | 2023-09-26 13:25 | P.DS ---
Admission Date: 09/18/23 Discharge Date: 09/26/23 Disposition: AMA-LEFT AGAINST MEDICAL ADVIC Discharge Condition: GOOD Reason for Admission: Severe sepsis, diabetic foot wound Consultations: Dr. Sadler nephrology Dr. Alarcon general surgery Dr. Saunders infectious disease Brief History of Present Illness: 43-year-old male with history of osq-grctjhc-vpdhzeirz diabetes presents emergency department chief complaint of foul odor, left foot wound. He reports he had a small wound to the plantar aspect of his left foot for about a year now, he noticed about a week ago he had a foul odor and the wound has progressively gotten worse since then. On exam patient has a large wound to the plantar, lateral aspect of his left foot. X-ray was obtained which revealed soft tissue gas present along the medial aspect of the foot. Subcutaneous gas extends up to the ankle. There is a remote fracture at the base of the fifth metatarsal. A soft tissue wound extends up to the fifth metatarsal where there is underlying cortical irregularity. This could be related to prior trauma, cannot exclude osteomyelitis of the base of the fifth metatarsal, however gas in the soft issues could reflect gas-forming infection. Labs were significant for white blood cell count of 13.5, hemoglobin of 8.1 creatinine of 3.37 GFR of 22 glucose 251 lactic acid 1.2. ED staff consulted general surgery who will see patient, requested. N.p.o. after midnight for likely surgical intervention. Given IV antibiotics in ED, meets criteria for severe sepsis. Hospital Course: Problem list ANCA Positive Severe sepsis secondary to left diabetic foot wound Leukocytosis Bacteremia wound culture ESBL/MSSA EULA secondary to severe sepsis Diabetes mellitus type 5xbx-uasyhdn-gybuusqav with hyperglycemia Normocytic anemia Sickle cell screening positive Vital Signs/Physical Exam: Temp Pulse Resp BP Pulse Ox 100.0 F 102 H 20 161/76 H 93 09/26/23 12:00 09/26/23 12:00 09/26/23 12:00 09/26/23 12:00 09/26/23 12:00 General: Alert, In no apparent distress, Oriented x3 HEENT: Atraumatic, PERRLA Neck: Supple, JVD not distended Respiratory: Clear to auscultation bilaterally, Normal air movement Cardiovascular: Regular rate/rhythm, Normal S1 S2 Gastrointestinal: Normal bowel sounds, No tenderness Musculoskeletal: No tenderness Integumentary: Tenderness/swelling (Wound present to left foot without significant erythema/drainage), Diabetic ulcer Neurological: Normal speech, Normal tone, Normal affect Laboratory Data at Discharge: WBC 20.40 thou/uL (4.3-10.9) H 09/26/23 09:15 Hgb 7.9 g/dL (13.6-17.9) L 09/26/23 09:15 Hct 25.0 % (39.6-49.0) L 09/26/23 09:15 Plt Count 360 thou/uL (152-406) 09/26/23 09:15 PT 15.7 SECONDS (9.4-12.5) H 09/18/23 15:36 INR 1.42 09/18/23 15:36 APTT 32.1 SECONDS (24.3-36.9) 09/18/23 15:36 Sodium 138 mEq/L (136-145) 09/26/23 09:15 Potassium 4.3 mEq/L (3.5-5.1) 09/26/23 09:15 BUN 18 mg/dL (7-18) 09/26/23 09:15 Creatinine 2.07 mg/dL (0.70-1.30) H 09/26/23 09:15 Glucose 192 mg/dL (74-106) H 09/26/23 09:15 Uric Acid 6.2 mg/dL (3.5-7.2) 09/19/23 04:24 Phosphorus 2.9 mg/dL (2.5-4.9) 09/26/23 09:15 Magnesium 1.8 mg/dL (1.6-2.4) 09/26/23 09:15 Total Bilirubin 1.1 mg/dL (0.2-1.0) H 09/18/23 15:36 AST 24 U/L (15-37) 09/18/23 15:36 ALT 25 U/L (16-61) 09/18/23 15:36 Alkaline Phosphatase 90 U/L (45-117) 09/18/23 15:36 Triglycerides 156 mg/dL (<150) H 09/19/23 04:24 Cholesterol 70 mg/dL (<200) 09/19/23 04:24 HDL Cholesterol 16 mg/dL (40-60) L 09/19/23 04:24 Cholesterol/HDL Ratio 4.38 09/19/23 04:24 Home Medications: Collagenase [Santyl Ointment*] 1 appl TOP DAILY 14 Days #1 tube 02/18/22 Hydrocodone 5/APAP 325 [[place] 5/325*] 1 tab PO Q8H PRN #20 tab 02/18/22 Insulin 70/30 NPH/Reg Human [Novolin 70/30*] 20 unit SQ BID 30 Days #12 ml 02/18/22 Glimepiride 2 mg PO BIDWM 09/24/23 Physician Discharge Instructions: Patient was admitted to the hospital for left diabetic foot wound. He underwent debridement 7 cm x 5 cm down through bones of the midfoot abutting calcaneus with bone fracture present on 09/[address] Alarcon., He subsequently underwent a incision and drainage of a left foot abscess with multiloculated abscess of the second metatarsal webspace on 09/22. His blood cultures from 09/17 showed Staph aureus, MSSA. Infectious disease was consulted and recommended MRI be obtained, MRI of the foot showed bone marrow edema at the fifth metatarsal, base of the fourth metatarsal and at the cuboid. Osteomyelitis suspected. The abscess that was incised/drained was also identified on this MRI. Infectious disease recommended 6 weeks of IV antibioticsAncef 2 g IV twice daily with end date of 11/02/2023. Additionally on admission patient had acute kidney injury, his creatinine on admission was 3.37, this improved to around 2 and has remained stable off IV fluids. Counseled on avoidance of NSAIDs, will need to follow-up with nephrology outpatient. He is also noted to be anemic, iron level was 15. He was not started on any IV or p.o. iron given his acute infectious process, also of note during a previous admission he was positive for the sickle cell trait. He had been doing well, clinically improving his white blood cell count did spike after the incision and drainage of the abscess peaking at 28.4 on 09/23, on 09/24 it came down to 19.3 and today on 09/25 it is 20.4. We discussed these results with the patient and the concern that his white blood cell count is still quite high. Patient feels like he can appropriately care for himself at home at this point and is frustrated/tired of being in the hospital, requesting to be discharged. We discussed that this would need to be AGAINST MEDICAL ADVICE given the presence of a significant leukocytosis still and complex hospital course. Patient verbalized understanding and still would like to leave today. His antibiotics have been arranged and delivered, he will need to follow-up with his primary care doctorDr. Ang, nephrology, general surgery. Additionally on day of discharge patient also noted to be ANCA positive, nephrology recommends renal biopsy. Offered inpatient renal biopsy, this was discussed with patient including the risks of not having further testing with worsening kidney function/dialysis dependence. They prefer to leave the hospital today and follow-up as an outpatient for further testing including renal biopsy. Wound care per general surgery Daily wound packing with 1/2" plain packing with vashe damp, then cover with dry kerlix, MIKA elevate Diet: Renal Activity: Touch-down Followup: Nathaniel Sadler MD [ACTIVE - CAN ADMIT] - 1 Week Alberto Alarcon MD [ACTIVE - CAN ADMIT] - 1 Week Bryant Ang DO [Primary Care Provider] - 1 Week Time spent managing pt's care (in minutes): 42
--- NOTE | 2023-09-27 03:40 | PN ---
Date of Progress Note: 09/26/2023 Chief Complaint: Severe sepsis, diabetic foot wound infection, acute on chronic kidney injury. Review of Systems: Denies chest pain, palpitation. Physical Examination: Lungs: Clear to auscultation bilaterally. Heart: S1, S2. Abdomen: Soft. Extremities: Dressing in place. Impression: 1. Acute kidney injury on diabetic chronic kidney disease due to volume depletion, possibly acute tubular necrosis. Serum creatinine level is down to 2, this may be his new baseline. Workup was initiated to rule out any evidence of glomerulonephritis and ANCA test is positive. The patient needs a renal biopsy as soon as possible. The patient wants to do kidney biopsy outpatient. He will follow up with glacing machine tender within next 7 days. 2. Diabetic chronic kidney disease. The patient is taken off MIKA inhibitor due to acute kidney injury. Monitor electrolytes and renal function. 3. Anemia, status post PRBC transfusion. Monitor hemoglobin level. 4. Diabetic foot ulcer, status post debridement. Continue antibiotics . 5. Diabetes mellitus. Continue insulin. Re-evaluate blood glucose log. ISIS/JAYNA Voice ID: [id number] Report ID: [id number] MTDD
[2023-09-28 16:01] LABS: Beta Globulin 24 HR Urine 11 %; Creatinine 24 Hour Urine 1.14 g/24 h (0.50-2.15); Gamma Globulin, 24hr Urine 18 %; Interpretation: REPORT; Protein/Crea Ratio in g 1163 mg/g creat (<100); Protein/Crea Ratio in mg 1.163 (<0.100); Urine Albumin 24 Hours 58 %; Urine Alpha-1-Globulin, 24Hr 3 %; Urine Alpha-2-Globulins, 24 Hr 10 %; Urine PEP Abn Protein Band1 REPORT; Urine Total Volume 24 Hours 1050 mL
[2023-09-28 20:10] LABS: Anti-Nuclear Antibody Screen Negative (Negative)
== END 2023-09-26 13:08 | disposition left against medical advice (07) | DRG 853 ==
LOC: ER 15:05 → ERHOLD 17:13 → 2ND 21:43
PROVIDERS: ADMIT Hospitalist; ATTEND Internal Medicine
PROC: 0JBR0ZZ Excision of Left Foot Subcutaneous Tissue and Fascia, Open Approach (ICD-10-PCS; principal; 2023-09-19 15:45)
PROC: 30233N1 Transfusion of Nonautologous Red Blood Cells into Peripheral Vein, Percutaneous Approach (ICD-10-PCS; 2023-09-21)
PROC: 02HV33Z Insertion of Infusion Device into Superior Vena Cava, Percutaneous Approach (ICD-10-PCS; 2023-09-22)
PROC: 0H9NXZZ Drainage of Left Foot Skin, External Approach (ICD-10-PCS; 2023-09-23)
DX: A41.01 Sepsis due to Methicillin susceptible Staphylococcus aureus (principal); N17.0 Acute kidney failure with tubular necrosis; E11.52 Type 2 diabetes mellitus with diabetic peripheral angiopathy with gangrene; E87.1 Hypo-osmolality and hyponatremia; Z16.12 Extended spectrum beta lactamase (ESBL) resistance; M86.172 Other acute osteomyelitis, left ankle and foot; R65.20 Severe sepsis without septic shock; D57.1 Sickle-cell disease without crisis; E86.0 Dehydration; E87.5 Hyperkalemia; I77.82 Antineutrophilic cytoplasmic antibody [ANCA] vasculitis; N18.30 Chronic kidney disease, stage 3 unspecified; E11.22 Type 2 diabetes mellitus with diabetic chronic kidney disease; E11.65 Type 2 diabetes mellitus with hyperglycemia; E11.40 Type 2 diabetes mellitus with diabetic neuropathy, unspecified; E11.621 Type 2 diabetes mellitus with foot ulcer; E11.69 Type 2 diabetes mellitus with other specified complication; L97.529 Non-pressure chronic ulcer of other part of left foot with unspecified severity; D63.1 Anemia in chronic kidney disease; S92.352A Displaced fracture of fifth metatarsal bone, left foot, initial encounter for closed fracture; Z79.4 Long term (current) use of insulin; Z79.84 Long term (current) use of oral hypoglycemic drugs; Z53.29 Procedure and treatment not carried out because of patient's decision for other reasons; Z79.899 Other long term (current) drug therapy
CPT/HCPCS: 36415; 71045; 76770; 80048; 80053; 80061; 80202; 81001; 82550; 82607; 82728; 82947; 83036; 83540; 83605; 83735; 84100; 84165; 84166; 84466; 84550; 85014; 85018; 85025; 85044; 85610; 85730; 86021; 86038; 86160; 86162; 86225; 86850; 86900; 86901; 86920; 87040; 87070; 87075; 87077; 87186; 87205; 88304; 93005; 93926; 96365; 96366; 99285; J0171; J0692; J1100; J1940; J2001; J2250; J2405; J2704; J3010; J3590; J7030; J7040; J7050; P9016

== ENCOUNTER 2023-09-28 16:35 | Inpatient (IN) | payer OTHER, SELFPAY ==
--- NOTE | 2023-09-28 17:50 | RAD REPORT ---
EXAM DESCRIPTION: CT - Thorax Wo Con CLINICAL HISTORY: Chest pain Pain;SOB COMPARISON: <Comparisons> FINDINGS: Mild linear opacities in both lung bases noted likely subsegmental atelectasis. Small bila teral pleural effusions. No pneumothorax. Right-sided PICC line has tip extending cephalad. No axillary, mediastinal or hilar adenopathy. No concerning bony finding. No gross upper abdominal finding. All CT scans are performed using dose optimization technique as appropriate and may include automated exposure control or mA/KV adjustment according to patient size. IMPRESSION: Mild linear opacities in both lung bases likely subsegmental atelectasis. Small bilateral pleural effusions.
[2023-09-28 19:12] LABS: Absolute Lymphocytes (CBC) 0.8 K/uL (0.7-4.9); Absolute Monocytes 0.9 K/uL (0.1-1.3); Absolute Neutrophil 24.3 K/uL (1.8-8.0); Basophils % 0.1 % (0-1.3); Hematocrit 23.2 % (39.6-49.0); Hemoglobin 7.7 g/dL (13.6-17.9); Lymphocytes % 3.2 % (15.3-44.8); MCH 28.3 pg (27.0-35.0); MCV 85.8 fL (80-100); MPV 6.7 fL (7.6-11.3); Monocytes % 3.6 % (3.3-12.3); Neutrophils % 93.1 % (41.7-73.7); Platelets 311 thou/uL (152-406); RBC Red Blood Cell Count 2.71 M/uL (4.33-5.43); Red Cell Distribution Width 17.3 % (12.1-15.2)
[2023-09-28 19:14] LABS: Blood Morphology Comment NOT SEEN (NOT SEEN); Platelet Estimate ADEQ; White Blood Cell Scan OK (OK)
[2023-09-28 19:19] LABS: PT Prothrombin Time 18.6 SECONDS (9.4-12.5); PTT, Activated Partial Thromb 29.9 SECONDS (24.3-36.9); Protime INR 1.69
--- NOTE | 2023-09-28 19:23 | RAD REPORT ---
EXAM DESCRIPTION: RAD - Chest Single View - 09/28/2023 6:07 pm CLINICAL HISTORY: picc placement Chest pain. COMPARISON: <Comparisons> FINDINGS: Portable technique limits examination quality. The right-sided PICC line tip is in the jugular vein in the neck. Mild bilateral pulmonary opacities are seen, greatest in the right lung base which may represent infection. The heart is mildly enlarged .
[2023-09-28 19:30] LABS: ALT/SGPT < 14 U/L (16-61); AST/SGOT 13 U/L (15-37); Albumin 1.5 g/dL (3.4-5.0); Albumin/Globulin Ratio 0.3 (1.1-1.8); Alkaline Phosphatase 144 U/L (45-117); Anion Gap 10.3 mEq/L (5.0-15.0); BUN Blood Urea Nitrogen 20 mg/dL (7-18); Bicarbonate 24 mEq/L (21-32); Bilirubin Total 0.6 mg/dL (0.2-1.0); Globulin 5.7 g/dL (2.3-3.5); Glomerular Filtration Rate 38 ml/min (=/>90); Glucose Level 229 mg/dL (74-106); Potassium 4.3 mEq/L (3.5-5.1); Protein, Total 7.2 g/dL (6.4-8.2); Sodium Level 134 mEq/L (136-145)
--- NOTE | 2023-09-28 19:48 | EDPHYS ---
Physician Documentation [facility] Name: Kishor Grajeda Age: 43 yrs Sex: Male : 1980 Arrival Date: 09/28/2023 Time: 16:35 Bed 23 Private MD: ED Physician Juan Francisco Low HPI: 09/27 20:54 This 43 yrs old Black Male presents to ER via Ambulatory with complaints of Chest Pain. kb 20:54 Patient is a 43-year-old male who presents for right-sided chest pain, shortness of kb breath and difficulty sleeping due to pain. States this started 2 to 3 days ago. Reports he had a PICC line placed in the right arm on 09/22/2023 while admitted for osteomyelitis so he could have IV antibiotics. States pain is worse with movement and palpation. Historical: - Allergies: 16:47 No Known Allergies; ko1 - PMHx: 16:47 diabetes mellitus; ko1 - PSHx: 16:47 foot surgery (diabetes mellitus ); ko1 - Immunization history:: Adult Immunizations up to date. 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 - Social history:: Smoking status: Patient denies any tobacco usage or history of. ROS: 20:54 Constitutional: As per HPI kb Exam: 20:54 Constitutional: This is a well developed, well nourished patient who is awake, alert, kb and in no acute distress. Head/Face: Normocephalic, atraumatic. ENT: Moist Mucous membranes Cardiovascular: Regular rate Respiratory: Respirations even and unlabored. No increased work of breathing. Talking in full sentences Abdomen/GI: Soft, non-tender. No distention MS/ Extremity: Pulses equal, no cyanosis. Neurovascular intact. Full, normal range of motion. Neuro: Awake and alert, GCS 15, oriented to person, place, time, and situation. Moves all extremities. Normal gait. 20:54 Chest/axilla: Inspection: normal, Palpation: tenderness, 20:54 Musculoskeletal/extremity: PICC line to right upper extremity without erythema, drainage, swelling, warmth. 20:54 Musculoskeletal/extremity: Open wounds to left foot with packing in place. Drainage noted but states it is not any more than it has been. No increased swelling or erythema. Vital Signs: 16:44 BP 144 / 76; Pulse 106; Resp 18; Temp 97.7; Pulse Ox 99% ; ko1 17:22 BP 150 / 90; Pulse 104; Resp 18; Pulse Ox 98% on R/A; Pain 8/10; ld1 17:58 BP 152 / 89; Pulse 106; Resp 18; Pulse Ox 95% on R/A; ld1 19:50 BP 145 / 68; Pulse 104; Resp 18 S; Pulse Ox 99% on R/A; ha1 22:50 BP 129 / 73; Pulse 64; Resp 17 S; Pulse Ox 99% on R/A; ha1 17:22 Pain Scale: Adult ld1 MDM: 16:40 Patient medically screened. kb 20:56 Differential diagnosis: Acute DE, PE, displaced PICC line, chest wall pain. Data kb reviewed: vital signs, nurses notes. Consideration of Admission/Observation Patient was admitted/placed on observation. Escalation of care including admission/observation considered. Management of patient was discussed with the following: Hospitalist: Dr. Olson exacerbation for admission. Historians other than the Patient: Spouse/Significant Other: . Counseling: I had a detailed discussion with the patient and/or guardian regarding the historical points, exam findings, and any diagnostic results supporting the discharge/admit diagnosis, lab results, radiology results, the need for further work-up and treatment in the hospital. 09/27 16:49 Order name: Blood Culture Adult (2) 09/27 16:49 Order name: CBC with Diff; Complete Time: 19:18 kb 09/27 16:49 Order name: CMP; Complete Time: 19:31 kb 09/27 16:49 Order name: Lactate w/ 2H reflex if indic.; Complete Time: 19:28 kb 09/27 16:49 Order name: Protime (+inr); Complete Time: 19:20 kb 09/27 16:49 Order name: Ptt, Activated; Complete Time: 19:20 kb 09/27 17:11 Order name: D-Dimer; Complete Time: 19:20 kb 09/27 19:14 Order name: CBC Smear Scan; Complete Time: 19:18 EDMS 09/28 07:03 Order name: CBC with Automated Diff EDMS 09/28 07:13 Order name: Comprehensive Metabolic Panel EDMS 09/28 07:13 Order name: Phosphorus EDMS 09/28 07:13 Order name: Magnesium EDWV 09/28 08:28 Order name: Glucose, Ancillary Testing EDWV 09/28 11:54 Order name: Glucose, Ancillary Testing EDWV 09/27 16:49 Order name: CT Chest Wo Con; Complete Time: 17:53 kb 09/27 17:57 Order name: Chest Single View XRAY; Complete Time: 19:25 kb 09/28 11:48 Order name: NM EDWV 09/27 16:49 Order name: Accucheck; Complete Time: 17:14 kb 09/27 16:49 Order name: Cardiac monitoring; Complete Time: 17:14 kb 09/27 16:49 Order name: EKG - Nurse/Tech; Complete Time: 17:14 kb 09/27 16:49 Order name: IV Saline Lock - Large Bore; Complete Time: 19:06 kb 09/27 16:49 Order name: Labs collected and sent; Complete Time: 19:06 kb 09/27 16:49 Order name: O2 Per Protocol; Complete Time: 17:14 kb 09/27 16:49 Order name: O2 Sat Monitoring; Complete Time: 17:14 kb 09/27 16:49 Order name: Vital Signs; Complete Time: 17:14 kb 09/27 19:42 Order name: Misc. Order: pull picc line please; Complete Time: 21:45 kb Administered Medications: No medications were administered Disposition Summary: 09/28/23 19:47 Hospitalization Ordered Notes: Hospitalization Status: Observation kb Provider: Katelynn Olson Condition: Stable kb Problem: new kb Symptoms: are unchanged kb Bed/Room Type: Standard Location: Telemetry/MedSurg (observation)(09/29/23 11:34) ja1 Room Assignment: [facility](09/29/23 11:34) ja1 Diagnosis - Chest pain, unspecified kb - Elevated white blood cell count kb - Displaced PICC line kb Forms: - Medication Reconciliation Form kb - SBAR form kb - Leadership Thank You Letter kb Signatures: Dispatcher [employer] Chikis Cox FNP-C FNP-Iban Kellogg RN RN ja1 Monica Stephens RN RN vc1 Eloisa Bailey RN RN ko1 Corrections: (The following items were deleted from the chart) 16:50 16:50 BLOOD CULTURE*+BA.LAB.BRZ ordered. EDMS EDMS 16:50 16:50 CBC+H.LAB.BRZ ordered. EDMS EDMS 16:50 16:50 COMPREHENSIVE METABOLIC PANEL+C.LAB.BRZ ordered. EDMS EDMS 16:50 16:50 LACTATE+C.LAB.BRZ ordered. EDMS EDMS 16:50 16:50 PROTIME (+INR)+COAG.LAB.BRZ ordered. EDMS EDMS 16:50 16:50 PTT, ACTIVATED+COAG.LAB.BRZ ordered. EDMS EDMS 16:50 16:50 Thorax Wo Con+CT.RAD.BRZ ordered. EDMS EDMS 23:05 19:47 Telemetry/MedSurg (observation) kb [facility] 23:05 19:47 kb 1 09/28 11:34 09/27 23:05 [facility] ER HOLD [facility] ja 09/28 11:34 09/27 23:05 ERHOLD- [facility] ja
--- NOTE | 2023-09-28 19:48 | ER ---
Nurse's Notes [facility] Name: Kishor Grajeda Age: 43 yrs Sex: Male : 1980 Arrival Date: 09/28/2023 Time: 16:35 Bed 23 Private MD: Diagnosis: Chest pain, unspecified;Elevated white blood cell count;Displaced PICC line Presentation: 09/27 16:44 Chief complaint: Patient states: had picc line placed a few days ago, now having chest ko1 pain in that area, shortness of breath and difficulty sleeping. Coronavirus screen: At this time, the client does not indicate any symptoms associated with coronavirus-19. Ebola Screen: No symptoms or risks identified at this time. Initial Sepsis Screen: Does the patient meet any 2 criteria? No. Patient's initial sepsis screen is negative. Does the patient have a suspected source of infection? No. Patient's initial sepsis screen is negative. Risk Assessment: Do you want to hurt yourself or someone else? Patient reports no desire to harm self or others. Onset of symptoms is unknown. 16:44 Method Of Arrival: Ambulatory ko1 16:44 Acuity: RODRÍGUEZ 3 ko1 Triage Assessment: 16:47 General: Appears in no apparent distress. Behavior is calm, cooperative, appropriate ko1 for age. Pain: Complains of pain in anterior aspect of right upper chest. Cardiovascular: No deficits noted. Historical: - Allergies: 16:47 No Known Allergies; ko1 - PMHx: 16:47 diabetes mellitus; ko1 - PSHx: 16:47 foot surgery (diabetes mellitus ); ko1 - Immunization history:: Adult Immunizations up to date. 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 - Social history:: Smoking status: Patient denies any tobacco usage or history of. Screenin:22 [facility] ED Fall Risk Assessment (Adult) History of falling in the last 3 months, ld1 including since admission No falls in past 3 months (0 pts) Confusion or Disorientation No (0 pts) Intoxicated or Sedated No (0 pts) Impaired Gait No (0 pts) Mobility Assist Device Used No (0 pt) Altered Elimination No (0 pt) Score/Fall Risk Level 0 - 2 = Low Risk Oriented to surroundings, Maintained a safe environment, Educated pt \\T\\ family on fall prevention, incl call for assistance when getting out of bed, Assessed \\T\\ reinforced patient's understanding of fall precautions, Provided non-skid footwear, Hourly rounding (assess needs \\T\\ fall precautionary measures) done, Used ambulatory aids as needed (educated on \\T\\ assisted with), Used gait belt as appropriate. Abuse screen: Denies threats or abuse. Denies injuries from another. Abuse screen: Denies threats or abuse. Nutritional screening: No deficits noted. Tuberculosis screening: No symptoms or risk factors identified. Assessment: 17:22 Reassessment: Pt and ERP at bedside - Pt states "I do not want blood work right now, I ld1 only want the CT scan." ERP aware at this time. Waiting on CT results. General: Appears in no apparent distress. comfortable, Behavior is calm, cooperative, appropriate for age. Pain: Complains of pain in chest Pain does not radiate. Pain currently is 8 out of 10 on a pain scale. Quality of pain is described as throbbing, Pain began suddenly, Is continuous. Neuro: Level of Consciousness is awake, alert, obeys commands, Oriented to person, place, time, situation, Appropriate for age. Cardiovascular: Capillary refill < 3 seconds Patient's skin is warm and dry. Respiratory: Airway is patent Respiratory effort is even, unlabored. GI: Abdomen is round non-distended. : No signs and/or symptoms were reported regarding the genitourinary system. EENT: No signs and/or symptoms were reported regarding the EENT system. Derm: No signs and/or symptoms reported regarding the dermatologic system. Musculoskeletal: No signs and/or symptoms reported regarding the musculoskeletal system. 17:58 Reassessment: Patient appears in no apparent distress at this time. No changes from ld1 previously documented assessment. Patient and/or family updated on plan of care and expected duration. Pain level reassessed. Patient is alert, oriented x 3, equal unlabored respirations, skin warm/dry/pink. 19:50 Reassessment: Patient and/or family updated on plan of care and expected duration. Pain ha1 level reassessed. Patient is alert, oriented x 3, equal unlabored respirations, skin warm/dry/pink. 20:22 Reassessment: Patient and/or family updated on plan of care and expected duration. Pain ha1 level reassessed. Patient is alert, oriented x 3, equal unlabored respirations, skin warm/dry/pink. 21:15 Reassessment: PICC line removed from right upper arm, tip intact. Pt tolerated well. pc2 22:10 Reassessment: Patient and/or family updated on plan of care and expected duration. Pain ha1 level reassessed. Patient is alert, oriented x 3, equal unlabored respirations, skin warm/dry/pink. Vital Signs: 16:44 BP 144 / 76; Pulse 106; Resp 18; Temp 97.7; Pulse Ox 99% ; ko1 17:22 BP 150 / 90; Pulse 104; Resp 18; Pulse Ox 98% on R/A; Pain 8/10; ld1 17:58 BP 152 / 89; Pulse 106; Resp 18; Pulse Ox 95% on R/A; ld1 19:50 BP 145 / 68; Pulse 104; Resp 18 S; Pulse Ox 99% on R/A; ha1 22:50 BP 129 / 73; Pulse 64; Resp 17 S; Pulse Ox 99% on R/A; ha1 17:22 Pain Scale: Adult ld1 ED Course: 16:38 Patient arrived in ED. ra3 16:40 Chikis Gallegos FNP-C is [facility]. kb 16:40 Juan Francisco Low MD is Attending Physician. kb 16:47 Triage completed. ko1 16:47 Arm band placed on right wrist. Patient placed in an exam room, on a stretcher, on ko1 monitoring coordinator, on pulse oximetry, Patient notified of wait time. 17:14 Claire Corral, RN is Primary Nurse. ld1 17:22 Patient has correct armband on for positive identification. Placed in gown. Bed in low ld1 position. Call light in reach. Side rails up X2. cafeteria monitor on. Pulse ox on. NIBP on. Door closed. Noise minimized. Warm blanket given. 17:22 No provider procedures requiring assistance completed. Patient maintains SpO2 ld1 saturation greater than 95% on room air. 17:37 CT Chest Wo Con In Process Unspecified. EDMS 18:08 Chest Single View XRAY In Process Unspecified. EDMS 18:45 First set of blood cultures drawn by me. zm 19:00 Initial lab(s) drawn, by me, sent to lab. Inserted saline lock: 20 gauge in left zm forearm, using aseptic technique. Blood collected. Flushed with 10 mL NS. 19:00 Second set of blood cultures drawn by me. 19:06 Ptt, Activated Sent. 19:06 Protime (+inr) Sent. 19:06 Lactate w/ 2H reflex if indic. Sent. 19:06 CMP Sent. 19:06 CBC with Diff Sent. 19:06 Blood Culture Adult (2) Sent. 19:06 D-Dimer Sent. 19:47 Katelynn Olson MD is Hospitalizing Provider. kb 09/28 00:00 Provided Education on: admission. cp4 00:00 Patient admitted, IV remains in place. cp4 06:16 Warm blanket given. Pillow given. vk Administered Medications: No medications were administered Medication: 02:28 VIS not applicable for this client. cp4 Outcome: 09/27 19:47 Decision to Hospitalize by Provider. kb 09/28 00:00 Admitted to ER Hold. Please see [facility] for further documentation. cp4 Condition: stable Instructed on the need for admit, 12:42 Patient left the ED. bp Signatures: Dispatcher [employer] EDMS Chikis Gallegos, POWER LINEMAN-C POWER LINEMAN-Ckb Kings Marrero, RN RN bp Claire Corral, RN RN vandana1 Monisha Nunez Heidy, LUNA RN ha1 Eloisa Bailey RN RN ko1 Mee Camara cp4 Ruth Nava Vivian vk Coleman, Pam, RN RN pc2
--- NOTE | 2023-09-28 21:52 | P.HP ---
Certification for Inpatient With expected LOS: >2 Midnights Practitioner: I am a practitioner with admitting privileges, knowledge of patient current condition, hospital course, and medical plan of care. Services: Services provided to patient in accordance with Admission requirements found in Title 42 Section 412.3 of the Code of Federal Regulations Patient History Date of Service: 09/29/23 Reason for admission: chest pain History of Present Illness: 43-year-old male with history of diabetes , osteomyelitis presented to the emergency room earlier today with right-sided chest pain. The patient was recently admitted to the hospital and discharged September 26 2023. At that time he was diagnosed with a diabetic foot infection he left AGAINST MEDICAL ADVICE. During that visit he received a an I&D of left foot abscess. An MRI of the foot showed suspicion for osteomyelitis. During that visit he had a PICC line placed. He returned to the ER earlier today with right-sided chest pain. Imaging showed that the PICC line had moved. He also had some redness swelling and discharge from his left foot. He reports that this is unchanged from his last visit. he reports having fever > [address] Chest IMPRESSION: Mild linear opacities in both lung bases likely subsegmental atelectasis. Small bilateral pleural effusions. 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[place], lives at home with his family - Family History Father -: Diabetes - Social History Alcohol use: No CD- Drugs: No Caffeine use: Yes Review of Systems 10-point ROS is otherwise unremarkable General: Fever Musculoskeletal: Leg Pain, Foot Pain Physical Examination - Physical Exam General: Mild distress HEENT: Atraumatic, Normocephalic Neck: Supple Respiratory: Clear to auscultation bilaterally, Normal air movement Cardiovascular: Regular rate/rhythm, Edema Gastrointestinal: Soft and benign, Non-distended Musculoskeletal: Other (left foot fould odor, with discharge ) Neurological: Normal gait - Studies Laboratory Data (last 24 hrs) 09/28/23 09/28/23 09/28/23 19:00 19:00 19:00 WBC 26.10 H Hgb 7.7 L Hct 23.2 L Plt Count 311 PT 18.6 H INR 1.69 APTT 29.9 Sodium 134 L Potassium 4.3 BUN 20 H Creatinine 2.13 H Glucose 229 H Total Bilirubin 0.6 AST 13 L ALT < 14 L Alkaline Phosphatase 144 H Assessment and Plan - Problems (Diagnosis) (1) Pneumonia Current Visit: Yes Status: Acute (2) D-dimer, elevated Current Visit: Yes Status: Acute (3) Hyperosmolar non-ketotic state in type 2 diabetes mellitus Current Visit: No Status: Active (4) Anemia Current Visit: No Status: Acute (5) Osteomyelitis of foot Current Visit: No Status: Acute - Plan 43-year-old male with history of diabetes, osteomyelitis of foot, disease presents back to the ER with right-sided chest pain. #chest pain -Right-sided likely secondary to PICC line movement -Removed in the ER discomfort improved #recent picc line placement -As above #pneumonia #pleural effusion -Sats stable on room air, continue empiric vancomycin and Zosyn #elevated d dimer --Check VQ scan #DM -- Fingerstick blood sugars, sliding scale insulin --restart 70/30 #Diabetic foot ulcer #osteomyelitis -- Blood cultures ordered --Await blood cultures before placing PICC line --Continue empiric antibiotics, wound care consult #CKD -- Renal dose medications #anemia -- Could be secondary to chronic diseases, infection, kidney disease -- Will monitor, transfuse for hemoglobin less than 7 or symptoms if became symptomatic Code: full DVT: Lovenox - Advance Directives Does patient have a Living Will: No Does patient have a Durable POA for Healthcare: No
[2023-09-29] MEDS: PIPER TAZO 3.375 GM in NA CHLORIDE 0.9% 100 ML IV SCH (01:00)
[2023-09-29] MEDS: VANCOMYCIN 1.5 GM in NA CHLORIDE 0.9% 500 ML IVPB ONE (01:00)
[2023-09-29] MEDS: MORPHINE 2 MG/ML SYR IM ONE (01:08)
[2023-09-29] MEDS ORDERED: NA CHLORIDE 0.9% 100 ML ONE ×2 (01:11→09:46)
[2023-09-29] MEDS ORDERED: MORPHINE 2 MG/ML SYR ONE (01:11)
[2023-09-29] MEDS ORDERED: PIPERACIL/TAZO 3.375 GM VIAL IV ONE (01:11)
[2023-09-29] MEDS ORDERED: VANCOMYCIN 1 GM/VIAL ONE (01:59)
[2023-09-29] MEDS ORDERED: VANCOMYCIN 500 MG/VIAL ONE (02:00)
[2023-09-29] MEDS ORDERED: NA CHLORIDE 0.9% 500 ML ONE (02:00)
[2023-09-29 02:24] VITALS: BMI 24.4
[2023-09-29] MEDS ORDERED: D50W 25 GM/50 ML SYRINGE IV PRN (06:04)
[2023-09-29] MEDS: NA CHLORIDE 0.9% 1,000 ML IV SCH (06:04)
[2023-09-29] MEDS ORDERED: GLUCAGON 1 MG/VIAL IM PRN (06:04)
[2023-09-29] MEDS ORDERED: D10W 125 ML IV PRN (06:30)
[2023-09-29 07:00] LABS: Absolute Lymphocytes (CBC) 1.2 K/uL (0.7-4.9); Absolute Neutrophil 19.2 K/uL (1.8-8.0); Basophils % 0.2 % (0-1.3); Eosinophils % 0.2 % (0-4.4); Hematocrit 21.5 % (39.6-49.0); Lymphocytes % 5.5 % (15.3-44.8); MCH 28.1 pg (27.0-35.0); MCHC 32.6 g/dL (32.0-36.0); MCV 86.3 fL (80-100); Monocytes % 4.6 % (3.3-12.3); Neutrophils % 89.5 % (41.7-73.7); Platelets 251 thou/uL (152-406); RBC Red Blood Cell Count 2.49 M/uL (4.33-5.43); Red Cell Distribution Width 17.3 % (12.1-15.2)
[2023-09-29 07:09] LABS: AST/SGOT 11 U/L (15-37); Albumin 1.3 g/dL (3.4-5.0); Albumin/Globulin Ratio 0.2 (1.1-1.8); Alkaline Phosphatase 133 U/L (45-117); Anion Gap 8.4 mEq/L (5.0-15.0); BUN Blood Urea Nitrogen 20 mg/dL (7-18); Bicarbonate 25 mEq/L (21-32); Bilirubin Total 0.5 mg/dL (0.2-1.0); Globulin 5.5 g/dL (2.3-3.5); Glomerular Filtration Rate 35 ml/min (=/>90); Glucose Level 274 mg/dL (74-106); Magnesium 2.2 mg/dL (1.6-2.4); Potassium 4.4 mEq/L (3.5-5.1); Protein, Total 6.8 g/dL (6.4-8.2); Sodium Level 134 mEq/L (136-145)
[2023-09-29 07:13] LABS: ALT/SGPT < 14 U/L (16-61)
[2023-09-29] MEDS: INSULIN REGULAR (HUMAN) 100 UNIT/ML SQ SCH (07:30)
[2023-09-29] MEDS: INSULIN 70/30 100 UNITS/ML SQ SCH (08:00)
[2023-09-29] MEDS ORDERED: INSULIN REGULAR (HUMAN) 100 UNIT/ML ONE (08:38)
[2023-09-29] MEDS ORDERED: INSULIN 70/30 100 UNITS/ML SQ ONE (08:38)
[2023-09-29] MEDS: ENOXAPARIN 40 MG/0.4 ML SQ SCH (09:00)
[2023-09-29] MEDS: COLLAGENASE 30 GM OINTMENT TOP SCH (09:00)
[2023-09-29] MEDS ORDERED: CEFEPIME 1 GM in NA CHLORIDE 0.9% 100 ML IV SCH (09:00)
[2023-09-29] MEDS ORDERED: VANCOMYCIN 0.75 GM in NA CHLORIDE 0.9% 150 ML IVPB SCH (09:00)
[2023-09-29] MEDS: GENTAMICIN 100 MG/100 ML BAG 100 ML IV SCH (09:15)
[2023-09-29] MEDS ORDERED: ENOXAPARIN 40 MG/0.4 ML SQ ONE (09:46)
[2023-09-29] MEDS ORDERED: CEFAZOLIN SODIUM 2 GM/VIAL ONE (09:47)
[2023-09-29] MEDS: CEFAZOLIN SODIUM 2 GM in NA CHLORIDE 0.9% 100 ML IVPB SCH (10:00)
--- NOTE | 2023-09-29 11:48 | RAD REPORT ---
EXAM DESCRIPTION: NM - Vent Perfusion VQ Scan - 09/29/2023 11:21 am CLINICAL HISTORY: concern for PE, high D-Dimer COMPARISON: Chest Single View dated 09/28/2023 TECHNIQUE: 18.1mCi Xe-133 gas inhaled and 7.0mCi Tc-MAA IV. Planar ventilation scan was performed in posterior projection after Xe-133 gas inhalation (wash-in, e quilibrium, and wash-out phases) followed by perfusion scan with Tc-MAA IV in multiple projections. Examination is correlated with recent chest radiograph. FINDINGS: Normal ventilation with appropriate wash-out and no significant air-trapping. No mismatched segmental perfusion defect. IMPRESSION: Very low probability of acute pulmonary embolism.
--- NOTE | 2023-09-29 14:00 | P.PN ---
Date of Service: 09/29/23 Problem list Sepsis Secondary to left foot wound, recent diagnosis of osteomyelitis, recent bacteremia-MSSA Previous recent wound culture with ESBL/MSSA Elevated DDimer EULA/CKD Diabetes mellitus type [id number]-necnltvtz with hyperglycemia Normocytic anemia Sickle cell screening positive Plan Sepsis Secondary to left foot wound, recent diagnosis of osteomyelitis, recent bacteremia-MSSA Previous recent wound culture with ESBL/MSSA -Recently AMA'd from here 09/27, back with fevers, chest pain, leukocytosis -Info from dates before 09/25 are from recent hospitalization -09/17 Gram + cocci in clusters in 3 bottles, MSSA -Repeat blood cultures 09/19- No growth in 5 days -repeat blood cultures 09/23-No growth in 5 days -09/18 Wound culture results MSSA sensitive to vancomycin, ESBL sensitive to cefepime -09/20 MRI resulted Bone marrow edema at the fifth metatarsal, base of the fourth metatarsal, and at the cuboid. Given the proximity of the wound to the fifth metatarsal, osteomyelitis is suspected. Edema at the proximal fourth metatarsal and at the cuboid could reflect changes of early osteomyelitis versus degenerative changes. gas in the region of the ulceration, fluid collection with gas between first and second metatarsal and dorsal to the second metatarsal could represent abscesses. -09/22 wound anerobic cultures White blood cells, no organism seen, 1+ mixed sam -General surgery consulted, debridement performed 09/19/2023, and incision and drainage performed 09/23/23 -Daily wound packing with 1/2" plain packing with vashe damp, then cover with dry kerlix, MIKA, elevate -Had been arranged to receive 6 weeks total IV antibiotics at [facility] on 09/25 -Reports he was compliant with abx but running fevers, tmax 102. -WBC increased from DC -Repeat Blood cultures ordered 09/27-will follow -Antibiotics broadened to ancef and gent based on previous cultures -General surgery consulted for additional input -ID consulted -Will need new PICC as previous one migrated and was misplaced -Holding off on PICC until bacteremia ruled out Elevated DDimer VQ very low probability for PE EULA/CKD ANCA positive, may need renal biopsy in the future Similar to previous admission renal function Nephrology consulted and following Diabetes mellitus type 2zjp-fsqfbia-nihymvasg with hyperglycemia -ACHS Accu-Chek Normocytic anemia Sickle cell screening positive -Near baseline hemoglobin, continue to monitor -Had a positive sickle cell screening test during last admission in 2021 -Would need further confirmatory testing with electrophoresis-likely outpatient -Iron studies ordered-would want to avoid iron supplementation in acute infection and also sickle cell to avoid iron overload DVT PPX: heparin subq Code status: Full Discharge Plan: Home Plan to discharge in: >2 days
--- NOTE | 2023-09-29 16:31 | CON ---
Date of Consultation: 09/29/2023 Reason For Consultation: Elevated BUN and creatinine. History Of Present Illness: This is a 43-year-old gentleman with significant past medical history of diabetes complicated with neuropathy, osteomyelitis, chronic kidney disease with acute kidney injury recently, questionable of ANCA induced, positive ANCA test. The patient recently discharged from the hospital last week with osteomyelitis. Patient had started having pain in the chest from the port. The patient had dislodged his port. The patient's kidney function stayed stable. Patient had fever. Past Medical History: Includes: 1. Diabetes, complicated with neuropathy. 2. Chronic kidney disease. 3. Hypertension. 4. Osteomyelitis. Home Medications: Include vancomycin, glimepiride, insulin, hydrocodone. Allergies: NO KNOWN DRUGS ALLERGY. Family History: Positive for diabetes, chronic kidney disease. Social History: Denied smoking. Denied drinking. Denied drugs abuse. Review of Systems: Head and Neck: No red eye. No ear pain. GI: No nausea. No vomiting. : No polyuria. No dysuria. No hematuria. Milk Hauler: Not applicable. Respiratory: No shortness of breath. Cardiovascular: Has chest pain. Endocrine: No polydipsia. Skin: No rash. Neuro: Has neuropathy. Musculoskeletal: Has foot pain. Physical Examination: General: When I saw the patient, patient lying in bed, comfortable, not on any distress. Vital Signs: Blood pressure 128/70, pulse of 92, afebrile. Chest: Clear to auscultation. Heart: S1, S2. Regular. Abdomen: Soft, nontender. Extremity: Dressing on the left foot with the swelling. Laboratory Data: WBC 21.4, hemoglobin of 7. Upon discharge from the hospital, sodium 138, potassium 4.3, bicarb 23, BUN 18, creatinine 2, GFR of 40. Today lab data: Sodium 134, potassium 4.4, bicarb 25, BUN 20, creatinine 2.2, GFR of 35, calcium 7.7, phosphorus 3, magnesium 2.2, albumin of 1.3. PC ratio 1.1. Current Medications: In the hospital include cefazolin, gentamicin, vancomycin, morphine. Assessment And Plan: 1. Acute kidney injury on chronic kidney disease. Positive ANCA with the presence of blood culture positive. I am going to be hesitant to repeat kidney biopsy currently. We will follow up repeated blood culture. If blood culture negative, at that time, we will proceed with the kidney biopsy. 2. Osteomyelitis. The patient on the vancomycin and on gentamicin. I am going to send for gentamicin level and we will follow up. 3. Chronic kidney disease with acute kidney injury, as above. We will follow up level for vancomycin and gentamicin. We will monitor the patient. 4. Hypertension, controlled, optimal. Continue to monitor off blood pressure medication. Avoid MIKA inhibitor and ARB. 5. Diabetes, as by primary. 6. Hyponatremia secondary to renal failure, stable. Time spent examining the patient ebdz-[id number] reviewing data lab and the radiology placing orders discussing the case with the patient discussing the case with the cafe team member including hospitalist and nursing staff more than 75 minutes KANDY Voice ID: [id number] Report ID: [id number] MTDD
--- NOTE | 2023-09-29 18:55 | CON ---
Date of Consultation: 09/29/2023 Reason For Service: Left foot cellulitis and purulent discharge. History Of Present Illness: This is the case of a 43-year-old patient known by me in the past since we treated his right foot. This area has healed. It is doing great. He was to go into the [facility] and noticed now he has a new wound on the left side. He has been treated by one of the surgeons in the area for the last few weeks. Last time was about 3 or 4 days ago, he was taken to [facility], but he came today with the chest pain, found to have some issues with the PICC line. Also the y consulted me since the wound was getting worse and is still draining. The hospitalist asked me for a consult. Allergies: NONE. Medical Problems: Btm-fqbfdgr-hpuejnsfq diabetes, anemia, sickle cells. Past Surgical History: Include previous left and right foot debridements. Family History: Diabetes. Social History: He does not smoke. He does not drink alcohol, Review of Systems: See HPI. Once again, left foot with the purulent discharge coming from it. He is doing the packing, but has still some cavities with pus. Physical Examination: Vital Signs: Reviewed. General: Patient is awake and alert. No distress. HEENT: Pupils are equal and reactive. Anicteric. Neck: Supple. Chest: Clear. Heart: S1, S2. Abdomen: Soft and depressible. Extremities: The right foot is intact. It is completely healed. The left foot shows there are mult iple open areas on the dorsum of the foot and lateral aspect. There is some packing there but when I removed the packing, pus is pouring out. I noted there were some few areas that need to be drained and debrided and those were the cavities that are draining pus. Laboratory Data: Blood work shows a WBC count of 26 with hemoglobin of 7, platelets of 311. INR is 1.69, creatinine is 2.13. Assessment: This 43-year-old patient with infected necrotic ulcers of left foot, puses dripping out of that foot. So we are going to offer him a debridement of the left foot infected ulcers with benef its, alternatives, and risks including, but not limited to, infection, bleeding, damage to adjacent s tructures, anesthesia complication, recurrence, IL, and even . He also understands the importan ce of doing dressing changes and controlling his glucose. ANILA/JAYNA Voice ID: [id number] Report ID: [id number]
[2023-09-29] MEDS: HYDROCODONE/APAP 5/325 MG TAB PO PRN (21:13)
[2023-09-30] MEDS ORDERED: VANCOMYCIN 1.5 GM in NA CHLORIDE 0.9% 500 ML IVPB SCH
[2023-09-30 07:16] LABS: Hemoglobin 6.9 g/dL (13.6-17.9); MCH 28.2 pg (27.0-35.0); MCHC 32.7 g/dL (32.0-36.0); MCV 86.2 fL (80-100); MPV 6.8 fL (7.6-11.3); Platelets 270 thou/uL (152-406); RBC Red Blood Cell Count 2.43 M/uL (4.33-5.43); Red Cell Distribution Width 17.4 % (12.1-15.2)
[2023-09-30 07:31] LABS: Albumin 1.3 g/dL (3.4-5.0); Anion Gap 9.1 mEq/L (5.0-15.0); Phosphorus 3.2 mg/dL (2.5-4.9); Potassium 4.1 mEq/L (3.5-5.1)
--- NOTE | 2023-09-30 08:25 | RAD REPORT ---
EXAM DESCRIPTION: US - UPPER EXTREMITY VENOUS UNILATE - 09/30/2023 7:42 am CLINICAL HISTORY: R/O DVT Arm pain and swelling COMPARISON: No comparisons FINDINGS: Right upper extremity venous system was interrogated with Doppler technique. Moderate thro mbus is present in the right axillary, brachial and basilic veins. IMPRESSION: Positive for right upper extremity DVT as detailed.
--- NOTE | 2023-09-30 11:47 | P.PN ---
Date of Service: 09/30/23 Problem list Sepsis Secondary to left foot wound, recent diagnosis of osteomyelitis, recent bacteremia-MSSA Previous recent wound culture with ESBL/MSSA RUE PICC associated DVT EULA/CKD Diabetes mellitus type 7xar-sxzhrjy-jwvgbdwvb with hyperglycemia Normocytic anemia Sickle cell screening positive Plan Sepsis Secondary to left foot wound, recent diagnosis of osteomyelitis, recent bacteremia-MSSA Previous recent wound culture with ESBL/MSSA -Info from dates before 09/25 are from recent hospitalization -09/17 Gram + cocci in clusters in 3 bottles, MSSA -Repeat blood cultures 09/19- No growth in 5 days -repeat blood cultures 09/23-No growth in 5 days -09/18 Wound culture results MSSA sensitive to vancomycin, ESBL sensitive to cefepime -09/20 MRI resulted Bone marrow edema at the fifth metatarsal, base of the fourth metatarsal, and at the cuboid. Given the proximity of the wound to the fifth metatarsal, osteomyelitis is suspected. Edema at the proximal fourth metatarsal and at the cuboid could reflect changes of early osteomyelitis versus degenerative changes. gas in the region of the ulceration, fluid collection with gas between first and second metatarsal and dorsal to the second metatarsal could represent abscesses. -09/22 wound anerobic cultures White blood cells, no organism seen, 1+ mixed sam -General surgery consulted, debridement performed 09/19/2023, and incision and drainage performed 09/23/23 -Daily wound packing with 1/2" plain packing with vashe damp, then cover with dry kerlix, MIKA, elevate -Had been arranged to receive 6 weeks total IV antibiotics at [facility] on 09/25 -Reports he was compliant with abx but running fevers, tmax 102. -WBC improved -Repeat Blood cultures ordered 09/27-No growth in 24 hours -Antibiotics broadened to ancef and gent based on previous cultures -Planned for additional debridement today with Dr. Nunez -ID consulted RUE PICC associated DVT VQ very low probability for PE RUE US Shows + for DVT Will need to start on anticoagulation after cleared by surgery S/P debridement EULA/CKD ANCA positive, may need renal biopsy in the future Similar to previous admission renal function Nephrology consulted and following Diabetes mellitus type 1zbj-enozdpx-qlmvzitgm with hyperglycemia -ACHS Accu-Chek Normocytic anemia Sickle cell screening positive -Near baseline hemoglobin, continue to monitor -Had a positive sickle cell screening test during last admission in 2021 -Would need further confirmatory testing with electrophoresis-likely outpatient -Iron studies ordered-would want to avoid iron supplementation in acute infection and also sickle cell to avoid iron overload DVT PPX: lovenox, will need therapuetic anticoagulation for RUE DVT Code status: Full Discharge Plan: Home Plan to discharge in: >2 days
[2023-09-30] MEDS ORDERED: NA CHLORIDE 0.9% 250 ML IV SCH (13:00)
--- NOTE | 2023-09-30 13:35 | EKG ---
Test Date: 2023-09-28 Test Time: 17:08:40 Retail Loan Officer: Khanh WEN MEASUREMENT RESULTS: Intervals: Rate: 105 SC: 116 QRSD: 78 QT: 334 QTc: 441 [place]: P: SC: 116 QRS: 142 T: -2 INTERPRETIVE STATEMENTS: Suspect arm lead reversal, interpretation assumes no reversal Sinus tachycardia Lateral infarct, age undetermined Abnormal ECG Compared to ECG 09/18/2023 15:49:17 Myocardial infarct finding now present Sinus rhythm no longer present T-wave abnormality no longer present Prolonged QT interval no longer present Electronically Signed On 09-30-23 13:31:59 CDT by Satinder Fernando
[2023-09-30] MEDS ORDERED: propofoL 200 MG/20 ML VIAL IV ONE (14:26)
[2023-09-30] MEDS ORDERED: LIDOCAINE 1% MPF 5 ML VIAL ONE (14:26)
[2023-09-30] MEDS ORDERED: FENTANYL CITR 100 MCG/2 ML ONE (14:26)
[2023-09-30] MEDS ORDERED: MIDAZOLAM HCL 2 MG/2 ML INJ ONE (14:27)
--- NOTE | 2023-09-30 15:36 | P.BOP ---
Preoperative diagnosis: left foot osteomyelitis, infected necrotic wounds Postoperative diagnosis: sme Primary procedure: 1. Excisional debridement dorsal left foot down to muscle [id number] Secondary procedure: 2. Excisional debridement lateral left foot down to muscle [id number] Estimated blood loss: <10cc Findings: see dicta Anesthesia: General Complications: None Transferred to: Recovery Room Condition: Good
[2023-09-30 15:53] VITALS: O2SAT 96
[2023-09-30] MEDS: ACETAMINOPHEN 500 MG TAB PO PRN (20:45)
--- NOTE | 2023-10-01 01:07 | PN ---
Date of Progress Note: 09/30/2023 Chief Complaint: Nephrology consultation is requested for elevated BUN and creatinine level. History Of Present Illness: The patient is a 43-year-old man with past medical history significant f or diabetes mellitus, complicated by neuropathy, osteomyelitis, diabetic foot infection. He has hist ory of acute kidney injury. Recently, he was found to have positive test for ANCA and is to have kid cassidy biopsy, although due to ongoing infection, he is admitted for debridement and had surgery today. He has significant wound complication with osteomyelitis in his foot. Renal function somewhat has i mproved during previous admission when he came with infected lower extremity wound and was started on IV fluids. He has history of diabetes mellitus, and he denies previous history of kidney complicati on, although review of medical records show that he has acute kidney injury secondary to uncontrolled diabetes and did not require dialysis. Review of Systems: Denies chest pain, palpitation. Physical Examination: Lungs: Clear to auscultation bilaterally. Heart: S1, S2. Abdomen: Soft, benign. Extremities: Dressing in place. Laboratory Data: Creatinine level 2, BUN 18. Estimated GFR 40. Calcium 7.7, phosphorus 3, magnesiu m 2.2. Albumin 1.3. Impression And Plan: 1.Acute kidney injury. Serum creatinine level was up to 2.2, BUN 20, positive ANCA. The patient ma y need renal biopsy, although due to ongoing infection, biopsy is on hold. Blood culture will be obt ained to rule out bacteremia and when if blood culture negative, biopsy will be considered during thi s admission or after the patient is discharged, this can be done outpatient. 2.Osteomyelitis. Continue vancomycin and gentamicin. Monitor gentamicin and vancomycin level. 3.Chronic kidney disease with acute kidney injury. Monitor vancomycin and gentamicin level. Avoid nonsteroidal anti-inflammatory medication. 4.Hypertension. Blood pressure controlled. Avoid MIKA inhibitor as well as angiotensin receptor blo cker. 5.Hyponatremia secondary to renal failure, stable. The patient is asymptomatic. EB/MODL Voice ID: [id number] Report ID: [id number]
[2023-10-01 08:35] LABS: Hematocrit 22.1 % (39.6-49.0); Hemoglobin 7.4 g/dL (13.6-17.9); MCH 28.7 pg (27.0-35.0); MCHC 33.5 g/dL (32.0-36.0); MCV 85.7 fL (80-100); MPV 6.9 fL (7.6-11.3); Platelets 238 thou/uL (152-406); RBC Red Blood Cell Count 2.57 M/uL (4.33-5.43); Red Cell Distribution Width 17.1 % (12.1-15.2)
[2023-10-01] MEDS: ENOXAPARIN 80 MG/0.8 ML SQ SCH (08:43)
[2023-10-01] MEDS: Mupirocin NASAL 2 APPL/1 GM TUBE NAS SCH (08:43)
[2023-10-01 08:52] LABS: Albumin 1.3 g/dL (3.4-5.0); Anion Gap 10.2 mEq/L (5.0-15.0); Phosphorus 3.2 mg/dL (2.5-4.9); Potassium 4.2 mEq/L (3.5-5.1)
--- NOTE | 2023-10-01 11:13 | P.PN ---
Date of Service: 10/01/23 Problem list Sepsis Secondary to left foot wound, recent diagnosis of osteomyelitis, recent bacteremia-MSSA Previous recent wound culture with ESBL/MSSA RUE PICC associated DVT EULA/CKD Diabetes mellitus type 0rrm-habneki-atohepfzj with hyperglycemia Normocytic anemia Sickle cell screening positive Plan Sepsis Secondary to left foot wound, recent diagnosis of osteomyelitis, recent bacteremia-MSSA Previous recent wound culture with ESBL/MSSA -Info from dates before 09/25 are from recent hospitalization -09/17 Gram + cocci in clusters in 3 bottles, MSSA -Repeat blood cultures 09/19- No growth in 5 days -repeat blood cultures 09/23-No growth in 5 days -09/18 Wound culture results MSSA sensitive to vancomycin, ESBL sensitive to cefepime -09/20 MRI resulted Bone marrow edema at the fifth metatarsal, base of the fourth metatarsal, and at the cuboid. Given the proximity of the wound to the fifth metatarsal, osteomyelitis is suspected. Edema at the proximal fourth metatarsal and at the cuboid could reflect changes of early osteomyelitis versus degenerative changes. gas in the region of the ulceration, fluid collection with gas between first and second metatarsal and dorsal to the second metatarsal could represent abscesses. -09/22 wound anerobic cultures White blood cells, no organism seen, 1+ mixed sam -General surgery consulted, debridement performed 09/19/2023, and incision and drainage performed 09/23/23 -Daily wound packing with 1/2" plain packing with vashe damp, then cover with dry kerlix, MIKA, elevate -Had been arranged to receive 6 weeks total IV antibiotics at [facility] on 09/25 -Reports he was compliant with abx but running fevers, tmax 102. -WBC improved -Repeat Blood cultures ordered 09/27-No growth in 24 hours -Antibiotics broadened to ancef and gent based on previous cultures -Had additional debridement on 09/[address] Nunez -Await wound cultures/fluid cultures from debridement to further tailor antibiotics -ID consulted RUE PICC associated DVT VQ very low probability for PE RUE US Shows + for DVT Cleared with surgery to start anticoagulation for DVT Will start Lovenox today 09/30 Will arrange for left upper extremity PICC line to be placed for long-term antibiotic use EULA/CKD ANCA positive, may need renal biopsy in the future Similar to previous admission renal function Nephrology consulted and following Diabetes mellitus type 4bdo-zvnoarz-gwktlsint with hyperglycemia -ACHS Accu-Chek Normocytic anemia Sickle cell screening positive -Given 1 unit PRBC on 09/29 -Monitor H&H daily -Near baseline hemoglobin, continue to monitor -Had a positive sickle cell screening test during last admission in 2021 -Would need further confirmatory testing with electrophoresis-likely outpatient -Iron studies ordered-would want to avoid iron supplementation in acute infection and also sickle cell to avoid iron overload DVT PPX: Therapeutic Lovenox Code status: Full Discharge Plan: Home Plan to discharge in: >2 days
[2023-10-01] MEDS: GENTAMICIN 80 MG/100 ML BAG 80 MG/100 ML BAG IV SCH (13:05)
--- NOTE | 2023-10-01 17:04 | PN ---
Date of Progress Note: 10/01/2023 Subjective: The patient was admitted to the hospital with acute kidney injury and osteomyelitis. The patient had positive ANCA. The patient started on antibiotic. Physical Examination: Vital Signs: Blood pressure 143/78, pulse of 93, afebrile. Chest: Clear to auscultation. Heart: S1, S2 regular. Abdomen: Soft, nontender. Extremities: Dressing on the feet. No edema. Neurologic: Alert. No focality. Labs: Hemoglobin 7.4. Sodium 137, potassium 4.2, bicarb 21, BUN 16, creatinine 2.1, GFR of 38. Calcium 7.8, phosphorus 3.2. Albumin 1.3, corrected calcium is 9.8. Current Medications: The patient on include: 1. Cefepime. 2. Cefazolin. 3. Gentamicin. 4. Lovenox. 5. Mupirocin. 6. Insulin. 7. Hydrocodone. Assessment And Plan: 1. 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 Currently blood culture started to be on negative day 3. We will monitor blood culture, completely negative, we will proceed with kidney biopsy but mostly it is secondary to diabetes nephropathy as kidney function did not deteriorate without any specific autoimmune disease treatment. 2. Hypertension, controlled, optimal, continue current treatment. 3. Proteinuria secondary to diabetes. We will hold on MIKA inhibitor or ARB for the time being. 4. Osteomyelitis. Continue current antibiotic. 5. Diabetes, as by primary. Time spent examining the patient [id number] reviewing data lab and the radiology placing orders discussing the case with the patient discussing the case with the felt hat steamer including hospitalist and nursing staff more than 55 minutes KANDY Voice ID: [id number] Report ID: [id number] [place]
[2023-10-02] MEDS: INSULIN 70/30 100 UNITS/ML SQ SCH (08:50)
--- NOTE | 2023-10-02 09:52 | P.PN ---
Date of Service: 10/02/23 Problem list Sepsis Secondary to left foot wound, recent diagnosis of osteomyelitis, recent bacteremia-MSSA Previous recent wound culture with ESBL/MSSA RUE PICC associated DVT EULA/CKD Diabetes mellitus type 8uvk-ilnxrkz-dmocfopqn with hyperglycemia Normocytic anemia Sickle cell screening positive Plan Sepsis Secondary to left foot wound, recent diagnosis of osteomyelitis, recent bacteremia-MSSA Previous recent wound culture with ESBL/MSSA -Info from dates before 09/25 are from recent hospitalization -09/17 Gram + cocci in clusters in 3 bottles, MSSA -Repeat blood cultures 09/19- No growth in 5 days -repeat blood cultures 09/23-No growth in 5 days -09/18 Wound culture results MSSA sensitive to vancomycin, ESBL sensitive to cefepime -09/20 MRI resulted Bone marrow edema at the fifth metatarsal, base of the fourth metatarsal, and at the cuboid. Given the proximity of the wound to the fifth metatarsal, osteomyelitis is suspected. Edema at the proximal fourth metatarsal and at the cuboid could reflect changes of early osteomyelitis versus degenerative changes. gas in the region of the ulceration, fluid collection with gas between first and second metatarsal and dorsal to the second metatarsal could represent abscesses. -09/22 wound anerobic cultures White blood cells, no organism seen, 1+ mixed sam -General surgery consulted, debridement performed 09/19/2023, and incision and drainage performed 09/23/23 -Daily wound packing with 1/2" plain packing with vashe damp, then cover with dry kerlix, MIKA, elevate -Had been arranged to receive 6 weeks total IV antibiotics at [facility] on 09/25 -Reports he was compliant with abx but running fevers, tmax 102. -WBC improved -Repeat Blood cultures ordered 09/27-No growth in 24 hours -Antibiotics broadened to ancef and gent based on previous cultures -Had additional debridement on 09/[address] Nunez -Await wound cultures/fluid cultures from debridement to further tailor antibiotics-should be back today -ID consulted RUE PICC associated DVT VQ very low probability for PE RUE US Shows + for DVT Cleared with surgery to start anticoagulation for DVT Started on therapeutic Lovenox today 09/30 Will arrange for left upper extremity PICC line to be placed for long-term anti biotic use EULA/CKD ANCA positive, may need renal biopsy in the future Similar to previous admission renal function Nephrology consulted and following Diabetes mellitus type 3yen-ujogmve-jbrscbdxi with hyperglycemia -ACHS Accu-Chek Normocytic anemia Sickle cell screening positive -Given 1 unit PRBC on 09/29 -Monitor H&H daily -Near baseline hemoglobin, continue to monitor -Had a positive sickle cell screening test during last admission in 2021 -Would need further confirmatory testing with electrophoresis-likely outpatient -Iron deficient need to avoid iron supplementation in acute infection and also sickle cell DVT PPX: Therapeutic Lovenox Code status: Full Discharge Plan: Home Plan to discharge in: 1-2 days
[2023-10-02 10:16] LABS: Hemoglobin 6.9 g/dL (13.6-17.9); MCH 28.5 pg (27.0-35.0); MCHC 32.8 g/dL (32.0-36.0); MPV 7.6 fL (7.6-11.3); Platelets 222 thou/uL (152-406); RBC Red Blood Cell Count 2.41 M/uL (4.33-5.43); Red Cell Distribution Width 17.4 % (12.1-15.2)
[2023-10-02 10:45] LABS: Albumin 1.3 g/dL (3.4-5.0); Anion Gap 7.3 mEq/L (5.0-15.0); Phosphorus 2.7 mg/dL (2.5-4.9); Potassium 4.3 mEq/L (3.5-5.1)
--- NOTE | 2023-10-02 11:18 | RAD REPORT ---
EXAM DESCRIPTION: [place] Single View10/02/2023 10:57 am CLINICAL HISTORY: PICC line insertion COMPARISON: Chest Single View dated 09/28/2023; Chest Single View dated 09/22/2023; Chest Single View dated 02/15/2022; CHEST SINGLE VIEW dated 03/10/2013 TECHNIQUE: Portable AP view of the chest. FINDINGS: Left arm PICC has been placed, with catheter tip projecting at the superior cavoatrial shane ction. Stable central interstitial prominence. Suspected trace bilateral effusions. No pneumothorax. Mild cardiomegaly. Mediastinal contours are otherwise unremarkable. IMPRESSION: Satisfactory positioning of left arm PICC. Findings suggestive of CHF.
--- NOTE | 2023-10-02 12:41 | PN ---
Date of Progress Note: 10/02/2023 Subjective: The patient was admitted to the hospital with foot infection, osteomyelitis. The patient was started on antibiotic. The patient had acute kidney injury, possible secondary to diabetes nephropathy, questionable of positive ANCA. The patient planned for kidney biopsy. We are holding on the biopsy till we have final results of negative blood culture. The patient maintained on antibiotic. Objective: Vital Signs: Blood pressure 128/71, pulse of 95, afebrile. Chest: Clear to auscultation. Heart: S1, S2. Regular. Abdomen: Soft, nontender. Extremity: Dressing on the left foot. Neurologic: Alert. No focality. Laboratory Data: WBC 10.8, hemoglobin 6.9, sodium 135, potassium 4.3, bicarb 24, BUN 14, creatinine 2.1, GFR of 39, calcium 7.7, phosphorus 2.7, albumin 1.3, corrected calcium is 10. Current Medications: The patient on include cefazolin, Lovenox, Tylenol, Gentamicin. Assessment And Plan: 1. Acute kidney injury on advanced chronic kidney disease, mostly secondary to diabetes nephropathy with the presence of positive ANCA. We will plan for kidney biopsy next week. If the blood culture negative on Tuesday, we will arrange for it for Tuesday. 2. Hypertension, controlled, optimal. Continue current treatment. 3. Anemia. I am going to go ahead and send for anemia workup. The patient had iron-deficiency anemia. I am going to start the patient on IV iron. We will follow up with Primary regarding transfusion. 4. Osteomyelitis. Continue current antibiotic. Time spent examining the patient [id number] reviewing the data and clapper and the radiology placing order discussing the case with the patient discussing the case with the boilermaker central steam plant including hospitalist and nursing staff more than 55 minutes KANDY Voice ID: [id number] Report ID: [id number] [place]
[2023-10-02] MEDS: SOD FERRIC GLUC COMPLX/SUCROSE 250 MG in NA CHLORIDE 0.9% 250 ML IV SCH (13:55)
[2023-10-02] MEDS ORDERED: HYDRALAZINE HCL 20 MG/ML VIAL IV PRN (15:27)
[2023-10-02] MEDS ORDERED: GENTAMICIN SULF 80 MG/2ML INJ ONE (21:46)
[2023-10-02] MEDS: Gentamicin Inj 160 MG in NA CHLORIDE 0.9% 100 ML IV SCH (22:00)
[2023-10-02] MEDS: NA CHLORIDE 0.9% 100 ML ONE (22:00)
[2023-10-03 06:23] LABS: Hematocrit 20.9 % (39.6-49.0); Hemoglobin 7.1 g/dL (13.6-17.9); MCHC 33.9 g/dL (32.0-36.0); MCV 85.5 fL (80-100); MPV 7.2 fL (7.6-11.3); Platelets 249 thou/uL (152-406); RBC Red Blood Cell Count 2.44 M/uL (4.33-5.43); Red Cell Distribution Width 17.4 % (12.1-15.2)
[2023-10-03 07:30] LABS: Albumin 1.3 g/dL (3.4-5.0); Phosphorus 3.1 mg/dL (2.5-4.9)
[2023-10-03] MEDS: INSULIN 70/30 100 UNITS/ML SQ SCH (08:03)
[2023-10-03] MEDS: Gentamicin Inj 160 MG in NA CHLORIDE 0.9% 100 ML IV SCH (12:42)
--- NOTE | 2023-10-03 15:40 | P.PN ---
Date of Service: 10/03/23 Subjective: Anxious to be discharged Wound evaluated/dressing change with Dr. Nunez today PICC in place No acute events overnight ROS: 10 point ROS as noted above, otherwise negative Physical exam GEN: Alert, oriented, NAD HEENT: Normal conjunctiva, sclera anicteric CV: Regular rate and rhythm, no edema Pulm: Nonlabored respirations on room air ABD: Soft, nontender, nondistended MSK: No joint tenderness Integumentary: No rashes. Wound to left foot with dressing in place Neuro: Normal speech, normal affect Vitals reviewed Problem list Sepsis Secondary to left foot wound, recent diagnosis of osteomyelitis, recent bacteremia-MSSA Previous recent wound culture with ESBL/MSSA RUE PICC associated DVT EULA/CKD Diabetes mellitus type 2hsh-loiikfj-fssnxvedo with hyperglycemia Normocytic anemia Sickle cell screening positive Plan Sepsis Secondary to left foot wound, recent diagnosis of osteomyelitis, recent bacteremia-MSSA Previous recent wound culture with ESBL/MSSA -Info from dates before 09/25 are from recent hospitalization -09/17 Gram + cocci in clusters in 3 bottles, MSSA -Repeat blood cultures 09/19- No growth in 5 days -repeat blood cultures 09/23-No growth in 5 days -09/18 Wound culture results MSSA sensitive to vancomycin, ESBL sensitive to cefepime -09/20 MRI resulted Bone marrow edema at the fifth metatarsal, base of the fourth metatarsal, and at the cuboid. Given the proximity of the wound to the fifth metatarsal, osteomyelitis is suspected. Edema at the proximal fourth metatarsal and at the cuboid could reflect changes of early osteomyelitis versus degenerative changes. gas in the region of the ulceration, fluid collection with gas between first and second metatarsal and dorsal to the second metatarsal could represent abscesses. -09/22 wound anerobic cultures White blood cells, no organism seen, 1+ mixed sam -General surgery consulted, debridement performed 09/19/2023, and incision and drainage performed 09/23/23 -Daily wound packing with 1/2" plain packing with vashe damp, then cover with dry kerlix, MIKA, elevate -Had been arranged to receive 6 weeks total IV antibiotics at [facility] on 09/25 -Reports he was compliant with abx but running fevers, tmax 102. -WBC improved -Repeat Blood cultures ordered 09/27-No growth in 24 hours -Antibiotics broadened to ancef and gent based on previous cultures -Had additional debridement on 09/[address] Nunez -Wound culture shows Enterococcus faecalis pansensitive -Body fluid culture/anaerobic culture still pending -ID consulted -Has 6 weeks of Ancef at home, was running fever got worse while on the Ancef may require adjustment/addition of antibiotics -Still pending the body fluid/anaerobic culture RUE PICC associated DVT VQ very low probability for PE RUE US Shows + for DVT Cleared with surgery to start anticoagulation for DVT Started on therapeutic Lovenox 09/30 Will need Rx for Eliquis/Xarelto at discharge Will arrange for left upper extremity PICC line to be placed for long-term antibiotic use EULA/CKD ANCA positive, may need renal biopsy in the future Similar to previous admission renal function Nephrology consulted and following Diabetes mellitus type 6rtt-nhpvnuq-ztgsaslxl with hyperglycemia -ACHS Accu-Chek Normocytic anemia Sickle cell screening positive -Given 1 unit PRBC on 09/29 -Monitor H&H daily -Near baseline hemoglobin, continue to monitor -Had a positive sickle cell screening test during last admission in 2021 -Would need further confirmatory testing with electrophoresis-likely outpatient -Started on IV iron 10/01 by nephrology DVT PPX: Therapeutic Lovenox Code status: Full Discharge Plan: Home Plan to discharge in: 1-2 days Time Spent Managing Pts Care (In Minutes): 35
--- NOTE | 2023-10-03 20:29 | PN ---
Date of Progress Note: 10/03/2023 Chief Complaint: Acute on chronic kidney injury. The patient was admitted to the hospital for foot infection, osteomyelitis. He was started on IV ant ibiotics. The patient has acute kidney injury, possibly due to uncontrolled diabetes and prerenal az otemia in the setting of sepsis and resulted in acute tubular necrosis. The patient was found to hav e positive ANCA and is to have a kidney biopsy when blood culture is done and finalized to rule out b acteremia and wound culture is positive. Patient is on maintenance antibiotics. Review of Systems: Denies chest pain, palpitation. Physical Examination: Lungs: Clear to auscultation bilaterally. Heart: S1, S2. Abdomen: Soft, benign. Extremities: Dressing over the left foot. Neurological: Alert. No focal findings. Laboratory Data: BUN is 14, creatinine 2.1, calcium 7.7, phosphorus 2.7, albumin 1.3, corrected calc ium is 10, hemoglobin 6.9, WBC 10.8. Impression And Plan: 1.Acute kidney injury. The patient has underlying chronic kidney disease. Chronic kidney disease mo stly related to diabetic nephropathy, although there is a presence of positive ANCA and plan is to pr oceed with kidney biopsy this week as soon as blood culture is negative. Wound culture showed growth and patient is on broad-spectrum antibiotics. The patient is on gentamicin. Continue to monitor ge ntamicin toxicity panel. 2.Hypertension, controlled optimally. MIKA inhibitor is on hold due to acute kidney injury. 3.Anemia. The patient has history of iron deficiency anemia and patient may benefit from IV iron. Currently, patient is treated with antibiotics. Continue current treatment. 4.Osteomyelitis. Wound care and antibiotic therapy. Continue as before. ISIS/MODL Voice ID: [id number] Report ID: [id number]
[2023-10-03 20:32] VITALS: BP 189/90
[2023-10-04 06:09] LABS: Potassium 4.2 mEq/L (3.5-5.1)
[2023-10-04 06:10] LABS: Albumin 1.2 g/dL (3.4-5.0)
[2023-10-04 06:11] LABS: Anion Gap 7.2 mEq/L (5.0-15.0)
[2023-10-04 06:13] LABS: Hematocrit 21.5 % (39.6-49.0); Hemoglobin 7.1 g/dL (13.6-17.9); MCH 28.4 pg (27.0-35.0); MCHC 32.9 g/dL (32.0-36.0); MCV 86.2 fL (80-100); MPV 7.2 fL (7.6-11.3); Phosphorus 3.2 mg/dL (2.5-4.9); Platelets 233 thou/uL (152-406); RBC Red Blood Cell Count 2.49 M/uL (4.33-5.43); Red Cell Distribution Width 17.3 % (12.1-15.2)
[2023-10-04 11:36] VITALS: TEMP 98
[2023-10-04] MEDS: VANCOMYCIN 1.5 GM in NA CHLORIDE 0.9% 500 ML IVPB SCH (13:47)
[2023-10-04] MEDS: Meropenem 1,000 MG in NA CHLORIDE 0.9% 100 ML IV SCH (13:47)
--- NOTE | 2023-10-04 16:50 | CON ---
History Of Present Illness: This is a 43-year-old male I was consulted for management of osteomyelit is, on antibiotics; fevers; and leukocytosis. The patient was initially admitted to the hospital on September 28, 2023. His initial symptoms on admission included chest discomfort. The patient has signifi cant past medical history of diabetes mellitus, osteomyelitis, came in with right-sided chest pain to the hospital. He was recently admitted to the hospital when he decided to leave against medical adv ice while he was getting treated for diabetic foot infection. The patient is feeling slightly better . He reported a fever of 102 at home. The patient was admitted with sepsis secondary to left foot w ound and osteomyelitis and recent bacteremia secondary to MSSA. The patient is currently being treat ed with cefazolin. Previous wound cultures also had ESBL and MSSA. PICC line with deep venous throm bosis, acute kidney injury with chronic kidney injury, diabetes mellitus type 2, anemia, and sickle c ell screening is positive. Past Medical History: As per HPI. Social History: Nonsmoker, nondrinker. Family History: Noncontributory. Medications: Cefazolin. See MAR for other medications. Allergies: NO KNOWN DRUG ALLERGIES. Review of Systems: A 10-point review was performed. Physical Examination: General: This is a 43-year-old male, lying in bed, not in any acute cardiopulmonary distress. Vital Signs: Temperature 99, pulse 74, respirations 18, blood pressure 189/90. HEENT: Unremarkable. Neck: Supple. Lungs: Basal crackles. Heart: S1, S2. Regular. Abdomen: Soft, nontender. Bowel sounds present. Extremities: Foot wound noted, status post debridement. Laboratory Data: WBC 9.1, hemoglobin 7.1, platelets are 233. Chemistry shows BUN of 17, creatinine 2, glucose is 148. Albumin level is 1.2. Chest x-ray done day before yesterday shows good positioni ng of left arm PICC line and signs of THS. Assessment And Plan: Left foot osteomyelitis, status post debridement in a 43-year-old male with sig nificant history of osteomyelitis and recent bacteremia secondary to MSSA. Recommend to continue ant ibiotic for 6 weeks total wound management as per surgical team. Monitor diabetes mellitus. Monitor kidney function. Nutritional support as patient has very low albumin level. Continue current treat ment for 6 weeks. Monitor for signs of infection. Wound care per surgical team. Thank you for consult. LUIS Voice ID: [id number] Report ID: [id number]
--- NOTE | 2023-10-04 17:04 | PN ---
Date of Progress Note: 10/04/2023 Subjective: Patient was admitted to the hospital with acute kidney injury on advanced chronic kidney disease with foot osteomyelitis. Patient had workup from the previous admission with positive ANCA. Kidney function did not deteriorate even though without inducing any special treatment for ANCA-ind uced, the titer for ANCA was really low. Physical Examination: Vital Signs: Blood pressure 189/90, pulse 83, afebrile. Chest: Clear to auscultation. Heart: S1, S2 regular. Abdomen: Soft, nontender. Extremity: Dressing on the left foot. Neurologic: Alert. No focality. Laboratory Data: WBC 9.1, hemoglobin 7.1. Sodium 134, potassium 4.2, bicarb 26, BUN 17, creatinine 2, GFR 41, calcium 7.8, phosphorus 3.2, albumin 1.2, corrected calcium 10.4. Current Medications: Patient is on include IV iron, Lovenox, Naprosyn, insulin. Assessment And Plan: 1.Acute kidney injury on chronic kidney disease. Doubt to be ANCA-induced nephritis, as the titer i s low and kidney function has stabilized. I can go ahead and repeat ANCA titer. I had long discussi on with the patient regarding risks, benefits, alternatives regarding the kidney biopsy with the util ity of the finding. Patient agreed. We will hold on the kidney biopsy for the time being and we vanessa l follow up the patient. 2.Hypertension, not controlled. I can go ahead and start the patient on carvedilol and amlodipine, and we will follow up the patient. We will consider adding MIKA inhibitor or ARB after stabilizing th e kidney function. 3.Diabetes, as by primary. 4.Osteomyelitis. Culture grew Enterococcus faecalis. Follow up ID. Patient can be placed on levof loxacin if okay with ID. NITA/JAYNA Voice ID: [id number] Report ID: [id number]
[2023-10-04] MEDS: carvediloL 12.5 MG TAB PO SCH (18:00)
--- NOTE | 2023-10-04 18:22 | P.DS ---
Admission Date: 09/28/23 Discharge Date: 10/04/23 Disposition: ROUTINE DISCHARGE Discharge Condition: FAIR Reason for Admission: chest pain Brief History of Present Illness: 43-year-old male with history of diabetes , osteomyelitis, chronic left foot ulcer presented to the emergency room earlier today with right-sided chest pain. The patient was recently admitted to the hospital and discharged September 26 2023. At that time he was diagnosed with a diabetic foot infection he left AGAINST MEDICAL ADVICE. During that visit he received a an I&D of left foot abscess. An MRI of the foot showed suspicion for osteomyelitis. During that visit he had a PICC line placed. He returned to the ER earlier today with right-sided chest pain. Imaging showed that the PICC line had moved. He also had some redness swelling and discharge from his left foot. He reports that this is unchanged from his last visit. he reports having fever > 102 degrees at home. Patient was evaluated in the ED and noted to have leukocytosis. Patient was h ospitalized for further management. Hospital Course: Diagnosis Sepsis Secondary to left foot wound, recent diagnosis of osteomyelitis, recent bacteremia-MSSA Wound infection with ESBL E. coli, MSSA and Enterococcus RUE PICC associated DVT EULA/CKD Diabetes mellitus type 4izi-[id number]-fauifispk with hyperglycemia Normocytic anemia Sickle cell screening positive Patient admitted to the medical floor and the following medical problems addressed: Sepsis Secondary to left foot wound, recent diagnosis of osteomyelitis, recent bacteremia-MSSA Wound infection with ESBL E. coli, MSSA and Enterococcus -Info from dates before 09/25 are from recent hospitalization -09/17 Gram + cocci in clusters in 3 bottles, MSSA -Repeat blood cultures 09/19- No growth in 5 days -repeat blood cultures 09/23-No growth in 5 days -09/18 Wound culture results MSSA sensitive to vancomycin, ESBL sensitive to cefepime -09/20 MRI resulted Bone marrow edema at the fifth metatarsal, base of the fourth metatarsal, and at the cuboid. Given the proximity of the wound to the fifth metatarsal, osteomyelitis is suspected. Edema at the proximal fourth metatarsal and at the cuboid could reflect changes of early osteomyelitis versus degenerative changes. gas in the region of the ulceration, fluid collection with gas between first and second metatarsal and dorsal to the second metatarsal could represent abscesses. -09/22 wound anerobic cultures White blood cells, no organism seen, 1+ mixed sam -General surgery consulted, debridement performed by Dr. Hassan 09/19/2023, and another incision and drainage performed 09/23/23 -Daily wound packing with 1/2" plain packing with vashe damp, then cover with dry kerlix, MIKA recommended -Had been arranged to receive 6 weeks total IV antibiotics. Patient left AGAINST MEDICAL ADVICE but received IV Ancef for a couple of days before returning to the ED. -Reports he was compliant with abx but running fevers, tmax 102. -Repeat Blood cultures ordered 09/27-No growth in 24 hours -Patient placed on Ancef and gentamicin added during the hospital stay -Had additional debridement on 09/[address] Nunez. -Repeat wound culture grew Enterococcus faecalis which is pansensitive -ID consulted, patient was seen by Dr. Viera who initially recommended vancomycin and meropenem and avoid the risk of nephrotoxicity with gentamicin. -Patient has declined both vancomycin and gentamicin stating the reason that both can harm his kidney and want to avoid them at all cost. -He was also adamant on being discharged today and would not want to stay another night. -Patient was adamant on continuing on the previous antibiotic, arguing that he was still sick because his wound was not properly cleaned by the previous surgeon. He feels his wound has now been effectively cleaned by Dr. Nunez and wants to continue with previous antibiotics. -The issue was discussed with Dr. Nunez and Dr. Viera who concurred patient wound is quite clean now. -I had a conversation with the patient and Dr. Viera on the phone, patient requested that he continues the Ancef. Dr. Viera recommended he can continue the Ancef as long as he has close follow-up so his antibiotics can be changed timely. -I reached out to patient's PCP-Dr. Ang who was agreed to follow-up with the patient and planning referral to podiatry and [facility] wound care clinic. -Patient is discharged today per his request RUE PICC associated DVT VQ very low probability for PE RUE US Shows + for DVT Patient started on full dose Lovenox and transitioned to oral Eliquis on discharge. Because his right upper extremity PICC line was displaced, it was removed and a new PICC line placed on the left. EULA/CKD ANCA positive, may need renal biopsy in the future Similar to previous admission renal function Nephrology evaluated the patient. Diabetes mellitus type 6orb-[id number]-jskhlkvgv with hyperglycemia -Managed with ACHS Accu-Chek, Novolin 70/30. Normocytic anemia Sickle cell screening positive -Given 1 unit PRBC on 09/29 -Had a positive sickle cell screening test during last admission in 2021 -Would need further confirmatory testing with electrophoresis-likely outpatient -Started on IV iron 10/01 by nephrology. -Patient discharged with oral iron supplementation. -Follow-up with nephrology as outpatient Vital Signs/Physical Exam: Temp Pulse Resp BP Pulse Ox 98 F 86 16 189/90 H 96 10/04/23 16:00 10/04/23 16:00 10/04/23 16:00 10/03/23 20:00 10/04/23 16:00 General: Alert, In no apparent distress, Oriented x3 HEENT: Mucous membr. moist/pink Neck: Supple, JVD not distended Respiratory: Clear to auscultation bilaterally, Normal air movement Cardiovascular: No edema, Regular rate/rhythm, Normal S1 S2 Gastrointestinal: Normal bowel sounds, Soft and benign, Non-distended Musculoskeletal: Other (Left foot with clean dressing.) Neurological: Normal strength at 5/5 x4 extr, Cranial nerves 3-12 intact Laboratory Data at Discharge: WBC 9.10 thou/uL (4.3-10.9) 10/04/23 05:06 Hgb 7.1 g/dL (13.6-17.9) L 10/04/23 05:06 Hct 21.5 % (39.6-49.0) L 10/04/23 05:06 Plt Count 233 thou/uL (152-406) 10/04/23 05:06 PT 18.6 SECONDS (9.4-12.5) H 09/28/23 19:00 INR 1.69 09/28/23 19:00 APTT 29.9 SECONDS (24.3-36.9) 09/28/23 19:00 Sodium 134 mEq/L (136-145) L 10/04/23 05:06 Potassium 4.2 mEq/L (3.5-5.1) 10/04/23 05:06 BUN 17 mg/dL (7-18) 10/04/23 05:06 Creatinine 2.00 mg/dL (0.70-1.30) H 10/04/23 05:06 Glucose 154 mg/dL (74-106) H 10/04/23 05:06 Phosphorus 3.2 mg/dL (2.5-4.9) 10/04/23 05:06 Magnesium 2.2 mg/dL (1.6-2.4) 09/29/23 06:37 Total Bilirubin 0.5 mg/dL (0.2-1.0) 09/29/23 06:37 AST 11 U/L (15-37) L 09/29/23 06:37 ALT < 14 U/L (16-61) L 09/29/23 06:37 Alkaline Phosphatase 133 U/L (45-117) H 09/29/23 06:37 Home Medications: Collagenase [Santyl Ointment*] 1 appl TOP DAILY 14 Days #1 tube 02/18/22 Insulin 70/30 NPH/Reg Human [Novolin 70/30*] 20 unit SQ BID 30 Days #12 ml 02/18/22 Glimepiride 2 mg PO BIDWM 09/24/23 Amlodipine [Norvasc*] 10 mg PO DAILY #30 tab 10/04/23 Apixaban [Eliquis] 5 mg PO DIRECTED #74 tab 10/04/23 Docusate [Colace Cap] 100 mg PO DAILY #30 cap 10/04/23 Hydrocodone 5/APAP 325 [Shandaken 5/325*] 1 tab PO Q8H PRN #20 tab 10/04/23 Iron Polysaccharide Complex [Ferric X-150] 150 mg PO DAILY #30 cap 10/04/23 Mupirocin Calcium [Bactroban Nasal*] 1 appl ROBERTO BID #2 tube 10/04/23 carvediloL [Coreg*] 12.5 mg PO BID 6AM 6PM #60 tab 10/04/23 levoFLOXacin [Levaquin] 750 mg PO Q48H #21 tab 10/04/23 New Medications: Mupirocin Calcium [Bactroban Nasal*] 1 appl ROBERTO BID #2 tube Docusate [Colace Cap] 100 mg PO DAILY #30 cap carvediloL [Coreg*] 12.5 mg PO BID 6AM 6PM #60 tab Apixaban [Eliquis] 5 mg PO DIRECTED #74 tab Iron Polysaccharide Complex [Ferric X-150] 150 mg PO DAILY #30 cap levoFLOXacin [Levaquin] 750 mg PO Q48H #21 tab Hydrocodone 5/APAP 325 [Shandaken 5/325*] 1 tab PO Q8H PRN #20 tab PRN Reason: Pain Amlodipine [Norvasc*] 10 mg PO DAILY #30 tab Physician Discharge Instructions: Wound care: Daily wound packing with 1/2" plain packing with vashe damp, then cover with dry kerlix, MIKA elevate leg in seated or lying position. Diet: ADA Activity: Ad lauryn Followup: Bryant Ang DO [Primary Care Provider] - 1 Week Nathaniel Sadler MD [ACTIVE - CAN ADMIT] - 1-2 Weeks Time spent managing pt's care (in minutes): 43
[2023-10-05] MEDS ORDERED: AMLODIPINE 10 MG TAB PO SCH (09:00)
--- NOTE | 2023-10-05 10:22 | OP ---
Date of Procedure: 09/30/2023 Surgeon: Jung Nunez MD Preoperative Diagnosis: Left foot osteomyelitis, infected necrotic wounds. Postoperative Diagnosis: Left foot osteomyelitis, infected necrotic wounds. Procedures: 1.Excisional debridement of dorsal left foot down to muscle, 4 x 3 x 1 cm. 2.Excisional debridement of lateral left foot down to muscle, 6 x 3 x 2 cm. Specimen: Devitalized tissue. Complications: None. We also did pulse lavage. Packing: Wet-to-dry. Indication: This is a case of a 43-year-old patient who came to us with left foot multiple necrotic ulcers, still putting purulent discharge outside, so need to be debrided. The benefits, alternatives , and risks of debridement were fully explained, which include, but not limited to, infection, bleedi ng, damage to adjacent structures, anesthesia complication, LA, and even . I know he has been s een recently by another surgeon. We have been working on the left foot. They had been taking him to surgery also. He went recently to the home and came back, but is still having some purulent dischar ge. The medical doctors are trying to re-evaluate the line of the plan of treatment. Patient was di scussed before there was also option for amputation, but he is not ready for that decision at this mo ment. Patient also advised the importance of diabetes control and even the possibility of hyperbaric treatment, once the criteria is met. He signed a consent. Description Of Procedure: The patient was brought to the operating room, placed in supine position. Anesthesia was done without complications. Left foot was prepped and draped in sterile fashion. Th ere were few areas in that region and when I pressed, pus comes out in the dorsal foot and the latera l foot region. Both of them, I had done using the same technique. What we did it, just we proceeded to remove tissue and this goes into the muscle of the dorsal foot region. There are tendons involve d. There is bone involved. We have to go between those tendons to be able to find there was pus col lection, patient had in that area. Then, we also did pulse lavage right there. Lateral foot, the sa me situation, but the more striking on the lateral foot is that the metatarsal and tarsal bones are s eparated. There was evidence of bone showing up clearly, clear view, with at least a clinical indica tion of osteomyelitis. We refused to debride the region and remove the devitalized tissue and then d o pulse lavage with several liters, trying to clean that area. After that, we packed the area. Spon ge counts and instrument counts were correct. The patient sent to recovery in stable condition. Onc e again, we explained to the family the long road ahead and the possibility of an amputation. He is not ready for that at this moment. He want to give it a try with antibiotics and the wound care. He was advised if he want to continue that service, he can also go to a specialized center [facility]. ANILA/JAYNA Voice ID: [id number] Report ID: [id number]
== END 2023-10-04 18:51 | disposition home or self-care (01) | DRG 853 ==
LOC: ER 16:35 → ERHOLD 21:07 → 2ND 09-29 12:11
PROVIDERS: ADMIT Internal Medicine; ATTEND Internal Medicine
PROC: 30233N1 Transfusion of Nonautologous Red Blood Cells into Peripheral Vein, Percutaneous Approach (ICD-10-PCS; 2023-09-30)
PROC: 0KBW0ZZ Excision of Left Foot Muscle, Open Approach (ICD-10-PCS; principal; 2023-09-30 13:45)
PROC: 02HV33Z Insertion of Infusion Device into Superior Vena Cava, Percutaneous Approach (ICD-10-PCS; 2023-10-02)
DX: A41.81 Sepsis due to Enterococcus (principal); E11.00 Type 2 diabetes mellitus with hyperosmolarity without nonketotic hyperglycemic-hyperosmolar coma (NKHHC); J18.9 Pneumonia, unspecified organism; N17.0 Acute kidney failure with tubular necrosis; T82.524A Displacement of infusion catheter, initial encounter; M86.8X7 Other osteomyelitis, ankle and foot; E87.1 Hypo-osmolality and hyponatremia; E11.52 Type 2 diabetes mellitus with diabetic peripheral angiopathy with gangrene; Z16.12 Extended spectrum beta lactamase (ESBL) resistance; I82.621 Acute embolism and thrombosis of deep veins of right upper extremity; A41.51 Sepsis due to Escherichia coli [E. coli]; A41.01 Sepsis due to Methicillin susceptible Staphylococcus aureus; E11.69 Type 2 diabetes mellitus with other specified complication; E11.621 Type 2 diabetes mellitus with foot ulcer; L97.529 Non-pressure chronic ulcer of other part of left foot with unspecified severity; I12.9 Hypertensive chronic kidney disease with stage 1 through stage 4 chronic kidney disease, or unspecified chronic kidney disease; N18.32 Chronic kidney disease, stage 3b; E11.22 Type 2 diabetes mellitus with diabetic chronic kidney disease; D63.1 Anemia in chronic kidney disease; D72.829 Elevated white blood cell count, unspecified; D50.9 Iron deficiency anemia, unspecified; D57.1 Sickle-cell disease without crisis; Z79.4 Long term (current) use of insulin; Z79.84 Long term (current) use of oral hypoglycemic drugs; Z86.14 Personal history of Methicillin resistant Staphylococcus aureus infection; Z79.899 Other long term (current) drug therapy; Y84.8 Other medical procedures as the cause of abnormal reaction of the patient, or of later complication, without mention of misadventure at the time of the procedure
CPT/HCPCS: 36415; 71045; 71250; 78582; 80053; 80069; 80170; 82947; 83605; 83735; 84100; 85018; 85025; 85027; 85379; 85610; 85730; 86850; 86900; 86901; 86920; 87040; 87070; 87075; 87077; 87186; 87205; 88304; 93005; 93971; 99285; A9540; A9558; J0360; J1580; J1650; J1815; J2001; J2185; J2250; J2270; J2543; J2704; J2916; J3010; J3590; J7030; J7040; J7050; P9016

== ENCOUNTER 2023-10-20 12:07 | Day surgery (SDC) | payer OTHER ==
[2023-10-20] MEDS ORDERED: MIDAZOLAM HCL 2 MG/2 ML INJ ONE (13:48)
[2023-10-20] MEDS ORDERED: FENTANYL CITR 100 MCG/2 ML ONE (13:50)
[2023-10-20] MEDS ORDERED: ONDANSETRON 4 MG/2 ML VIAL ONE (13:50)
[2023-10-20] MEDS ORDERED: ROCURONIUM 50 MG/5 ML VIAL IV ONE (13:50)
[2023-10-20] MEDS ORDERED: propofoL 200 MG/20 ML VIAL IV ONE (13:50)
[2023-10-20] MEDS ORDERED: LIDOCAINE 1% MPF 5 ML VIAL ONE (13:50)
[2023-10-20] MEDS ORDERED: dexAMETHasone 10 MG/ML VIAL ONE (13:51)
[2023-10-20] MEDS ORDERED: LIDOCAINE HCL/EPINEPHRINE 20 ML MDV ONE (13:56)
[2023-10-20] MEDS: VANCOMYCIN 1 GM/VIAL ONE (14:25)
[2023-10-20] MEDS: NA CHLORIDE 0.9% 250 ML ONE (14:25)
[2023-10-20] MEDS: NA CHLORIDE 0.9% 1,000 ML ONE (14:25)
--- NOTE | 2023-10-20 15:16 | P.OP ---
Preoperative diagnosis: Multiple LEFT foot chronic necrotic wounds Postoperative diagnosis: Multiple LEFT foot chronic necrotic wounds Primary procedure: Debridement of Multiple LEFT foot chronic necrotic wounds Anesthesia: GETA Estimated blood loss: <5cc Specimen: Cultures, Debridment Tissues Findings: Multiple LEFT foot chronic necrotic wounds Complications: None Transferred to: Recovery Room Condition: Good
[2023-10-20 16:45] VITALS: BP 134/87; TEMP 97.4; O2SAT 99
--- NOTE | 2023-10-20 20:18 | OP ---
Date of Procedure: 10/20/2023 Surgeon: Alberto Alarcon MD, Preoperative Diagnosis: Multiple left foot chronic necrotic wounds. Postoperative Diagnosis: Multiple left foot chronic necrotic wounds. Procedure Performed: Debridement of multiple left foot chronic necrotic wounds. Anesthesia: General endotracheal. Estimated Blood Loss: Less than 5 cc. Specimens: Cultures and debridement tissue. Findings: Multiple left foot chronic wounds, which were necrotic. Complications: None. Disposition: The patient transferred to recovery room in good condition. Brief History Of Present Illness: The patient is a 43-year-old man known to me from previous surgica l debridements whereby he had significant history of diabetes, hypertension, peripheral vascular dise ase with necrotic wounds on the foot debrided multiple times before in the past by myself and another provider. However, he continued to have worsening of these wounds with significant abscess drainage , and as such, he was debrided at that time. The patient continued to be noncompliant with the nonwe ightbearing status and wound care as described, and as such, he developed recurrent wounds as describ ed above. Procedure In Detail: After informed consent was obtained, patient was brought into the operating sierra m, prepped and draped in the usual sterile fashion after adequate anesthesia had been achieved. I co ntinued to debride areas on the dorsal foot where obvious necrosis was between the first and second t oe down through subcutaneous tissues and on the plantar aspect of the foot. In addition, there was a n open lateral wound with exposed bones in this area. This was debrided as well sharply predominantl y and all nonviable tissue was removed. There was abscess type material particularly on the dorsal a spect of the foot extending proximally. This area was cultured for both aerobic and anaerobic specia tion. After all nonviable tissues were removed, hemostasis was achieved with electrocautery. The wo und was then copiously irrigated with Betadine-soaked cleanser and irrigated until completely clear w ith sterile saline. Then, the wound was packed with Vashe soaked gauze and a sterile dressing was pl aced over top. The patient tolerated the procedure well without incident or complication, transferre d to PACU in good condition. All counts were correct at the end of the case. TK/MODL Voice ID: [id number] Report ID: [id number]
== END 2023-10-20 16:35 | disposition home or self-care (01) ==
LOC: OR 12:07
PROVIDERS: ATTEND Surgery
PROC: 0JDR3ZZ Extraction of Left Foot Subcutaneous Tissue and Fascia, Percutaneous Approach (ICD-10-PCS; principal; 2023-10-20 14:15)
DX: L97.523 Non-pressure chronic ulcer of other part of left foot with necrosis of muscle (principal); L97.526 Non-pressure chronic ulcer of other part of left foot with bone involvement without evidence of necrosis; I96 Gangrene, not elsewhere classified; I10 Essential (primary) hypertension; I73.9 Peripheral vascular disease, unspecified; E11.9 Type 2 diabetes mellitus without complications; L97.422 Non-pressure chronic ulcer of left heel and midfoot with fat layer exposed; L97.522 Non-pressure chronic ulcer of other part of left foot with fat layer exposed; Z91.199 Patient's noncompliance with other medical treatment and regimen due to unspecified reason
CPT/HCPCS: 11042; 87070; 87205; 82947 ×2; 88304; 87075; 87077; 87186; J2704; J2001; J2250; J3010; J2405; J7050; J7030; J1100